=== PATIENT | male | born 1965 | race Caucasian/White ===

== ENCOUNTER 2019-06-05 00:11 | Outpatient (CLI) | payer OTHER, SELFPAY ==
[2019-06-05 09:42] LABS: Calculated LDL 219 mg/dL; Cholesterol 289 mg/dL (<200); Glucose 84 mg/dL (74-106); HDL Cholesterol 45 mg/dL (40-60); Triglyceride 128 mg/dL (<150)
[2019-06-08 09:32] LABS: PSA, Screening 0.4 ng/mL (0.0-3.5)
[2019-06-08 10:47] LABS: HIV-1/2 Ag & Ab Screen Negative (Negative)
== END 2019-06-05 00:31 ==
PROVIDERS: PCP Family Medicine; Visit Provider Family Medicine
DX: Z00.00 Encounter for general adult medical examination without abnormal findings (principal); Z13.220 Encounter for screening for lipoid disorders; Z13.1 Encounter for screening for diabetes mellitus; Z11.4 Encounter for screening for human immunodeficiency virus [HIV]; Z12.5 Encounter for screening for malignant neoplasm of prostate; F17.210 Nicotine dependence, cigarettes, uncomplicated
CPT/HCPCS: 36415; 80061; 82947; 84153; 87389

== ENCOUNTER 2019-06-05 01:17 | Outpatient (CLI) | payer OTHER, SELFPAY ==
--- NOTE | 2019-06-05 08:04 | DI.RAD_ITS ---
EXAM: XR HIP PELVIS ADULT BL CLINICAL HISTORY: roly hip pain x 1 yr, M25.551, M25.552 TECHNIQUE: COMPARISON: No exams were available for comparison FINDINGS: Three views were obtained. There are mild degenerative changes of the SI joints. There is mild narr owing of the cartilaginous joint spaces both hips. There are sclerotic and cystic changes of the sup erior acetabula bilaterally. Slight marginal osteophyte formation of right femoral head noted. IMPRESSION: DJD of both hips, moderate, right greater than left.
== END 2019-06-05 01:37 ==
PROVIDERS: PCP Family Medicine; Visit Provider Family Medicine
DX: M25.551 Pain in right hip (principal); M25.552 Pain in left hip; M16.0 Bilateral primary osteoarthritis of hip
CPT/HCPCS: 73521

== ENCOUNTER 2019-07-17 03:31 | Outpatient (CLI) | payer OTHER, SELFPAY ==
--- NOTE | 2019-07-17 06:45 | DI.RAD_ITS ---
EXAM: RF JOINT INJECTION FLUORO GUID CLINICAL HISTORY: PAIN-R HIP INJ UNDER FLUORO,OA RT HIP, M16.11. TECHNIQUE: 2D and realtime digital imaging was performed. Fluoro time:.04 min,.39 mGy COMPARISON: No exams were available for comparison FINDINGS: Fluoroscopy was provided for guidance with right hip injection. A single hard copy image shows need le projecting from the lateral aspect to the hip joint and injection of contrast. Please see procedu re note for details.
--- NOTE | 2019-07-17 13:17 | W.PROCNOTE ---
Procedure Note Date of procedure: 07/17/19 Procedure: Right Hip Injection with Fluoroscopic Guidance Surgeon/Proceduralist/Physician: Oh Ernst Procedure Diagnosis: Right Hip Osteoarthritis Procedure Indications: Hayes has had persistent pain of the RIGHT hip and groin. Noninvasive measures have been tried. To serve as both diagnostic and therapeutic, an injection under fluoroscopy was recommended. I had discussed the risks of the procedure and the patient elected to proceed. Procedure Description: Hayes was greeted in the flouroscopy room. The correct side was identified and the consent was reviewed with the patient and signed. The patient was then placed in the supine position on the fluoroscopy table. The RIGHT hip was then prepped with Chloraprep. The anterolateral injection starting point was identiifed by bony landmarks and fluoroscopy. The skin and soft tissue in the tract of the injection was anesthetized with 1% Lidocaine. A spinal needle was then inserted deep into the hip joint at the level of the lateral femoral neck under fluoroscopic guidance. A small amount of Omnipaque solution was injected to confirm intraarticular placement. Once confirmed, the hip was injected with 6cc of 0.5% Bupivicaine and 80mg of Depo-Medrol. A bandaid was placed on the injection site. The patient tolerated the procedure well and noted improvement in pre-injection pain.
[2019-07-17] MEDS: Omnipaque 300 MG/ML 10 ML BTL IJ (13:19)
[2019-07-17] MEDS: methylPREDNISolone ACETATE 80 MG/ML VIAL IM (13:23)
[2019-07-17] MEDS: Bupivacaine 0.5% Pres-Free 10 ML VIAL 6 ML IJ (13:27)
== END 2019-07-17 03:51 ==
PROVIDERS: PCP Family Medicine; Visit Provider Student in an Organized Health Care Education/Training Program
DX: M25.551 Pain in right hip (principal); M16.11 Unilateral primary osteoarthritis, right hip
CPT/HCPCS: 20610; 77002; J1040

== ENCOUNTER 2019-08-15 18:01 | Emergency (ER) | payer OTHER, SELFPAY ==
[2019-08-15 18:10] VITALS: BP 115/67; PULSE 76; RESP 16; TEMP 36.7; O2SAT 98
--- NOTE | 2019-08-15 18:45 | DI.RAD_ITS ---
EXAM: XR CHEST 2V PA LATERAL CLINICAL HISTORY: dizzy TECHNIQUE: 2D digital imaging was performed. COMPARISON: No exams were available for comparison FINDINGS: MEDIASTINUM: Normal. HEART: Normal. PULMONARY VASCULATURE: Normal. LUNGS: Clear. PLEURAL SPACE: No pleural effusion or pneumothorax. BONE:Normal. OTHER FINDINGS:Normal. IMPRESSION: No acute pulmonary findings. DATA REPOSITORY: RADIATION DOSE DELIVERED:
[2019-08-15] MEDS: Meclizine 25 MG TAB PO (18:49)
[2019-08-15 19:04] LABS: Abs Immature Grans 0.02 k/cumm (0.0-0.09); Absolute Basophil Count 0.02 k/cumm (0.0-0.2); Absolute Lymphocyte Count 1.14 k/cumm (1.2-3.4); Absolute Monocyte Count 0.64 k/cumm (0.11-0.7); Absolute Neutrophil Count 8.62 k/cumm (1.2-6.7); Basophils % 0.2; Eosinophils % 0.9; HCT 40.1 % (40.0-50.0); HGB 14.1 g/dL (13.5-17.5); Immature Grans % 0.2 %; Lymphocytes % 10.8; Mean Corp. HGB Concentration 35.2 g/dL (32.0-36.0); Mean Corpuscular Hemoglobin 31.5 pg (27.0-33.0); Mean Corpuscular Volume 89.5 fL (80-95); Mean Platelet Volume 9.9 fL (8.0-11.0); Monocytes % 6.1; Neutrophils % 81.8; Platelet Count 227 x1000/uL (130-400); RBC 4.48 m/cumm (4.50-6.00); RBC Distribution Width 12.4 % (11.8-14.1); White Blood Cell Count 10.54 k/cumm (4.4-10.8)
[2019-08-15 19:05] LABS: Bilirubin Negative (Negative); Blood Negative (Negative); Clarity Clear (Clear); Glucose Negative (Negative); Ketones Negative (Negative); Leukocyte Esterase Negative (Negative); Nitrite Negative (Negative); Urobilinogen 0.2 EU/dL (Up TO 0.2)
--- NOTE | 2019-08-15 19:19 | DI.VRAD_ITS ---
PROCEDURE INFORMATION: Exam: XR Chest, 2 Views Exam date and time: 08/15/2019 7:13 PM Age: 54 years old Clinical indication: Other: Dizzy TECHNIQUE: Imaging protocol: XR of the chest Views: 2 views. COMPARISON: No relevant prior studies available. FINDINGS: Lungs: Unremarkable. No consolidation. Pleural space: Unremarkable. No pleural effusion. No pneumothorax. Heart/Mediastinum: Unremarkable. No cardiomegaly. Bones/joints: Unremarkable for patient's age. IMPRESSION: No acute cardiopulmonary findings. Dictated and Authenticated by: Kathie Marie MD. Ordering:DUYEN Armenta MD
[2019-08-15 19:26] LABS: ALT 41 U/L (16-63); AST 27 U/L (15-37); Albumin 4.1 g/dL (3.4-5.0); Alkaline Phosphatase 65 U/L (46-116); Anion Gap 7.3 mmol/L (3-11); BUN 15 mg/dL (7-18); Bilirubin, Total 1.1 mg/dL (0.2-1.0); CO2 29.7 mmol/L (21.0-32.0); CREATININE 1.11 mg/dL (0.70-1.30); Chloride 101 mmol/L (98-107); Glucose 137 mg/dL (74-106); Magnesium 1.7 mg/dL (1.8-2.4); Potassium 4.1 mmol/L (3.5-5.1); Sodium 138 mmol/L (136-145); TSH 0.98 uIU/mL (0.36-3.74); Total Protein 7.3 g/dL (6.4-8.2); Troponin I < 0.05 ng/Ml (<0.06)
--- NOTE | 2019-08-15 20:07 | W.ED.GENAD ---
Discharge Plan Disposition Patient Disposition: HOME Condition: Stable Discharge Details Chief Complaint: Dizzy/Sync Clinical Impression: Dizziness Primary Care Provider: Antonino Sharma ED Provider: Geovany Jauregui Home Meds and New Rx's Prescriptions: No Action One-A-Day Men's 50 Plus 400-20-370 mcg tablet 1 tab PO DAILY RF: 0 omega 6-gqr-wob-fish oil [Fish Oil] 1,000 mg (120 mg-180 mg) capsule 1 cap PO DAILY RF: 0 ibuprofen 800 mg tablet 800 mg PO Q8H PRN (Reason: pain) Qty: 90 RF: 3 rosuvastatin 20 mg tablet 20 mg PO DAILY Qty: 90 RF: 3 Discharge Instructions Instructions: Dizziness (ED) Additional Instructions: At this time work-up in the ER is unremarkable for emergent process. You are asymptomatic. As we discussed. Please watch for new or evolving symptoms and return immediately to the ER. Otherwise I recommend contacting your primary care provider Saturday morning for prompt outpatient reevaluation. Medical Decision Making 54-year-old gentleman who presents to the ER having felt dizzy, off balance, shaky, tingling, or warm all over that began around 5:00. By the time he got to the ER symptoms had almost completely resolved. He never had any pain during this process. He did not have a syncopal episode, did not feel as though he was going to pass out, certainly sounds like he had a vagal response. He currently appears well, nontoxic and is neurologically intact given his age and comorbidities I will initiate a cardiac work-up although low suspicion for ACS. Given he is neurologically intact, low suspicion for CVA, TIA, posterior stroke, etc., I do not believe that advanced imaging is emergently indicated. Will give oral meclizine, obtain laboratory values, and reassess. Patient comfortable this plan Initial laboratory values are unremarkable. I discussed these findings with patient. Upon reevaluation he reports that he is completely asymptomatic. He is agreeable to await a 3-hour repeat EKG and troponin for rapid cardiac rule out. Patient use the phone to speak with his significant other without difficulty. He was observed ambulating steadily to the restroom. Repeat EKG performed at [address] Hinson. Sinus rhythm, ventricular rate of 71. No acute ST elevation or depression segments. No dynamic changes when compared to initial EKG Repeat troponin is undetectable. Upon another reevaluation patient is resting comfortably, remains asymptomatic. We once again discussed his work-up here in the ER, the importance of prompt outpatient reevaluation and contacting his primary care provider on Saturday. He was also encouraged to return to the ER for new or evolving symptoms. Patient has no additional questions or concerns and is comfortable with this plan. Medical Records Medical records reviewed: Yes I reviewed the patient's medical records. Imaging Data Radiologic Study: Attestation: I personally reviewed and interpreted this imaging study as follows: Imaging: X-Ray My impression: Chest x-ray read by me as unremarkable, later confirmed by virtual radiology Lab Data Lab results reviewed: Yes I reviewed the patient's lab results. Lab results narrative: Laboratory Tests Range/Units 08/15/19 08/15/19 08/15/19 18:52 18:52 18:52 WBC (4.4-10.8) k/cumm 10.54 RBC (4.50-6.00) m/cumm 4.48 L Hgb (13.5-17.5) g/dL 14.1 Hct (40.0-50.0) % 40.1 MCV (80-95) fL 89.5 MCH (27.0-33.0) pg 31.5 MCHC (32.0-36.0) g/dL 35.2 RDW (11.8-14.1) % 12.4 Plt Count (130-400) x1000/uL 227 MPV (8.0-11.0) fL 9.9 Immature Gran % % 0.2 Neutrophils % 81.8 Lymphocytes % 10.8 Monocytes % 6.1 Eosinophils % 0.9 Basophils % 0.2 Absolute Neutrophils (1.2-6.7) k/cumm 8.62 H Absolute Lymphocytes (1.2-3.4) k/cumm 1.14 L Absolute Monocytes (0.11-0.7) k/cumm 0.64 Absolute Eosinophils (0.0-0.7) k/cumm 0.10 Absolute Basophils (0.0-0.2) k/cumm 0.02 Sodium (136-145) mmol/L 138 Potassium (3.5-5.1) mmol/L 4.1 Chloride (98-107) mmol/L 101 Carbon Dioxide (21.0-32.0) mmol/L 29.7 Anion Gap (3-11) mmol/L 7.3 BUN (7-18) mg/dL 15 Creatinine (0.70-1.30) mg/dL 1.11 Estimated GFR/1.73 m2 (mL/min/1.73m2) >= 60.00 Glucose (74-106) mg/dL 137 H Calcium (8.5-10.1) mg/dL 9.0 Magnesium (1.8-2.4) mg/dL 1.7 L Total Bilirubin (0.2-1.0) mg/dL 1.1 H AST (15-37) U/L 27 ALT (16-63) U/L 41 Alkaline Phosphatase (46-116) U/L 65 Troponin I (<0.06) ng/Ml < 0.05 Total Protein (6.4-8.2) g/dL 7.3 Albumin (3.4-5.0) g/dL 4.1 TSH (0.36-3.74) uIU/mL 0.98 Urine Color (Yellow) Yellow Urine Clarity (Clear) Clear Urine pH (5-8) 7.0 Ur Specific [place] (1.005-1.025) 1.020 Urine Protein (Negative) mg/dL Negative Urine Ketones (Negative) mg/dL Negative Urine Blood (Negative) Negative Urine Nitrite (Negative) Negative Urine Bilirubin (Negative) Negative Urine Urobilinogen (Up TO 0.2) EU/dL 0.2 Ur Leukocyte Esterase (Negative) Negative Urine Glucose (Negative) mg/dL Negative Range/Units 08/15/19 18:59 WBC (4.4-10.8) k/cumm RBC (4.50-6.00) m/cumm Hgb (13.5-17.5) g/dL Hct (40.0-50.0) % MCV (80-95) fL MCH (27.0-33.0) pg MCHC (32.0-36.0) g/dL RDW (11.8-14.1) % Plt Count (130-400) x1000/uL MPV (8.0-11.0) fL Immature Gran % % Neutrophils % Lymphocytes % Monocytes % Eosinophils % Basophils % Absolute Neutrophils (1.2-6.7) k/cumm Absolute Lymphocytes (1.2-3.4) k/cumm Absolute Monocytes (0.11-0.7) k/cumm Absolute Eosinophils (0.0-0.7) k/cumm Absolute Basophils (0.0-0.2) k/cumm Sodium (136-145) mmol/L Potassium (3.5-5.1) mmol/L Chloride (98-107) mmol/L Carbon Dioxide (21.0-32.0) mmol/L Anion Gap (3-11) mmol/L BUN (7-18) mg/dL Creatinine (0.70-1.30) mg/dL Estimated GFR/1.73 m2 (mL/min/1.73m2) Glucose (74-106) mg/dL Calcium (8.5-10.1) mg/dL Magnesium (1.8-2.4) mg/dL Total Bilirubin (0.2-1.0) mg/dL AST (15-37) U/L ALT (16-63) U/L Alkaline Phosphatase (46-116) U/L Troponin I (<0.06) ng/Ml < 0.05 Total Protein (6.4-8.2) g/dL Albumin (3.4-5.0) g/dL TSH (0.36-3.74) uIU/mL Urine Color (Yellow) Urine Clarity (Clear) Urine pH (5-8) Ur Specific [place] (1.005-1.025) Urine Protein (Negative) mg/dL Urine Ketones (Negative) mg/dL Urine Blood (Negative) Urine Nitrite (Negative) Urine Bilirubin (Negative) Urine Urobilinogen (Up TO 0.2) EU/dL Ur Leukocyte Esterase (Negative) Urine Glucose (Negative) mg/dL HPI General Mode of arrival: ambulatory. Date/Time Provider Initiated Documentation: 08/15/19 18:02. Limitations to Documentation: no limitations. Information obtained by: patient. HPI Narrative: This is a 54-year-old gentleman with a history of osteoarthritis, hyperlipidemia, current smoker, presenting to the ER today reporting at 430 he ate a large portion of spaghetti and then approximately 30 minutes later he felt tingling in his hands, feet, face, felt warm body wide and reports feeling dizzy. Upon further investigating he reports the dizziness was more of a altered or off-balance sensation he did not feel like the room was spinning. He denies any chest pain whatsoever. Denies headache, visual changes, neck pain, shortness of breath, abdominal pain, diarrhea, constipation, weakness, or numbness. He did report feeling nauseous when this began but that has resolved completely. He reports his symptoms now are only 1 or 2 out of 10 and have mostly resolved prior to coming to the ER. Of note his medical history reports hyperlipidemia associated with type 2 diabetes however patient denies history of diabetes does not take any medications for diabetes. Related Data Home Medications Medication Instructions Recorded Confirmed kkszxqjiyoej-xmw-cxcaw acid-vit 1 tab PO DAILY 05/29/19 08/15/19 K-lycop 400 mcg-20 mcg-370 mcg tablet omega 3-qjy-ndf-fish oil 1,000 mg 1 cap PO DAILY 05/29/19 08/15/19 (120 mg-180 mg) capsule rosuvastatin 20 mg tablet 20 mg PO DAILY #90 tab 06/16/19 08/15/19 ibuprofen 800 mg tablet 800 mg PO Q8H PRN #90 tab 07/13/19 08/15/19 Previous Rx's Medication Instructions Recorded rosuvastatin 20 mg tablet 20 mg PO DAILY #90 tab 06/16/19 ibuprofen 800 mg tablet 800 mg PO Q8H PRN #90 tab 07/13/19 Allergies Allergy/AdvReac Type Severity Reaction Status Date / Time No Known Allergies Allergy Verified 08/15/19 18:15 General Stated Complaint: Dizzy/Sync JONE: 3 Review of Systems Constitutional Constitutional: Denies fatigue, Denies fever(s) and Denies headache(s) Eyes Eyes: Denies change in vision ENT Ears, Nose, Mouth, and Throat: Denies vertigo, Reports dizziness, Denies otalgia, Denies headache(s) and Reports other (Reports feeling like water was in his ears 2 days ago) Cardiovascular Cardiovascular: Denies chest pain and Denies dyspnea Respiratory Respiratory: Denies cough and Denies dyspnea Gastrointestinal Gastrointestinal: Denies abdominal pain, Reports nausea and Denies vomiting Genitourinary Genitourinary: Denies dysuria Musculoskeletal Musculoskeletal: Denies back pain, Denies muscle weakness, Denies numbness and Reports tingling Integumentary/Breasts Skin/Breast: Denies rash Neurologic Neurologic: Denies confusion, Denies vertigo, Reports dizziness, Denies headache(s), Denies lack of coordination, Denies localized weakness, Denies numbness and Reports tingling Psychiatric Psychiatric: Denies confusion Endocrine Endocrine: Denies fatigue [facility] Medical History Abdominal pain (Acute) Fatigue (Acute) Hyperlipidemia associated with type 2 diabetes mellitus (Acute) Well adult (Acute) Family History Mother No problems noted. Father , age 74 Hyperlipidemia COPD (chronic obstructive pulmonary disease) Brother Alcohol abuse Substance abuse Son No problems noted. Social History Smoking/Tobacco Use Status: Current every day Tobacco Type: cigarettes Quit status: considering quitting Smoking risk assessment performed?: Yes Alcohol Intake: former Drug use: Daily Substance use type: marijuana Details: marijuana 3 hours ago Caregiver/Support person: No Household members: family Housing: apartment Communication Needs: None Do you need help understanding health information?: Never Pets and animals: Yes Pets and animals: dog(s) Sexually active: Yes Do you think of yourself as: straight/heterosexual Current gender identity: male What is your relationship status?: How often do you talk on the phone with friends or family?: three or more times per week How often do you get together with friends or relatives?: once per week How often do you attend jainism or baptism services?: decline to answer Do you belong to any clubs or organized social groups?: no Panel score (0-1 are the most socially isolated patients): 1 What type of physical activity do you participate in: none Frequency: does not exercise Dai/Roman Catholic: None Special dai needs: No Seatbelt use: always Helmet use: Yes Helmet use: always Drive intox or ride w/intox sulky driver: No Exam Const General: cooperative, healthy appearing, comfortable and no acute distress Orientation: alert, awake and oriented x3 HENMT Head: normal to inspection, normocephalic and atraumatic Ears: external ears normal, TM's normal bilaterally and EAC's normal Mouth: moist mucous membranes Throat: posterior oropharynx normal Eyes General: appearance normal, both eyes and all related structures Alignment and Position: alignment normal Periorbital: periorbital findings normal Eyelids: eyelids normal Conjunctivae: conjunctivae normal Sclera: sclerae normal Cornea: corneas normal Pupils: PERRL EOM: EOM intact bilaterally and No nystagmus Direct ophthalmoscopy: normal light reflex Neck Neck: normal visual inspection, full ROM, no lymphadenopathy, no meningeal signs, trachea midline and supple Resp Effort & Inspection: normal respiratory effort and able to speak in complete sentences Auscultation: clear to auscultation bilaterally Cardio Rate: regular rate Rhythm: regular rhythm GI Palpation: soft, not firm, no guarding, not rigid and nontender Auscultation: normal bowel sounds Back/Spine/Pelvis Back: No back tenderness Skin General skin exam: no rashes or lesions noted Neuro General: patient alert, patient awake, patient oriented x3, moves all extremities and no focal motor deficits Cranial Nerves: CN's II-XI intact bilaterally and no nystagmus Cognition: normal cognition Speech: speech normal Gait: normal gait Motor: muscle tone normal throughout, strength 5/5 throughout, no pronator drift and no movement abnormalities noted Sensory Exam: no sensory deficits noted Coordination: klqnrk-en-zhpm test normal, Does not sway with eyes open and rapid alternating movement UE normal Extrem General: normal to inspection, full ROM and capillary refill normal Psych Appearance: grossly normal Mental Status: mental status grossly normal Course Vital Signs Vital signs: Vital Signs Temperature 36.7 C 08/15/19 18:10 Pulse 76 08/15/19 18:10 Respiratory Rate 16 08/15/19 18:10 Blood Pressure 115/67 08/15/19 18:10 Pulse Oximetry 98 08/15/19 18:10 Temperature 36.7 C 08/15/19 18:10 Pulse 76 08/15/19 18:10 Respiratory Rate 16 08/15/19 18:10 Respiratory Effort 08/15/19 18:29 Respiratory Depth Normal 08/15/19 18:29 Blood Pressure 115/67 08/15/19 18:10 Blood Pressure Position Supine 08/15/19 18:10 Pulse Oximetry 98 08/15/19 18:10 Oxygen Delivery Method Room Air 08/15/19 18:10 Oxygen Flow Rate 0 08/15/19 18:10 Pain Level 0 08/15/19 18:10 Lab/Test Results Lab/Test Results: Laboratory Tests Range/Units 08/15/19 08/15/19 08/15/19 18:52 18:52 18:52 WBC (4.4-10.8) k/cumm 10.54 RBC (4.50-6.00) m/cumm 4.48 L Hgb (13.5-17.5) g/dL 14.1 Hct (40.0-50.0) % 40.1 MCV (80-95) fL 89.5 MCH (27.0-33.0) pg 31.5 MCHC (32.0-36.0) g/dL 35.2 RDW (11.8-14.1) % 12.4 Plt Count (130-400) x1000/uL 227 MPV (8.0-11.0) fL 9.9 Immature Gran % % 0.2 Neutrophils % 81.8 Lymphocytes % 10.8 Monocytes % 6.1 Eosinophils % 0.9 Basophils % 0.2 Absolute Neutrophils (1.2-6.7) k/cumm 8.62 H Absolute Lymphocytes (1.2-3.4) k/cumm 1.14 L Absolute Monocytes (0.11-0.7) k/cumm 0.64 Absolute Eosinophils (0.0-0.7) k/cumm 0.10 Absolute Basophils (0.0-0.2) k/cumm 0.02 Sodium (136-145) mmol/L 138 Potassium (3.5-5.1) mmol/L 4.1 Chloride (98-107) mmol/L 101 Carbon Dioxide (21.0-32.0) mmol/L 29.7 Anion Gap (3-11) mmol/L 7.3 BUN (7-18) mg/dL 15 Creatinine (0.70-1.30) mg/dL 1.11 Estimated GFR/1.73 m2 (mL/min/1.73m2) >= 60.00 Glucose (74-106) mg/dL 137 H Calcium (8.5-10.1) mg/dL 9.0 Magnesium (1.8-2.4) mg/dL 1.7 L Total Bilirubin (0.2-1.0) mg/dL 1.1 H AST (15-37) U/L 27 ALT (16-63) U/L 41 Alkaline Phosphatase (46-116) U/L 65 Troponin I (<0.06) ng/Ml < 0.05 Total Protein (6.4-8.2) g/dL 7.3 Albumin (3.4-5.0) g/dL 4.1 TSH (0.36-3.74) uIU/mL 0.98 Urine Color (Yellow) Yellow Urine Clarity (Clear) Clear Urine pH (5-8) 7.0 Ur Specific [place] (1.005-1.025) 1.020 Urine Protein (Negative) mg/dL Negative Urine Ketones (Negative) mg/dL Negative Urine Blood (Negative) Negative Urine Nitrite (Negative) Negative Urine Bilirubin (Negative) Negative Urine Urobilinogen (Up TO 0.2) EU/dL 0.2 Ur Leukocyte Esterase (Negative) Negative Urine Glucose (Negative) mg/dL Negative
[2019-08-15 21:28] LABS: Troponin I < 0.05 ng/Ml (<0.06)
[2019-08-15 21:31] VITALS: BP 106/65; PULSE 69; RESP 17; O2SAT 98
== END 2019-08-15 21:50 | disposition home or self-care (01) ==
PROVIDERS: Emergency Provider Physician Assistant; PCP Family Medicine
DX: R42 Dizziness and giddiness (principal)
CPT/HCPCS: 80053; 93005; 99284; 71046; 81003; 83735; 84443; 84484; 85025; 93010

== ENCOUNTER 2019-11-23 07:30 | Outpatient (CLI) | payer OTHER, SELFPAY ==
[2019-11-27 18:11] LABS: SARS-CoV-2 RNA Undetected (Undetected); SARS-CoV-2 Specimen Source Nasopharynx
== END 2019-11-23 07:50 ==
PROVIDERS: PCP Family Medicine; Visit Provider Family Medicine
DX: Z11.59 Encounter for screening for other viral diseases (principal)
CPT/HCPCS: U0003

== ENCOUNTER → 2020-06-01 18:55 | Outpatient (REF) | payer OTHER, SELFPAY ==
[2020-06-01 22:18] LABS: ALT 47 U/L (16-63); AST 31 U/L (15-37); Calculated LDL 102 mg/dL (<100); Cholesterol 174 mg/dL (<200); HDL Cholesterol 53 mg/dL (40-60); Triglyceride 98 mg/dL (<150)
== END ==
LOC: NCHCN 18:55
PROVIDERS: PCP Family Medicine; Visit Provider Family Medicine
DX: E78.5 Hyperlipidemia, unspecified (principal); E11.69 Type 2 diabetes mellitus with other specified complication
CPT/HCPCS: 80061; 84450; 84460

== ENCOUNTER 2020-07-11 11:06 | Outpatient (CLI) | payer OTHER, SELFPAY ==
--- NOTE | 2020-07-11 10:00 | DI.RAD_ITS ---
EXAM: XR KNEE RT 3V AP,LAT,PABLO CLINICAL HISTORY: R knee pain. TECHNIQUE: 2D digital imaging was performed. COMPARISON: CR,XR XR CHEST 2V PA LATERAL from 08/15/2019 FINDINGS: BONES: No acute fracture is present. No bony destructive lesion is seen. JOINTS: The knee is normally aligned. Small joint effusion. SOFT TISSUE: Normal. IMPRESSION: Small joint effusion otherwise unremarkable examination. DATA REPOSITORY: RADIATION DOSE DELIVERED:
--- NOTE | 2020-07-11 10:00 | DI.RAD_ITS ---
EXAM: XR PELVIS AP CLINICAL HISTORY: R hip OA. TECHNIQUE: 2D digital imaging was performed. COMPARISON: CR XR HIP PELVIS ADULT BL from 06/05/2019 FINDINGS: There are noak-ut-arhurpmr degenerative changes of the right hip with joint space narrowing, subchond ral sclerosis and periarticular spurring present. More mild degenerative changes are seen in the lef t hip. The sacroiliac joints are intact as is the symphysis pubis. The bones are intact and normall y mineralized. The soft tissues are unremarkable. IMPRESSION: Stable degenerative changes of the right hip. DATA REPOSITORY: RADIATION DOSE DELIVERED:
== END 2020-07-11 11:07 | disposition home or self-care (01) ==
LOC: DIORS 11:06
PROVIDERS: PCP Family Medicine; Referring Provider Family Medicine; Visit Provider Physician Assistant
DX: M25.551 Pain in right hip (principal); M16.11 Unilateral primary osteoarthritis, right hip; M25.561 Pain in right knee; M25.461 Effusion, right knee
CPT/HCPCS: 73562; 72170

== ENCOUNTER 2020-07-25 03:12 | Outpatient (CLI) | payer OTHER, SELFPAY ==
[2020-07-25 10:53] LABS: HCT 45.1 % (40.0-50.0); HGB 15.3 g/dL (13.5-17.5); MCH 30.7 pg (27.0-33.0); MCHC 33.9 % (32.0-36.0); MCV 90.6 fL (80-95); MPV 10.5 fL (8.0-11.0); Platelet Count 212 10^3/uL (130-400); RBC 4.98 10^6/uL (4.36-5.78); RDW-SD 39.9 fL; WBC 7.29 10^3/uL (4.4-10.8)
[2020-07-25 11:12] LABS: Hemoglobin A1C 5.7 % (<5.7)
[2020-07-25 11:48] LABS: Anion Gap 8.5 mmol/L (3-11); BUN 14 mg/dL (7-18); CO2 28.5 mmol/L (21.0-32.0); CREATININE 0.9 mg/dL (0.70-1.30); Calcium 9.2 mg/dL (8.5-10.1); Chloride 104 mmol/L (98-107); Glucose 73 mg/dL (74-106); Potassium 4.4 mmol/L (3.5-5.1); Sodium 141 mmol/L (136-145)
[2020-07-25 11:55] LABS: Source Nasal/Nares
[2020-07-25 22:00] LABS: COVID-19 PCR Negative (Negative)
== END 2020-07-25 03:13 | disposition home or self-care (01) ==
LOC: LBO 03:12
PROVIDERS: PCP Family Medicine; Visit Provider Student in an Organized Health Care Education/Training Program
DX: M25.551 Pain in right hip (principal); M16.11 Unilateral primary osteoarthritis, right hip; Z01.818 Encounter for other preprocedural examination; Z01.812 Encounter for preprocedural laboratory examination; R73.09 Other abnormal glucose
CPT/HCPCS: 36415; 80048; 85027; 86850; 86900; 86901; 83036

== ENCOUNTER 2020-07-27 08:19 | Day surgery (SDC) | payer OTHER, SELFPAY ==
[2020-07-27] VITALS (10 sets, daily range): BP systolic 100–127; BP diastolic 49–77; PULSE 52–67; RESP 8–18; TEMP 36.2–36.7; O2SAT 98–100
[2020-07-27] MEDS: Celecoxib 200 MG CAP 400 MG PO (08:56)
[2020-07-27] MEDS: Acetaminophen 500 MG TAB 1000 MG PO (08:56)
[2020-07-27] MEDS: Lactated Ringers 1,000 ML 80 ML IV (09:14)
[2020-07-27] MEDS: ceFAZolin 2 GM/50 ML BAG IVPB (10:57)
[2020-07-27] MEDS: Bupivacaine 0.25% Pres-Free 30 ML VIAL (11:45)
[2020-07-27] MEDS: Ketorolac 30 MG/ML VIAL (11:46)
--- NOTE | 2020-07-27 12:29 | DI.RAD_ITS ---
EXAM: XR HIP RT IN OR CLINICAL HISTORY: RIGHT OSTEOARTHRITIS. TECHNIQUE: 2D digital imaging was performed. COMPARISON: Prior x-rays 07/11/2020 FINDINGS: Prostate was provided during right hip arthroplasty. Supplied image reveals satisfactory position al ignment of the components of the prosthesis. Fluoroscopy time 44.7 seconds; total cumulative dose 5.43mGy IMPRESSION: DATA REPOSITORY: RADIATION DOSE DELIVERED:
--- NOTE | 2020-07-27 13:49 | W.PM.OP ---
Date of service: 07/27/20 Time of Service: 13:50 Operative Note Operative Note DATE OF PROCEDURE: 07/27/20 PRE-OP DIAGNOSIS: Right Hip Osteoarthritis POST-OP DIAGNOSIS: same PROCEDURE: Right Anterior Total Hip Arthroplasty SURGEON: Oh Ernst HEATER MECHANIC: Justino Radford ANESTHESIA TYPE: Spinal Refer to Anesthesia Record ESTIMATED BLOOD LOSS: 200 PATHOLOGY: none sent TOURNIQUET TIME: 0 COMPLICATIONS: None Patient was transported to: PACU Patient's condition: stable Implants: 1. Depuy [place] Acetabular Component, 52mm 2. Depuy Acetabular Liner, [id number] 3. Depuy Corail Standard 125 degree Collared Femoral Stem, Size 11 4. Depuy Altrx Ceramic Femoral Head, Size 36+5mm Indications: I have seen Hayes in clinic for symptoms of hip arthritis, confirmed with radiographic findings. Hayes has exhausted nonoperative methods and was having significant limitations in daily function and desired better function and less pain. I discussed the technical details of a hip replacement. I explained the risks of the procedure to include, but not limited to, bleeding, infection, pain, stiffness, fracture, damage to nerves and vessels, damage to muscles and tendons, loosening, instability, leg length inequality, need for repeat procedure, blood clot and cardiopulmonary demise. Despite these risks, he elected to proceed. Findings: There was significant signs of arthritis of the superior femoral head and superior acetabulum. Procedure Description: Hayes was greeted in the preoperative holding area where the correct side was identified and marked. The consent was reviewed with the patient and signed. The history and physical was updated. All questions were answered. He was taken back to the operating room. A spinal anesthestic was then administered. The feet were wrapped with cast padding and Coban and then placed into the boot liners and then into the boots. Care was taken to protect the skin and make sure the heels were fully down and the boots were stable. The patient was then positioned onto the HANA table. Both legs were held in a neutral position. SCDs were applied. The patient was then slid down onto a peroneal post. Prophylactic antibiotics in the form of Cefazolin were administered. 1g of Tranxemic Acid was given intravenously within 30 minutes of incision. The right leg was then prepped with Chloraprep and draped in a standard fashion. A second prep with Chloraprep was performed prior to placement of a shower-curtain type drape with Iodine impregnated skin protection. A timeout to confirm correct identity, side and site, procedure, allergies, anesthesia, and medical concerns was performed. An obliquely oriented incision was made starting lateral to the ASIS and running distal over the Tensor Fascia Mervat (TFL) muscle belly toward the fibular head, approximately 10cm. The skin and soft tissue was dissected sharply, through Suad?s fascia, and to the fascia of the TFL. With the fascia and superior border of the IT band identified, the fascia was incised with a new knife just above any perforators from the IT band. The TFL muscle belly was bluntly dissected away from the fascia and moved laterally. The fat between TFL and rectus was identified to ensure the dissection was not within the TFL. Blunt dissection created space between abductors and the capsule and retractor was placed over the lateral femoral neck. The fibers of the rectus femoris tendon were identified and these were freed from the anterior capsule. A second cobra retractor was placed around the medial femoral neck. The TFL was further retracted laterally to show the deep fascia. Careful dissection through this layer identified three main crossing vessels of the lateral femoral circumflex. These were cauterized in multiple locations and then cut without any noticeable bleeding. The TFL was further released bluntly from the deep fascia to expose anterior hip capsule and fat The Juan Jose orthopaedic retractor was then placed beneath the TFL and against sartorius and medial soft tissues to protect and retract the soft tissues. A T-capsulotomy was then performed starting at the superior lateral acetabulum and moving distally to the intertrochanteric ridge. These capsular flaps were tagged with a No. 1 Ethibond and elevated from within. The capsular flaps were released to the shoulder of the lateral neck and to the lesser trochanter to give excellent visualization of the proximal femur. A neck osteotomy was performed using an oscillating saw based on preoperative templates. This cut started in the shoulder and of the lateral neck and exited medially. The saw was at all times directed medially to avoid injury to the greater trochanter. Gross traction was applied to the leg and the osteotomy opened. The femoral head was removed with a corkscrew, making sure to protect the TFL on its exit. Traction was released after head removal. This was measured on the back table to determine the starting reamer size. Portions of the rectus obscuring visualization were minimally elevated off the superior acetabulum. An anterior retractor was placed over the anterior wall between capsule and labrum and attached to the Gripper retraction system. The femur was rotated to 90 degrees and medial capsule was fully released until the lesser trochanter was palpable and visible; the femur was returned to 30 degrees. A posterior retractor was placed similarly between capsule and labrum. This provided excellent visualization. The contents of the cotyloid fossa were removed with electrocautery and the labrum was removed with a knife. There was significant chondromalacia of the superior acetabulum. Acetabular reaming began with a 47mm reamer. This first reaming was directed anterior to posterior and medial to get down to the true floor. This was inspected and reamed until the true floor was reached. The anterior retractor was then released and entry and exit was provided by traction on the capsular flaps. I then reamed sequentially up to a 51mm reamer where good fit was obtained. The larger reamers were oriented based on anatomical reference of the anterior and lateral saenz to ensure proper abduction and anteversion. Positioning and size was confirmed with the fluoroscopy. A 52mm Depuy [place] acetabular component was selected. The acetabulum was reamed around the periphery with the selected acetabular size to prevent a rim fit. The deep tissues were irrigated. The acetabular component was then impacted in a position of about 40-45 degrees of abduction and 15-20 degrees of anteversion, using the patient?s anatomy as the ultimate landmark. Fluoroscopy was used to confirm this. There was excellent tire buster of the acetabular component and the inserting handle was removed. The acetabular liner, Depuy [id number] polyethylene liner, was inserted and lined up with the tines of the acetabular component. There was no soft tissue interposition. The liner was then impacted into position and confirmed to be well-seated. A portion of the dorian-articular cocktail was then injected around the acetabulum into the capsule and periosteum. This cocktail consisted of 50cc of 0.25% Bupivicaine and 20cc of Exparel and 30mg of Ketorolac. The leg was rotated to 120 degrees. Any remaining medial capsule was released until the lesser trochanter was easily palpable. A retractor was placed medially. The lateral capsule was further released into the shoulder to allow access to the greater trochanter. A Colbert retractor was placed over the greater trochanter which allowed the trochanter to flip in front of the capsule for excellent exposure. The leg was brought down into maximal extension and 20 degrees of adduction while ensuring there was no impingement on the acetabulum. Any remnant capsule within the trochanter was released. Piriformis and obturator externis were identified and protected. There was excellent access to the proximal femur. The lateral neck remnant was removed with a rongeur. A blunt canal probe was used to identify the canal and trajectory for later broaching. A box osteotome initiated the broach course. A small curved rasp and a curved curette were used to work laterally. Broaching then began with a size 8 Corail broach. This was inserted manually around the trochanter and into the canal before mallet blows. The broach was seated to a few millimeters below the cut level based on the neck cut and the preoperative template. Sequential broaching was continued with the Insight Plusse pneumatic broaching device until a tight fit was obtained with good rotational control of the femur. The broach was not quite as deep as I was expecting but there was excellent fit so I trialed a standard 125 degree neck instead of the planned high offset. This was inserted along with a +5 trial head. The leg was brought out of extension and adduction and then reduced with traction and internal rotation. The leg was stable anteriorly in a position of 30 degrees of extension and 90 degrees of external rotation. Fluoroscopy was used to ensure there was no fracture and the stem was seated well. Leg lengths were checked with an AP pelvis and pelvic reference points. [employer] navigation system was used to confirm appropriate positioning and leg length and offset. Once content with the desired offset and leg lengths, the leg was brought back into extension, external rotation and adduction. The periosteum and surrounding tissue was injected with remaining portion of the dorian-articular cocktail. The proximal femur was irrigated as well as the deep tissues. The Depuy Corail standard 125 degree collared stem, size 11, was then manually inserted into the proximal femur making sure to control rotation. It was then malleted into position with light blows, giving breaks to allow bone expansion and decrease risk of fracture. The selected Depuy Altrx Ceramic Head, size 36+5mm, was then placed onto the clean and dry trunnion and secured with impaction onto the tapered fit. The leg was brought back out of extension and adduction and reduced with traction and internal rotation. Stability was confirmed with no shuck at 90 degrees of external rotation and 30 degrees of extension. No impingement through range of motion arc. Final x-ray images were obtained with fluoroscopy to confirm adequate positioning and no intraoperative fracture. The deep tissues were thoroughly irrigated with Irrisept chlorhexadine solution. The second dose of TXA 1g was administered intravenously.The capsule was then reapproximated with the previously placed Ethibond sutures. The TFL fascia was finally closed with a No. 2 Stratafix, barbed suture. Deep tissues were then reapproximated with 0 Vicryl and a running 2-0 Vicryl. The skin was closed with a running 4-0 Monocryl in a subcuticular fashion. This was reinforced with skin glue. A Mepilex silver dressing was applied. At the end of the case, all counts were correct. Hayes was transferred to the hospital bed without difficulty and suffering no apparent complication. Hayes has a good prognosis. Physical therapy will start today and without restrictions, weight-bearing as tolerated. Aspirin 81mg BID will be used for DVT prophylaxis.
[2020-07-27] MEDS: oxyCODONE 5 MG TAB PO (13:56)
--- NOTE | 2020-07-27 14:02 | W.PM.DSUDISC ---
Discharge Plan Disposition Patient Disposition: HOME Condition: Good Discharge Details Reason For Visit: Right Hip Arthritis Attending Provider: Oh Ernst Primary Care Provider: Antonino Sharma Home Meds and New Rx's Prescriptions: New aspirin 81 mg tablet,delayed release (DR/EC) 81 mg PO BID Qty: 60 RF: 0 acetaminophen 500 mg tablet 1,000 mg PO Q8H PRN (Reason: pain) Qty: 90 RF: 3 pantoprazole 40 mg tablet,delayed release (DR/EC) 40 mg PO DAILY Qty: 30 RF: 0 docusate sodium [Colace] 100 mg capsule 100 mg PO BID PRNQty: 10 RF: 0 ibuprofen 600 mg tablet 600 mg PO TID PRN (Reason: pain) Qty: 90 RF: 3 oxycodone 5 mg tablet 5 mg PO Q4H Qty: 12 RF: 0 Continued One-A-Day Men's 50 Plus 400-20-370 mcg tablet 1 tab PO DAILY RF: 0 omega 8-zoo-ixu-fish oil [Fish Oil] 1,000 mg (120 mg-180 mg) capsule 1 cap PO DAILY RF: 0 rosuvastatin 20 mg tablet 20 mg PO DAILY Qty: 90 RF: 3 Discontinued ibuprofen 800 mg tablet 800 mg PO Q8H PRN (Reason: pain) Qty: 90 RF: 3 Discharge Instructions Additional Instructions: Total Hip Discharge Instructions Activity: The most important activity is to walk. You should try to take short walks a few times a day. You have no restrictions on movement or positioning, but do not try to force what you do. You will find some stiffness and weakness with hip flexion (lifting your knee). Do not try to strengthen this too early, continue to practice walking and stairs and this will come. - Outpatient physical therapy can be helpful to help return you to a normal gait and improve your flexibility and strength. This can start around 2 weeks. For some patients, it?s not necessary. Usually this is determined at the time of discharge or at the first post-operative visit. - You should wear the VIVIANA hose on both legs for 2 weeks. Dressing: Keep the surgical dressing in place for at least one week. After the first week it may be removed and replace with light gauze and tape or nothing. It may get wet after 3 days but avoid soaking the dressing. If it gets wet, just lightly pat dry. It is important to always keep some gauze between skin folds, especially when you are sitting. Spend some time with the wound exposed when you are lying flat as the incision does wrinkle onto itself. Medications: - You should take Tylenol and an anti-inflammatory, Ibuprofen, as your primary pain control medications. - You have been prescribed a stronger pain medication Oxycodone for breakthrough pain, take as needed as prescribed. - You have also been prescribed a stomach acid reduction agent Pantoprozole to help reduce stomach acid and reflux. - You will be taking Aspirin 81mg twice a day for DVT prevention unless instructed otherwise. - If you have constipation you should take Colace or Miralax (both [id number]). It takes most people 3-4 days to have a bowel movement. Follow-up: 2 weeks If you have any acute concerns or questions, please do not hesitate to contact the office at [phone]. You may contact Dr. Ernst with any questions after hours through the hospital at [phone] or on his cell phone at [phone]. Referrals: Oh Ernst MD [ [facility]] - Equipment/Supplies: Walker Activity:: Activity as Tolerated Shower/Bathe:: 72 hours Diet:: As Tolerated Discharge Orders Discharge Orders: Discharge Order (Routine); Ordered 07/27/20 Ordered By: Oh Ernst DS: Diagnosis Discharge Diagnosis (1) Osteoarthritis of right hip: Status: Acute
--- NOTE | 2020-07-27 15:13 | PT.INIE ---
Date of service: 07/27/20 Time of Service: 15:13 PT Notes Visit Reasons: Right Hip Arthritis Physical Therapy Day Surgery Unit Initial Evaluation Date: 07/27/2020 Referring Doctor: Oh Ernst MD PT Orders: PT CONSULT: Status post Ortho surgery. Status post right RUBA. Precautions: Fall. Standard. WBAT on right LE with AD. Patient Profile/Admitting Diagnosis: Hayes is a 55-year-old male with primary osteoarthritis of the right hip and is status post right total hip arthroplasty on postoperative day 0. PMHX: Medical History Abdominal pain Fatigue Hyperlipidemia associated with type 2 diabetes mellitus Tobacco abuse Well adult Social History/Home Situation: Lives in a private home with 4 steps to enter and a rail on the right side going up. Will have support at home. Works at [employer] here in town Equipment Owned/DME: [facility] Subjective: Agreeable to PT consult. Reports 1-2/10 pain in the right hip that increased to 2-3/10 with ambulation activity. Denies headache, chest pain, and dizziness throughout session. Objective: General Observation: Mepilex Ag over surgical incision. IV access in right UEs. Bilateral TDS on the legs. Mental Status: Alert and oriented x4 Pain: 1-2/10 at rest and 2-3/10 after ambulation activity in the right hip Vital Signs: Within normal limits as closely monitored by Nurse Cruz before during and after PT session. ROM: Right Lower Extremity: Hip flexion lacks the last 10 degrees due to discomfort. Hip abduction WFL. Knee flexion WFL. Ankle dorsiflexion WFL. Ankle plantarflexion WFL. Left Lower Extremity: Hip flexion WFL. Hip abduction WFL. Knee flexion WFL. Ankle dorsiflexion WFL. Ankle plantarflexion WFL. Strength: Right Lower Extremity: Hip flexors 3-/5. Hip abductors 4/5. Knee flexors 5/5. Knee extensors 4/5. Ankle dorsiflexors 5/5. Ankle plantarflexors 5/5. Left Lower Extremity:Hip flexors 5/5. Hip abductors 5/5. Knee flexors 5/5. Knee extensors 5/5. Ankle dorsiflexors 5/5. Ankle plantarflexors 5/5. Sensation: Intact as to pain and pressure on bilateral lower extremities. Bed Mobility/Transfers: Rolling independent Supine to sit independent Sit to supine independent Sit to stand standby assist Stand to sit standby assist Bed to chair standby assist Chair to bed standby assist Gait: Guided patient through level surface ambulation of 200 feet using front wheeled walker with step to heel?toe gait pattern with pain level in the right hip of food?3/10 pain. Minimal verbal cues provided for walker management and directional change. Balance: Static Sitting: Normal Dynamic Sitting: Normal Static Standing: Fair Dynamic Standing: Fair Special Tests: Mobility Limitations Standardized Measure [facility]-P[facility] 6 clicks Basic Mobility Inpatient Short Form: Raw Score: 23 CMS Score: 11% deficit Informed Consent/Education: Patient instructed in purpose of PT consult and plan of care. Assessment: Hayes will benefit from the use of a front wheeled walker for all mobility ADL performance in order to reduce fall risk and maximize independence at home. He will have a good support as he recovers at home. Patient presents with clinical signs and symptoms consistent with current/admitting diagnoses that have resulted to mobility limitations, gait instability, generalized weakness, and impairment of motor control as demonstrated by the following impairment level findings: 1. Decreased strength to right hip major muscle groups 2. Impaired standing balance 3. Impaired activity tolerance 4. Limitation of joint range of motion in right hip flexion Impairments are contributing to the following functional limitations: 1. Inability to safely ambulate without assistive device 2. Increase completion time for mobility ADL performance 3. Increased fall risk Patient is assessed as a 82226 moderate complexity based on the following: History: 55-year-old male with impairment level findings, functional limitations, and past medical history as indicated above Examination: Demonstrable impairment in strength, balance, and mobility level with underlying impairments and functional limitations as documented above Presentation: Evolving Decision Makin moderate complexity Goals: N/A. PT evaluation and 1 treatment session only for functional mobility training and HEP instruction. Plan of Care/Treatment Plan: N/A. PT evaluation and 1 treatment session only for functional mobility training and HEP instruction. PT INTERVENTION RECEIVED TODAY: Assessment for and fitting of appropriate assistive device. Guided patient through bed mobility, transfers, and mobility ADL performance on level surfaces and stairs Educated and trained patient on HEP performance to maximize post-surgical functional outcomes. DISCHARGE RECOMMENDATIONS: Home when medically cleared by orthopedic surgeon. Patient to facilitate return to independent ADL performance and return to work without restrictions. TREATMENT CODE/TIME: 88007 x 25 minutes, 975 0 x 30 minutes beginning at 15:13 PM. Thank you for the opportunity to participate in the care of this patient. Yumi Caldwell PT, DPT, CLT [facility] [place], [place]
== END 2020-07-27 16:55 | disposition home or self-care (01) ==
PROVIDERS: PCP Family Medicine; Visit Provider Student in an Organized Health Care Education/Training Program
PROC: (CPT 27130; principal; 2020-07-27 11:45)
DX: M16.11 Unilateral primary osteoarthritis, right hip (principal); F17.210 Nicotine dependence, cigarettes, uncomplicated; E78.5 Hyperlipidemia, unspecified; E11.9 Type 2 diabetes mellitus without complications
CPT/HCPCS: 27130; 20985; 97162; 97530; 73501; J0690; J1885; J2001; J2250

== ENCOUNTER 2020-08-11 10:02 | Outpatient (CLI) | payer OTHER, SELFPAY ==
--- NOTE | 2020-08-11 09:30 | DI.RAD_ITS ---
EXAM: XR HIP RT COMPLETE AP PELVIS CLINICAL HISTORY: 1ST POST OP R RUBA. TECHNIQUE: 2D digital imaging was performed. COMPARISON: CR XR PELVIS AP from 07/11/2020 FINDINGS: Satisfactory position alignment of components of the recently placed hip right prosthesis. No eviden ce of fracture or loosening. No radiographic evidence of osteomyelitis. The opposite-left hip appea rs unremarkable. IMPRESSION: DATA REPOSITORY: RADIATION DOSE DELIVERED:
== END 2020-08-11 10:03 | disposition home or self-care (01) ==
LOC: DIORS 10:09
PROVIDERS: PCP Family Medicine; Referring Provider Family Medicine; Visit Provider Physician Assistant
DX: Z96.641 Presence of right artificial hip joint (principal)
CPT/HCPCS: 73502

== ENCOUNTER 2020-09-14 07:13 | Emergency (ER) | payer OTHER, SELFPAY ==
[2020-09-14 07:17] VITALS: BP 141/64; PULSE 74; RESP 18; TEMP 36.6; O2SAT 99
[2020-09-14 07:33] LABS: Bilirubin Negative (Negative); Blood Large (Negative); Clarity Sl Cloudy (Clear); Glucose Negative (Negative); Ketones Negative (Negative); Leukocyte Esterase Negative (Negative); Nitrite Negative (Negative); Specific Gravity 1.025 (1.005-1.025); Urobilinogen 0.2 EU/dL (Up TO 0.2)
[2020-09-14 07:41] LABS: Bacteria Negative HPF (Negative); C & S Indicated? No; Casts Negative LPF (Negative); Crystals Negative HPF (Negative); Epithelial Cells Few HPF (Negative); Mucus Negative (Negative); RBC >50 HPF (0-2); WBC 0-2 HPF (0-5)
[2020-09-14] MEDS: Normal Saline 1,000 ML 100 ML IV (07:57)
[2020-09-14 08:00] LABS: Abs Immature Grans 0.04 10^3/uL (0.0-0.06); Absolute Basophil Count 0.07 10^3/uL (0.0-0.2); Absolute Eosinophil Count 0.22 10^3/uL (0.0-0.7); Absolute Lymphocyte Count 2.63 10^3/uL (1.2-3.4); Absolute Monocyte Count 0.78 10^3/uL (0.1-0.8); Absolute Neutrophil Count 3.31 10^3/uL (1.2-6.7); Eosinophils % 3.1; HCT 42.7 % (40.0-50.0); HGB 14.5 g/dL (13.5-17.5); Immature Grans % 0.6; Lymphocytes % 37.3; MCH 31.2 pg (27.0-33.0); MCV 91.8 fL (80-95); MPV 9.9 fL (8.0-11.0); Monocytes % 11.1; Neutrophils % 46.9; Nucleated RBC 0 %; Platelet Count 274 10^3/uL (130-400); RBC 4.65 10^6/uL (4.36-5.78); RDW 12.5 % (11.8-14.1); RDW-SD 42.2 fL; WBC 7.05 10^3/uL (4.4-10.8)
--- NOTE | 2020-09-14 08:08 | ED.GENADUL_ITS ---
Discharge Plan Disposition Patient Disposition: HOME Condition: Improving Discharge Details Clinical Impression: Mass of urinary bladder, Hematuria Primary Care Provider: Antonino Sharma ED Provider: Luis M Zhu Home Meds and New Rx's Prescriptions: Continued One-A-Day Men's 50 Plus 400-20-370 mcg tablet 1 tab PO DAILY RF: 0 omega 9-btt-ava-fish oil [Fish Oil] 1,000 mg (120 mg-180 mg) capsule 1 cap PO DAILY RF: 0 rosuvastatin 20 mg tablet 20 mg PO DAILY Qty: 90 RF: 3 acetaminophen 500 mg tablet 1,000 mg PO Q8H PRN (Reason: pain) Qty: 90 RF: 3 Discontinued ibuprofen 600 mg tablet 600 mg PO TID PRN (Reason: pain) Qty: 90 RF: 3 Discharge Instructions Instructions: Hematuria (ED) Additional Instructions: Your CT urogram showed a 1.7 cm urinary bladder mass. You have a follow-up appointment with Dr. Huber in specialty clinic on September 15 at 11 AM. Avoid the use of aspirin, ibuprofen, alcohol. Return if you are unable to urinate due to obstruction, or any other acute concerns. May continue small, frequent sips of fluids to maintain hydration. Medical Decision Making 55-year-old male presents from home with painless hematuria that began yesterday evening. Mild sense of suprapubic fullness but no change to urinary stream. He notes some clots in the urine. He has had normal erection and voiding. Otherwise has been well without fever, chills. He had his right hip replaced by Dr. Ernst on July 27 and has been taking Tylenol and ibuprofen daily for that. He has otherwise been well. He presents to the ER stable and in no distress. He has not had any pain. There is no significant findings other than mild suprapubic fullness on exam. Must consider lesion versus painless stone or infection. IV access established, screening urinalysis obtained with laboratory, CT urogram ordered. White blood cell count 7, hematocrit 42, platelets 274. Chemistries are reassuring with a creatinine of 1.0. The CT images reveal a 1.7 cm urinary bladder mass. Case discussed with on-call urology: An outpatient follow-up arranged for September 15 at 11 AM. Patient will avoid aspirin, Advil/ibuprofen, alcohol. He understands indications to seek emergency evaluation Lab Data Lab results reviewed: Yes I reviewed the patient's lab results. Labs: Laboratory Results - last 24 hr 09/14/20 09/14/20 09/14/20 07:25 07:52 07:52 WBC 7.05 RBC 4.65 Hgb 14.5 Hct 42.7 MCV 91.8 MCH 31.2 MCHC 34.0 RDW 12.5 Plt Count 274 MPV 9.9 Immature Gran % 0.6 Neutrophils % 46.9 Lymphocytes % 37.3 Monocytes % 11.1 Eosinophils % 3.1 Basophils % 1.0 Nucleated RBC % 0 Absolute Neutrophils 3.31 Absolute Lymphocytes 2.63 Absolute Monocytes 0.78 Absolute Eosinophils 0.22 Absolute Basophils 0.07 Sodium 142 Potassium 4.6 Chloride 106 Carbon Dioxide 26.7 Anion Gap 9.3 BUN 14 Creatinine 1.0 Estimated GFR/1.73 m2 >= 60.00 Glucose 103 Calcium 9.4 Total Bilirubin 0.7 AST 25 ALT 63 Alkaline Phosphatase 81 Total Protein 7.6 Albumin 4.2 Urine Color Yellow Urine Clarity Sl cloudy Urine pH 6.0 Ur Specific [place] 1.025 Urine Protein Negative Urine Ketones Negative Urine Blood Large H Urine Nitrite Negative Urine Bilirubin Negative Urine Urobilinogen 0.2 Ur Leukocyte Esterase Negative Urine RBC >50 H Urine WBC 0-2 Ur Epithelial Cells Few Urine Crystals Negative Urine Bacteria Negative Urine Casts Negative Urine Mucus Negative Ur Culture Indicated? No Urine Glucose Negative HPI General Mode of arrival: ambulatory . Date/Time Provider Initiated Documentation: 09/14/20 07:34 . Limitations to Documentation: no limitations . Information obtained by: patient . History of Present Illness 55 year old M presents to the emergency department with the chief complaint of Painless hematuria, described as moderate, Quality is described as dull, and is localized to the pelvis. Patient reports no radiation. Patient started experiencing this hour(s) and it has been intermittent. No relieving factors improve symptom(s), No exacerbating factors reported . Patient notes denies fever/chills, loss of appetite, malaise and nausea/vomiting. Patient did receive the following treatments prior to arrival, NSAID Related Data Home Medications Medication Instructions Recorded Confirmed xytowdyeahwo-usf-opcdi acid-vit 1 tab PO DAILY 05/29/19 09/14/20 K-lycop 400 mcg-20 mcg-370 mcg tablet omega 4-zhc-zcr-fish oil 1,000 mg 1 cap PO DAILY 05/29/19 09/14/20 (120 mg-180 mg) capsule acetaminophen 1,000 mg PO Q8H PRN #90 tab 07/27/20 09/14/20 rosuvastatin 20 mg tablet 20 mg PO DAILY #90 tab 08/08/20 09/14/20 Previous Rx's Medication Instructions Recorded acetaminophen 1,000 mg PO Q8H PRN #90 tab 07/27/20 rosuvastatin 20 mg tablet 20 mg PO DAILY #90 tab 08/08/20 Allergies Allergy/AdvReac Type Severity Reaction Status Date / Time No Known Allergies Allergy Verified 09/14/20 07:21 General Stated Complaint: Urinary JONE: 3 Review of Systems Narrative: Uneventful hip surgery for which he has been taking Tylenol and ibuprofen. Surgery was on July 27. No recent illness. 8 systems reviewed and otherwise negative. COUNT INCLUDES THE [facility] Medical History Abdominal pain Fatigue Hyperlipidemia associated with type 2 diabetes mellitus Tobacco abuse Well adult Surgical History History of total right hip replacement (07/27/20) Family History Mother No problems noted. Father , age 74 Hyperlipidemia COPD (chronic obstructive pulmonary disease) Brother Alcohol abuse Substance abuse Son No problems noted. Social History Smoking/Tobacco Use Status: Current every day Tobacco Type: cigarettes Smoking packs per day: 1 Smoking cigarettes per day: 20.0 Tobacco: How many years used: 35 Quit status: considering quitting Smoking risk assessment performed?: Yes Alcohol Intake: former Drug use: Daily Substance use type: marijuana Caregiver/Support person: No Household members: family Housing: apartment Communication Needs: None Do you need help understanding health information?: Never Pets and animals: Yes Pets and animals: dog(s) Sexually active: Yes Do you think of yourself as: straight/heterosexual Current gender identity: male What is your relationship status?: How often do you talk on the phone with friends or family?: three or more times per week How often do you get together with friends or relatives?: once per week How often do you attend baptism or confucianist services?: decline to answer Do you belong to any clubs or organized social groups?: no Panel score (0-1 are the most socially isolated patients): 1 What type of physical activity do you participate in: none Frequency: does not exercise Dai/Catholic: None Special dai needs: No Seatbelt use: always Helmet use: Yes Helmet use: always Drive intox 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 Pleasant, well groomed, interactive. HEAD: Normocephalic, atraumatic ENT: Mucous membranes moist, oropharynx unremarkable, External ear exam unremarkable EYES: PERRL, EOMI NECK: Full ROM, no KEYSHA, no menigismus CHEST/RESP: Nontender, clear to auscultation bilateral, no wheeze/rhonchi/rales CARDIOVASCULAR: RRR, no murmur, rub blair. 2+ Rad pulse bilateral ABDOMEN: Soft, nontender, suprapubic fullness. +Bowel sounds EXT: Full ROM, no edema, no rash Neuro: Grossly normal neurologic exam, conversant, interactive. Psych: Speech fluent, thoughts congruent, affect normal Course Vital Signs Vital signs: Vital Signs Temperature 36.6 C 09/14/20 07:17 Pulse 74 09/14/20 07:17 Respiratory Rate 18 09/14/20 07:17 Blood Pressure 141/64 H 09/14/20 07:17 Pulse Oximetry 99 09/14/20 07:17 Temperature 36.6 C 09/14/20 07:17 Temperature Source Skin 09/14/20 07:17 Pulse 74 09/14/20 07:17 Respiratory Rate 18 09/14/20 07:17 Respiratory Effort Non-Labored 09/14/20 07:20 Blood Pressure 141/64 H 09/14/20 07:17 Blood Pressure Position Sitting 09/14/20 07:17 Pulse Oximetry 99 09/14/20 07:17 Oxygen Delivery Method Room Air 09/14/20 07:17 Oxygen Flow Rate 0 09/14/20 07:17 Pain Level 0 09/14/20 07:25 Lab/Test Results Lab/Test Results: Laboratory Tests Range/Units 09/14/20 09/14/20 07:25 07:52 WBC (4.4-10.8) 10^3/uL 7.05 RBC (4.36-5.78) 10^6/uL 4.65 Hgb (13.5-17.5) g/dL 14.5 Hct (40.0-50.0) % 42.7 MCV (80-95) fL 91.8 MCH (27.0-33.0) pg 31.2 MCHC (32.0-36.0) % 34.0 RDW (11.8-14.1) % 12.5 Plt Count (130-400) 10^3/uL 274 MPV (8.0-11.0) fL 9.9 Immature Gran % 0.6 Neutrophils % 46.9 Lymphocytes % 37.3 Monocytes % 11.1 Eosinophils % 3.1 Basophils % 1.0 Nucleated RBC % % 0 Absolute Neutrophils (1.2-6.7) 10^3/uL 3.31 Absolute Lymphocytes (1.2-3.4) 10^3/uL 2.63 Absolute Monocytes (0.1-0.8) 10^3/uL 0.78 Absolute Eosinophils (0.0-0.7) 10^3/uL 0.22 Absolute Basophils (0.0-0.2) 10^3/uL 0.07 Urine Color (Yellow) Yellow Urine Clarity (Clear) Sl cloudy Urine pH (5-8) 6.0 Ur Specific [place] (1.005-1.025) 1.025 Urine Protein (Negative) mg/dL Negative Urine Ketones (Negative) mg/dL Negative Urine Blood (Negative) Large H Urine Nitrite (Negative) Negative Urine Bilirubin (Negative) Negative Urine Urobilinogen (Up TO 0.2) EU/dL 0.2 Ur Leukocyte Esterase (Negative) Negative Urine RBC (0-2) HPF >50 H Urine WBC (0-5) HPF 0-2 Ur Epithelial Cells (Negative) HPF Few Urine Crystals (Negative) HPF Negative Urine Bacteria (Negative) HPF Negative Urine Casts (Negative) LPF Negative Urine Mucus (Negative) Negative Ur Culture Indicated? No Urine Glucose (Negative) mg/dL Negative
[2020-09-14 08:16] LABS: ALT 63 U/L (16-63); AST 25 U/L (15-37); Albumin 4.2 g/dL (3.4-5.0); Alkaline Phosphatase 81 U/L (46-116); Anion Gap 9.3 mmol/L (3-11); BUN 14 mg/dL (7-18); Bilirubin, Total 0.7 mg/dL (0.2-1.0); CO2 26.7 mmol/L (21.0-32.0); Calcium 9.4 mg/dL (8.5-10.1); Chloride 106 mmol/L (98-107); Glucose 103 mg/dL (74-106); Potassium 4.6 mmol/L (3.5-5.1); Sodium 142 mmol/L (136-145); Total Protein 7.6 g/dL (6.4-8.2)
[2020-09-14] MEDS: Normal Saline - Diluent 50 ML VIAL IV (08:32)
[2020-09-14] MEDS: Omnipaque 350 MG/ML 50 ML BTL IJ ×2 (08:42→08:49)
--- NOTE | 2020-09-14 08:49 | DI.CT_ITS ---
Exam(s) CT ABDOMEN PELVIS WO/W EXAM: CT ABDOMEN PELVIS WO/W CLINICAL HISTORY: Painless hematuria, CT Urogram TECHNIQUE: Imaging Protocol: Axial computed tomography images with coronal and sagittal reformatted images were created and reviewed CONTRAST MATERIAL: Intravenous: Omnipaque 350 Contrast volume:100 mL Oral: No COMPARISON: No exams were available for comparison FINDINGS: ABDOMEN: Lung Bases: Normal where visualized. Liver: Normal density. No measurable mass. Portal, Superior Mesenteric, and Splenic Veins: Unremarkable. Gallbladder and Biliary Tract: No radiodense calculus or dilation. Pancreas: Normal density, no abnormal calcifications or inflammatory process. Spleen: Normal. Adrenals: No masses seen. Kidneys: Normal size, contour and axis. No radiodense stones or obstructive uropathy. No masses seen. Abdominal Aorta: Abdominal portion non-dilated. Atherosclerosis. Bowel: No obstruction or bowel wall thickening. Appendix is unremarkable. Peritoneal Cavity: No ascites, collection or mesenteric inflammatory response. No free air. Lymph Nodes: Within normal limits. Bones: There are degenerative changes seen in the lumbar spine. No suspicious lytic or sclerotic les ions are present. The patient has a right total hip replacement. Soft Tissues: Unremarkable. PELVIS: Bladder: There is a 1.7 x 1.2 cm soft tissue mass in the right lateral aspect of the urinary bladder. Reproductive Organs: Unremarkable as visualized. Lymph Nodes: Within normal limits. Bones: Within normal limits for the patient's age. IMPRESSION: 1. 1.7 x 1.2 cm mass in the urinary bladder. This may represent a bladder carcinoma. Urology consul t is recommended. 2. No evidence of nephrolithiasis or hydronephrosis. 3. Results of this exam have been verbally communicated with provider. RADIATION DOSE DELIVERED: Total DLP Total DLP DATA REPOSITORY: All CT scans at this facility are submitted to the National Radiology Data Registry (NRDR) Dose Index Registry (DIR) with the [employer] (ACR). RADIATION OPTIMIZATION: All CT scans at this facility use at least one of these dose optimization te chniques: automated exposure control; mA and/or kV adjustment per patient size (includes targeted exa ms where dose is matched to clinical indication); or iterative reconstruction.
[2020-09-14 09:49] VITALS: BP 107/46; PULSE 55; RESP 16; TEMP 36.5; O2SAT 99
--- NOTE | 2020-09-14 10:01 | NUR.NOTE ---
Nursing Note: Appt. September 15 @ 11am with Dr. Huber in [facility]. Shawna Mart
[2020-09-14 10:10] VITALS: BP 116/76; PULSE 70; RESP 16; TEMP 36.5; O2SAT 98
== END 2020-09-14 10:13 | disposition home or self-care (01) ==
PROVIDERS: Emergency Provider Emergency Medicine; PCP Family Medicine
DX: N32.89 Other specified disorders of bladder (principal); N31.9 Neuromuscular dysfunction of bladder, unspecified
CPT/HCPCS: 36415; 80053; 99284; 74178; 81003; 81015; 85025; Q9967

== ENCOUNTER 2020-09-16 02:29 | Outpatient (CLI) | payer OTHER, SELFPAY ==
[2020-09-16 10:38] LABS: Source Nasal/Nares
[2020-09-16 15:38] LABS: COVID-19 PCR Negative (Negative)
== END 2020-09-16 02:30 | disposition home or self-care (01) ==
LOC: LBO 02:29
PROVIDERS: PCP Family Medicine; Visit Provider Urology
DX: Z20.822 Contact with and (suspected) exposure to COVID-19 (principal)
CPT/HCPCS: 87635

== ENCOUNTER 2020-09-19 07:02 | Day surgery (SDC) | payer OTHER, SELFPAY ==
[2020-09-19 07:15] VITALS: BP 115/54; PULSE 62; RESP 16; TEMP 36.3; O2SAT 99
[2020-09-19] MEDS: Lactated Ringers 1,000 ML 80 ML IV (07:30)
[2020-09-19] MEDS: GENTAMICIN 120 MG in Normal Saline 100 ML 206 MG IVPB (07:37)
--- NOTE | 2020-09-19 08:06 | W.ANESPRE ---
General Info Date of Service Date Performed: 09/19/20 Height: 5 ft 7 in Weight: 83.3 kg Body Mass Index (BMI): 28.8 Surgical Procedure: Operation Date: 09/19/20 08:40 Proposed Procedures Side Surgeon p Transurethral Resection Bladder Tumor Albaro Huber MD Meds Allergies and Home Medications Allergies Allergy/AdvReac Type Severity Reaction Status Date / Time No Known Allergies Allergy Verified 09/19/20 07:17 Home Medication Medication Instructions Recorded iypaujdrwqov-yis-jjnok acid-vit 1 tab PO DAILY 05/29/19 K-lycop 400 mcg-20 mcg-370 mcg tablet omega 0-jpg-giq-fish oil 1,000 mg 1 cap PO DAILY 05/29/19 (120 mg-180 mg) capsule acetaminophen 1,000 mg PO Q8H PRN #90 tab 07/27/20 rosuvastatin 20 mg tablet 20 mg PO DAILY #90 tab 08/08/20 Current Visit Medications: Current Medications Generic Name Dose Route Start Last Admin Trade Name Freq PRN Reason Stop Dose Admin Ringer's Solution 1,000 mls @ 80 mls/hr 09/19/20 06:00 IV 10/16/20 23:59 INFUSION BETH Cefazolin Sodium/Dextrose 1 gm in 50 mls @ 100 mls/hr 09/19/20 06:00 Ancef Duplex IVPB 09/19/20 16:00 PREOP BETH Gentamicin Sulfate 120 mg/ 103 mls @ 206 mls/hr 09/19/20 06:00 09/19/20 07:37 Sodium Chloride IVPB 09/19/20 16:00 206 mls/hr PREOP BETH Administration IV Miscellaneous Supplies 1 each 09/19/20 06:00 Iv Access IV 10/16/20 23:59 DIRECTED BETH Sodium Chloride 0 ml 09/19/20 06:00 Normal Saline Flush 10 Ml Syr IV 10/16/20 23:59 PRN PRN Sodium Chloride 0 ml 09/19/20 06:00 Normal Saline 10 Ml Vial IJ 10/16/20 23:59 DIRECTED PRN Sterile Water 0 ml 09/19/20 06:00 Water,Injection,Sterile 10 Ml Vial IJ 10/16/20 23:59 DIRECTED PRN PFSH Active Problems Active Problems: Problem Status Onset Code Mass of urinary bladder N32.89 Hematuria R31.9 History of total right hip replacement 07/27/20 Z96.641 Tobacco abuse Z72.0 Medial knee pain M25.569 Osteoarthritis of right hip M16.11 Well adult Hyperlipidemia associated with type 2 diabetes mellitus E11.69, E78.5 Fatigue R53.83 Abdominal pain R10.9 Medical History Medical History Abdominal pain Fatigue Hyperlipidemia associated with type 2 diabetes mellitus Tobacco abuse Well adult Surgical History Surgical History History of total right hip replacement (07/27/20) Tobacco Smoking/Tobacco Use Status: Current every day Tobacco Type: cigarettes Smoking packs per day: 1 Smoking cigarettes per day: 20.0 Tobacco: How many years used: 35 Passive smoking exposure: Yes Quit Status: considering quitting Alcohol Alcohol Intake: former Substance Use Substance use: Daily Substance use type: marijuana Vital Signs and Lab Results Vital Signs Most Recent Vital Signs in EMR: Most Recent Vital Signs Temp Pulse Resp BP Pulse Ox 36.3 C L 62 16 115/54 L 99 09/19/20 07:15 09/19/20 07:15 09/19/20 07:15 09/19/20 07:15 09/19/20 07:15 Lab Results Blood Type / Crossmatch: Patient ABO/Rh A Positive 07/25/20 10:25 07/25/20 Antibody Screen Negative 07/25/20 10:25 07/25/20 Complete Blood Count: White Blood Count 7.05 10^3/uL (4.4-10.8) 09/14/20 07:52 09/14/20 Red Blood Count 4.65 10^6/uL (4.36-5.78) 09/14/20 07:52 09/14/20 Hemoglobin 14.5 g/dL (13.5-17.5) 09/14/20 07:52 09/14/20 Hematocrit 42.7 % (40.0-50.0) 09/14/20 07:52 09/14/20 Platelet Count 274 10^3/uL (130-400) 09/14/20 07:52 09/14/20 Complete Metabolic Panel: Sodium Level 142 mmol/L (136-145) 09/14/20 07:52 09/14/20 Potassium Level 4.6 mmol/L (3.5-5.1) 09/14/20 07:52 09/14/20 Chloride Level 106 mmol/L (98-107) 09/14/20 07:52 09/14/20 Carbon Dioxide Level 26.7 mmol/L (21.0-32.0) 09/14/20 07:52 09/14/20 Blood Urea Nitrogen 14 mg/dL (7-18) 09/14/20 07:52 09/14/20 Creatinine 1.0 mg/dL (0.70-1.30) 09/14/20 07:52 09/14/20 Magnesium Level 1.7 mg/dL (1.8-2.4) L 08/15/19 18:52 08/15/19 Calcium Level 9.4 mg/dL (8.5-10.1) 09/14/20 07:52 09/14/20 Albumin 4.2 g/dL (3.4-5.0) 09/14/20 07:52 09/14/20 Glucose Level 103 mg/dL (74-106) 09/14/20 07:52 09/14/20 Hemoglobin A1c 5.7 % (<5.7) 07/25/20 10:25 07/25/20 Liver Function Panel: Alanine Aminotransferase (ALT/SGPT) 63 U/L (16-63) 09/14/20 07:52 09/14/20 Aspartate Amino Transf (AST/SGOT) 25 U/L (15-37) 09/14/20 07:52 09/14/20 Coagulation Panel: No Data to Display Cardiac Panel: Troponin I < 0.05 ng/Ml (<0.06) 08/15/19 18:59 08/15/19 Arterial Blood Gas: No Data to Display Venous Blood Gas: No Data to Display Pancreas Panel: No Data to Display Thyroid Panel: Thyroid Stimulating Hormone (TSH) 0.98 uIU/mL (0.36-3.74) 08/15/19 18:52 08/15/19 Infectious Disease: Coronavirus (COVID-19)(PCR) Negative (Negative) 09/16/20 09:27 09/16/20 Coronavirus 2019 Source Nasal/nares 09/16/20 09:27 09/16/20 HIV (1&2) Ag and Ab, 4th Generation Negative (Negative) 06/05/19 08:26 06/05/19 Blood Cultures: No Data to Display Toxicology Panel: No Data to Display Anesthesia Assessment and Plan Anesthesia History Personal History: No History of Anesthesia Complications Family History: No Family History of Anesthesia Complications Exercise Tolerance Exercise Tolerance: Metabolic Equivalents>4 Pertinent Negatives Pertinent Negatives: No Symptoms of GERD Cardiac & Pulmonary Exam Cardiac Exam: Normal S1/S2 Heart Sounds Pulmonary Exam: Clear Bilateral Breath Sounds Airway Exam Known Difficult Airway: No Mallampati Class: 2 Mouth Opening: Normal (> 3cm) Thyromental Distance: Greater than 3 cm Neck Range of Motion: Full ROM Neck Circumference: Normal Teeth Condition: Loose or Chipped ASA Classification ASA Score: ASA 2 Emergency Case?: No NPO Status NPO Status: NPO Clears >2 hours, Solids >8 hours Anesthesia Plan Anesthesia Technique: MAC Anesthesia Airway Planned: Natural Airway Monitors Used: Standard Monitors
[2020-09-19 08:12] VITALS: BMI 28.8
--- NOTE | 2020-09-19 08:46 | HPE_ITS ---
Date of service: 09/19/20 Time of Service: 08:47 Assessment and Plan Assessment and plan (1) Mass of urinary bladder: Status: Acute Assessment and plan: For cystoscopy with TURBT (2) Hematuria: Status: Acute History of Present Illness Narrative: This is a 55-year-old gentleman who presents with a new onset of gross painless hematuria 2 days ago. The blood was present almost every time he voided for the first 24 hours. He then presented to the emergency room where he was evaluated with a CT urogram. He was referred to us after his ER visit. After the initial 24 hours, his urine cleared. He then had one episode of gross hematuria with clotsthis morning. He did not go into retention. He now has some mild left lower quadrant discomfort but no pain with voiding. He is a smoker and has been for over 30 years. His current usage is about 1/2 pack of cigarettes per day. He is not on any type of blood thinners but he does take fish oil. He has no prior history of urologic surgeries. He has no history of kidney stones or urinary tract infections. He has had total hip replacement surgery about 7 weeks ago. Review of Systems Narrative: No fevers or chills No vision change or dysphasia No diabetes or thyroid dysfunction No shortness of breath, cough or hemoptysis No chest pain or palpitations No nausea, vomiting, hepatitis, ulcers, jaundice, diarrhea or constipation No seizures, strokes or peripheral neuropathy No bleeding disorders or anemia s/p right hip replacement @ 7 weeks ago. No gout PFSH Medical History Abdominal pain Fatigue Hyperlipidemia associated with type 2 diabetes mellitus Tobacco abuse Well adult Surgical History History of total right hip replacement (07/27/20) Family History Mother No problems noted. Father , age 74 Hyperlipidemia COPD (chronic obstructive pulmonary disease) Brother Alcohol abuse Substance abuse Son No problems noted. Social History Smoking/Tobacco Use Status: Current every day Tobacco Type: cigarettes Smoking packs per day: 1 Smoking cigarettes per day: 20.0 Tobacco: How many years used: 35 Quit status: considering quitting Smoking risk assessment performed?: Yes Alcohol Intake: former Drug use: Daily Substance use type: marijuana Caregiver/Support person: No Household members: family Housing: apartment Communication Needs: None Do you need help understanding health information?: Never Pets and animals: Yes Pets and animals: dog(s) Sexually active: Yes Do you think of yourself as: straight/heterosexual Current gender identity: male What is your relationship status?: How often do you talk on the phone with friends or family?: three or more times per week How often do you get together with friends or relatives?: once per week How often do you attend jehovah's witness or oriental orthodox services?: decline to answer Do you belong to any clubs or organized social groups?: no Panel score (0-1 are the most socially isolated patients): 1 What type of physical activity do you participate in: none Frequency: does not exercise Dai/Gnosticism: None Special dai needs: No Seatbelt use: always Helmet use: Yes Helmet use: always Drive intox or ride w/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 Do you feel safe at home: Yes Additional Social history: unable to assess [facility] Kamelio Allergies and Home Medications Allergies Allergy/AdvReac Type Severity Reaction Status Date / Time No Known Allergies Allergy Verified 09/19/20 07:17 Home Medications Medication Instructions Recorded Confirmed Type pgdgtnefxjum-pnc-zpwcf acid-vit 1 tab PO DAILY 05/29/19 09/19/20 History K-lycop 400 mcg-20 mcg-370 mcg tablet omega 0-mfe-ovn-fish oil 1,000 mg 1 cap PO DAILY 05/29/19 09/19/20 History (120 mg-180 mg) capsule acetaminophen 1,000 mg PO Q8H PRN #90 tab 07/27/20 09/19/20 Rx rosuvastatin 20 mg tablet 20 mg PO DAILY #90 tab 08/08/20 09/19/20 Rx Exam Const General: cooperative, comfortable and well developed Neck Neck: supple Resp Effort & Inspection: normal respiratory effort Auscultation: clear to auscultation bilaterally Cardio Rate: regular rate Rhythm: regular rhythm GI Palpation: soft and no masses Neuro General: patient alert, patient awake and patient oriented x3 Results Last Vital Signs Temp 36.3 C L 09/19/20 07:15 Pulse 62 09/19/20 07:15 Resp 16 09/19/20 07:15 BP 115/54 L 09/19/20 07:15 Pulse Ox 99 09/19/20 07:15 COVID-19 Screening Have you, or household traveled for leisure in last 14 days?: No Had IN PERSON contact w/suspected or confirmed C-19 person: No
[2020-09-19] MEDS: ceFAZolin 1 GM/50 ML BAG IVPB (09:10)
[2020-09-19] MEDS: Lidocaine 2% Jelly 6 ML SYR (09:20)
--- NOTE | 2020-09-19 09:35 | BLADDER_PTH ---
PATIENT: Hayes Grijalva LOC: [facility] U#:[id number] AGE/SX: 55/M ROOM: RE09/19/[address]: Albaro Huber MD : 1965 BED: DIS: 09/19/2020 SPEC #: [id number] RECD: 09/19/20 12:31 STATUS: DIDI REMich #: [id number] TAE: 09/19/20 09:[address]: Albaro Huber DEPT: Surgical Specimen RECD BY: Alessia Newton ENTERED: 09/19/20 12:31 SP TYPE: Bladder OTHR DR: Antonino Sharma MD Tissues: 1 - BLADDER BIOPSY Procedures: GROSS AND MICRO LEVEL 4 Comments: [id number]
--- NOTE | 2020-09-19 09:42 | W.PM.DSUDISC ---
Discharge Plan Disposition Patient Disposition: HOME Condition: Stable Discharge Details Reason For Visit: bladder tumor Attending Provider: Albaro Huber Primary Care Provider: Antonino Sharma Home Meds and New Rx's Prescriptions: No Action One-A-Day Men's 50 Plus 400-20-370 mcg tablet 1 tab PO DAILY RF: 0 omega 2-otq-nmu-fish oil [Fish Oil] 1,000 mg (120 mg-180 mg) capsule 1 cap PO DAILY RF: 0 rosuvastatin 20 mg tablet 20 mg PO DAILY Qty: 90 RF: 3 acetaminophen 500 mg tablet 1,000 mg PO Q8H PRN (Reason: pain) Qty: 90 RF: 3 Discharge Instructions Additional Instructions: Garcia to leg bag Followup 2 to 3 days for catheter removal (nurse visit) Followup appt 2 weeks for pathology results Activity:: no lifting over 10 pounds for 2 to 3 days Shower/Bathe:: 24 hours Diet:: As Tolerated Discharge Orders Discharge Orders: Discharge Order (Routine); Ordered 09/19/20 Ordered By: Albaro Huber DS: Diagnosis Discharge Diagnosis (1) Mass of urinary bladder: Status: Acute (2) Hematuria: Status: Acute
--- NOTE | 2020-09-19 09:45 | ROE_ITS ---
Date of service: 09/19/20 Time of Service: 09:46 Operative Note Operative Note DATE OF PROCEDURE: 09/19/20 PRE-OP DIAGNOSIS: Bladder mass POST-OP DIAGNOSIS: same PROCEDURE: cystoscopy with transurethral resection of bladder tumor SURGEON: Albaro Huber ANESTHESIA TYPE: General:No Airway Refer to Anesthesia Record ESTIMATED BLOOD LOSS: 10 PATHOLOGY: other (bladder tumor) COMPLICATIONS: None Patient was transported to: same day Patient's condition: stable Implants: 18 Norwegian Garcia catheter to leg bag Indications: This is a 55 gentleman who was identified as having gross painless hematuria. He was evaluated with a CT urogram which demonstrated a filling defect in the bladder. He presents for cystoscopy with possible transurethral resection of any visible bladder tumor Findings: 2 cm papillary lesion behind right ureteral orifice Procedure Description: Patient was brought to the operating room on 09/19/2020. He was given preoperative broad-spectrum antibiotics as his hip replacement was done about 8 weeks ago. After successful induction of general anesthesia, he was placed in the dorsal lithotomy position. His genitalia was prepped and draped. 2% Xylocaine jelly was instilled into the urethra. A 26 Norwegian resectoscope sheath was passed through the urethra into the bladder. We used a visual obturator and a 30 degree lens to inspect the urethral and bladder mucosa was. The pendulous, bulbous and membranous urethra was all appeared normal with no strictures. The prostatic urethra showed slight lateral lobe enlargement but no significant median lobe. The bladder neck was entered and the bladder mucosa was inspected. Both ureteral orifice ease appeared normal in configuration and location. No blood was seen coming from either side. Just behind the right ureteral orifice, there was a 2 cm papillary lesion consistent with a noninvasive bladder cancer. The remainder of the bladder showed no mucosal abnormalities. We then used an [employer] resectoscope and bipolar cautery to resect the visible lesion and some of the underlying muscle. The base of the resection site was cauterized using coagulation current. All resected tissue was evacuated and sent to pathology for permanent section. Because of the depth of the resection, we elected not to instill chemotherapy and to place a Garcia catheter. We chose an 18 Norwegian catheter and passed it through the urethra into the bladder. The catheter balloon was inflated with 10 cc of sterile water. The catheter was hooked to gravity drainage. The patient tolerated this procedure well with no complications.
--- NOTE | 2020-09-19 09:45 | W.ANESPOSTOP ---
Postoperative Evaluation Date, Time and Location Date Performed: 09/19/20 Time Performed: 09:46 Patient Location: Day Surgery Unit Vital Signs Most Recent Imported Vital Signs: Most Recent Vital Signs Temp Pulse Resp BP Pulse Ox 36.3 C L 62 16 115/54 L 99 09/19/20 07:15 09/19/20 07:15 09/19/20 07:15 09/19/20 07:15 09/19/20 07:15 Most Recent Manually Entered Vital Signs: Adult Blood Pressure: 95/55 Heart Rate: 57 Respirations: 16 Oxygen Saturation (%): 95 Temperature (C): 36.1 C Pain Score (0-10 Scale): 0 Assessment Mental Status: Arousable with meaningful communication Airway and Respiratory Function: Patent airway with normal (patient baseline) respiratory exam Cardiovascular Function: Hemodynamically Stable Hydration Status: Adequately Hydrated Nausea & Vomiting: No Nausea or Vomiting Pain: Pt. Denies Any Pain Peripheral Nerve Block: Patient did not receive a nerve block
[2020-09-19 09:46] VITALS: BP 95/55; PULSE 58; RESP 16; TEMP 36.1; O2SAT 95
[2020-09-19 09:47] VITALS: BP 95/55; PULSE 57; RESP 16; TEMPC 36.1; O2SAT 95
[2020-09-19] MEDS: Phenazopyridine 200 MG TAB PO (10:03)
[2020-09-19 10:10] VITALS: BP 95/55; PULSE 52; RESP 18; TEMP 36.2; O2SAT 97
[2020-09-19 10:40] VITALS: BP 110/56; PULSE 66; RESP 18; TEMP 36.2; O2SAT 97
== END 2020-09-19 11:15 | disposition home or self-care (01) ==
PROVIDERS: PCP Family Medicine; Visit Provider Urology
PROC: 0TBB8ZZ Excision of Bladder, Via Natural or Artificial Opening Endoscopic (ICD-10-PCS; CPT 52234; principal; 2020-09-19 08:30)
DX: N32.89 Other specified disorders of bladder (principal); R31.9 Hematuria, unspecified; F17.210 Nicotine dependence, cigarettes, uncomplicated; E11.9 Type 2 diabetes mellitus without complications; E78.5 Hyperlipidemia, unspecified
CPT/HCPCS: 52234; 88305; J0690; J1580; J2001; J2405

== ENCOUNTER 2021-01-03 14:54 | Emergency (ER) | payer OTHER, SELFPAY ==
[2021-01-03] VITALS (32 sets, daily range): BP systolic 106–134; BP diastolic 48–80; PULSE 49–91; RESP 10–19; O2SAT 95–100
--- NOTE | 2021-01-03 14:45 | RT.EKG_ITS ---
APPROVED REPORT Exam: Resting ECG Reason for Exam: chest pain Patient Location: E HR:57 bpm ECG Measurements Heart Rate 57 AXIS NM 156 P 39 QRSd 100 QRS 64 QT 398 T 30 QTc 387 Conclusion Sinus bradycardia No ST elevation
--- NOTE | 2021-01-03 15:00 | DI.RAD_ITS ---
Exam(s) XR CHEST 2V PA LATERAL EXAM: XR CHEST 2V PA LATERAL CLINICAL HISTORY: L chest pain. TECHNIQUE: 2D digital imaging was performed. COMPARISON: CR,XR XR CHEST 2V PA LATERAL from 08/15/2019 FINDINGS: Heart size is normal. The mediastinum is not widened. Lungs are clear. No infiltrates nor pleural effusions. IMPRESSION: No acute pulmonary findings.No significant change compared to 08/15/2019. DATA REPOSITORY: RADIATION DOSE DELIVERED:
--- NOTE | 2021-01-03 15:16 | ED.GENADUL_ITS ---
Discharge Plan Disposition Patient Disposition: HOME Condition: Improving Discharge Details Clinical Impression: Chest wall pain Primary Care Provider: Antonino Sharma ED Provider: Luis M Zhu Home Meds and New Rx's Prescriptions: Continued One-A-Day Men's 50 Plus 400-20-370 mcg tablet 1 tab PO DAILY RF: 0 omega 1-zpp-mpa-fish oil [Fish Oil] 1,000 mg (120 mg-180 mg) capsule 1 cap PO DAILY RF: 0 bupropion HCl [Wellbutrin SR] 150 mg tablet sustained-release 12 hr 150 mg PO BID Qty: 60 RF: 5 nicotine [Nicoderm CQ] 14 mg/24 hr patch 24 hour 1 patch transdermal DAILY Qty: 14 RF: 1 nicotine [Nicoderm CQ] 7 mg/24 hr patch 24 hour 1 patch transdermal Q24H Qty: 14 RF: 1 rosuvastatin 20 mg tablet 20 mg PO DAILY Qty: 90 RF: 3 omeprazole 40 mg capsule,delayed release(DR/EC) 40 mg PO DAILY Qty: 30 RF: 2 acetaminophen 500 mg tablet 1,000 mg PO Q8H PRN (Reason: pain) Qty: 90 RF: 3 Discharge Instructions Instructions: Chest Wall Pain (ED) Additional Instructions: Your work-up in the emergency department today included chest x-ray, cardiac monitoring, EKG, laboratories with troponin. Home to rest tonight. Small, frequent sips of fluids to maintain hydration. May continue Tylenol and/or ibuprofen as needed for pain. Return to the emergency department for worsening discomfort, the development of shortness of breath, or any other acute concerns. Medical Decision Making This is a 55-year-old male smoker with a history of hypercholesterolemia. States he awoke normally and then was sitting on his couch approximate 11 AM when he developed left anterior chest aching discomfort that is reproducible and worsened with movement. Denies new injury or exercise. No rash or recent illness. He arrives here with normal vital signs, reproducible chest wall pain. Given the patient's cardiac risk factors, IV access was established, he is placed on a rn cardiac cath, screening EKG obtained and he is referred for laboratory testing and chest x-ray. Chest x-ray, no acute findings. Laboratories no and unremarkable CBC, reassuring chemistries, normal troponin and LFTs. Patient observed on a rn cardiac cath and repeat troponin & EKG obtained. Repeat troponin is negative. Patient with no ongoing significant discomfort. Given that it is reproducible this may simply be chest wall strain. Discussed with him indications to seek reevaluation as well as home management. He is stable and appropriate for disc harge at this time. HPI General Mode of arrival: ambulatory . Date/Time Provider Initiated Documentation: 01/03/21 15:06 . Limitations to Documentation: no limitations . Information obtained by: patient . History of Present Illness 55 year old M presents to the emergency department with the chief complaint of Left chest pain, described as moderate and similar to prior episodes, Quality is described as dull and constant, and is localized to the chest and left. Patient reports no radiation. Patient started experiencing this hour(s) and it has been constant. Rest improves symptom(s), Movement worsens symptoms . Patient notes denies fever/chills, rash, shortness of breath and syncope. Patient did receive the following treatments prior to arrival, NSAID Related Data Home Medications Medication Instructions Recorded Confirmed maebuljcefxe-dqc-bkxnm acid-vit 1 tab PO DAILY 05/29/19 12/02/20 K-lycop 400 mcg-20 mcg-370 mcg tablet omega 7-zxk-mrh-fish oil 1,000 mg 1 cap PO DAILY 05/29/19 12/02/20 (120 mg-180 mg) capsule acetaminophen 1,000 mg PO Q8H PRN #90 tab 07/27/20 12/02/20 rosuvastatin 20 mg tablet 20 mg PO DAILY #90 tab 08/08/20 12/02/20 bupropion HCl 150 mg tablet,12 hr 150 mg PO BID #60 tab 10/21/20 12/02/20 sustained-release nicotine 14 mg/24 hr daily 1 patch TRANSDERMAL DAILY #14 ea 10/21/20 12/02/20 transdermal patch nicotine 7 mg/24 hr daily 1 patch TRANSDERMAL Q24H #14 ea 10/21/20 12/02/20 transdermal patch omeprazole 40 mg capsule,delayed 40 mg PO DAILY #30 cap 11/09/20 12/02/20 release Previous Rx's Medication Instructions Recorded acetaminophen 1,000 mg PO Q8H PRN #90 tab 07/27/20 rosuvastatin 20 mg tablet 20 mg PO DAILY #90 tab 08/08/20 bupropion HCl 150 mg tablet,12 hr 150 mg PO BID #60 tab 10/21/20 sustained-release nicotine 14 mg/24 hr daily 1 patch TRANSDERMAL DAILY #14 ea 10/21/20 transdermal patch nicotine 7 mg/24 hr daily 1 patch TRANSDERMAL Q24H #14 ea 10/21/20 transdermal patch omeprazole 40 mg capsule,delayed 40 mg PO DAILY #30 cap 11/09/20 release Allergies Allergy/AdvReac Type Severity Reaction Status Date / Time No Known Allergies Allergy Verified 01/03/21 15:05 General Stated Complaint: Chest Pain JONE: 3 Review of Systems Narrative: No recent illness. Immunized against COVID-19, denies rash or injury. 8 systems reviewed and otherwise negative. [facility] Medical History Abdominal pain Fatigue Hyperlipidemia associated with type 2 diabetes mellitus Tobacco abuse Urothelial carcinoma of bladder Well adult Surgical History History of total right hip replacement (07/27/20) Family History Mother No problems noted. Father , age 74 Hyperlipidemia COPD (chronic obstructive pulmonary disease) Brother Alcohol abuse Substance abuse Son No problems noted. Social History Smoking/Tobacco Use Status: Current every day Tobacco Type: cigarettes Smoking packs per day: 1 Smoking cigarettes per day: 20.0 Tobacco: How many years used: 35 Quit status: considering quitting Second Hand Exposure: Yes Smoking risk assessment performed?: Yes Alcohol Intake: current Alcohol Intake frequency: a few times a month Alcohol type: beer Drug use: Daily Substance use type: marijuana Household members: significant other and family Housing: house Communication Needs: None Do you need help understanding health information?: Never Pets and animals: Yes Pets and animals: dog(s) Sexually active: Yes Do you think of yourself as: straight/heterosexual Current gender identity: male What is your relationship status?: How often do you talk on the phone with friends or family?: three or more times per week How often do you get together with friends or relatives?: three or more times per week How often do you attend cheondoism or tenriism services?: decline to answer Do you belong to any clubs or organized social groups?: no Panel score (0-1 are the most socially isolated patients): 1 Dai/Restoration: None Special dai needs: No Seatbelt use: always Drive intox or ride w/intox port cdl a driver: No Do you feel safe at home: Yes Additional Social history: unable to assess privatley Exam Narrative Exam Narrative: GEN: awake, alert, oriented 3. Pleasant, well groomed, interactive. HEAD: Normocephalic, atraumatic ENT: Mucous membranes moist, oropharynx unremarkable, External ear exam unremarkable EYES: PERRL, EOMI NECK: Full ROM, no KEYSHA, no menigismus CHEST/RESP: Tender left anterior and posterior thorax, no crepitus, clear to auscultation bilateral, no wheeze/rhonchi/rales CARDIOVASCULAR: RRR, no murmur, rub blair. 2+ Rad pulse bilateral ABDOMEN: Soft, nontender, no mass. +Bowel sounds EXT: Full ROM, no edema, no rash Neuro: Grossly normal neurologic exam, conversant, interactive. Psych: Speech fluent, thoughts congruent, affect normal Course Vital Signs Vital signs: Vital Signs Pulse 65 01/03/21 15:00 Respiratory Rate 16 01/03/21 15:00 Blood Pressure 125/48 L 01/03/21 15:00 Pulse Oximetry 98 01/03/21 15:00 Pulse 65 01/03/21 15:00 Respiratory Rate 16 01/03/21 15:00 Respiratory Effort 01/03/21 15:05 Blood Pressure 125/48 L 01/03/21 15:00 Blood Pressure Position Supine 01/03/21 15:00 Pulse Oximetry 98 01/03/21 15:00 Oxygen Delivery Method Room Air 01/03/21 15:00 Oxygen Flow Rate 0 01/03/21 15:00 Pain Level 5 01/03/21 15:00
[2021-01-03 15:33] LABS: Abs Immature Grans 0.02 10^3/uL (0.0-0.06); Absolute Basophil Count 0.05 10^3/uL (0.0-0.2); Absolute Lymphocyte Count 2.29 10^3/uL (1.2-3.4); Absolute Neutrophil Count 2.21 10^3/uL (1.2-6.7); Basophils % 0.9; Eosinophils % 3.7; HGB 14.2 g/dL (13.5-17.5); Immature Grans % 0.4; Lymphocytes % 41.9; MCH 30.4 pg (27.0-33.0); MCHC 33.8 % (32.0-36.0); MCV 89.9 fL (80-95); MPV 9.8 fL (8.0-11.0); Monocytes % 12.8; Neutrophils % 40.3; Nucleated RBC 0 %; Platelet Count 227 10^3/uL (130-400); RBC 4.67 10^6/uL (4.36-5.78); RDW 12.2 % (11.8-14.1); RDW-SD 40.1 fL; WBC 5.47 10^3/uL (4.4-10.8)
[2021-01-03] MEDS: Ketorolac 15 MG/ML VIAL IVP (15:41)
[2021-01-03 15:54] LABS: ALT 37 U/L (16-63); AST 21 U/L (15-37); Albumin 3.9 g/dL (3.4-5.0); Alkaline Phosphatase 77 U/L (46-116); Anion Gap 7.3 mmol/L (3-11); BUN 20 mg/dL (7-18); Bilirubin, Total 0.8 mg/dL (0.2-1.0); CO2 26.7 mmol/L (21.0-32.0); CREATININE 0.9 mg/dL (0.70-1.30); Chloride 109 mmol/L (98-107); Glucose 103 mg/dL (74-106); Potassium 4.2 mmol/L (3.5-5.1); Sodium 143 mmol/L (136-145)
[2021-01-03 15:58] LABS: Troponin I < 0.05 ng/mL (<0.06)
--- NOTE | 2021-01-03 16:28 | DI.VRAD_ITS ---
PROCEDURE INFORMATION: Exam: XR Chest Exam date and time: 01/03/2021 3:15 PM Age: 55 years old Clinical indication: L chest pain TECHNIQUE: Imaging protocol: XR of the chest. Views: 2 views. COMPARISON: CR XR CHEST 2V PA LATERAL 08/15/2019 7:12 PM FINDINGS: Lungs: Unremarkable. No consolidation. Pleural spaces: Unremarkable. No pleural effusion. No pneumothorax. Heart/Mediastinum: Unremarkable. No cardiomegaly. Bones/joints: Unremarkable. IMPRESSION: No acute findings. Dictated and Authenticated by: Lady Montiel MD. Ordering:ZULEYMA Asencio MD
--- NOTE | 2021-01-03 18:15 | RT.EKG_ITS ---
APPROVED REPORT Exam: Resting ECG Reason for Exam: Patient Location: E HR:53 bpm ECG Measurements Heart Rate 53 AXIS MN 142 P 24 QRSd 95 QRS 66 QT 413 T 32 QTc 387 Conclusion Sinus bradycardia. No ST elevation
[2021-01-03 18:54] LABS: Troponin I < 0.05 ng/mL (<0.06)
== END 2021-01-03 19:19 | disposition home or self-care (01) ==
PROVIDERS: Emergency Provider Emergency Medicine; PCP Family Medicine
DX: R07.89 Other chest pain (principal); F17.210 Nicotine dependence, cigarettes, uncomplicated
CPT/HCPCS: 36415; 80053; 93005; 96374; 99284; 71046; 84484; 85025; 93010; J1885

== ENCOUNTER 2021-04-25 02:40 | Outpatient (CLI) | payer OTHER, SELFPAY ==
[2021-04-25 11:51] LABS: Source Nasal/Nares
[2021-04-25 16:22] LABS: COVID-19 PCR Negative (Negative)
== END 2021-04-25 02:41 | disposition home or self-care (01) ==
LOC: LBO 02:40
PROVIDERS: PCP Family Medicine; Visit Provider Urology
DX: Z20.822 Contact with and (suspected) exposure to COVID-19 (principal)
CPT/HCPCS: 87635

== ENCOUNTER 2021-04-27 06:04 | Day surgery (SDC) | payer OTHER, SELFPAY ==
[2021-04-27] VITALS (7 sets, daily range): BP systolic 102–121; BP diastolic 57–84; PULSE 51–62; RESP 12–16; TEMP 36.4–36.6; O2SAT 98–100; BMI 27.8
[2021-04-27] MEDS: Lactated Ringers 1,000 ML 80 ML IV (06:45)
--- NOTE | 2021-04-27 06:51 | W.PM.HP.N ---
Date of service: 04/27/21 Time of Service: 06:51 Assessment and Plan Assessment and plan (1) Urothelial carcinoma of bladder: Status: Acute Assessment and plan: For cystoscopy, transurethral resection/fulguration and instillation of Mitomycin C. We discussed potential post operative issues including bleeding, infection and chemical cystitis related to the Mitomycin C. History of Present Illness History of Present Illness Chief Complaint: Urothelial cell carcinoma Narrative: This is a 56-year-old gentleman who initially presented with gross hematuria. He had a filling defect identified on CT urogram. He underwent a cystoscopy and transurethral resection of a 2 cm lesion behind the right ureteral orifice. Intravesical therapy was not instilled at the time of the initial resection. The surgical pathology demonstrated low-grade, noninvasive urothelial cell carcinoma. He had a surveillance cystoscopy 3 months later with no recurrence. His 6 month surveillance cystoscopy demonstrated multiple small (<1 cm) papillary lesions at the dome of the bladder. He presents for cystoscopy, transurethral resection instillation of intravesical chemotherapy. He is not having any gross hematuria or clot retention. Review of Systems Narrative: No fevers or chills No vision change or dysphasia No diabetes or thyroid dysfunction No shortness of breath, cough or hemoptysis No chest pain or palpitations No nausea, vomiting, hepatitis, ulcers, jaundice No seizures, strokes or peripheral neuropathy No bleeding disorders or anemia No gout PFSH All Active Problems (Updated 04/27/21 @ 06:22 by Binta Martinez) Osteoarthritis of right hip (Acute) Tobacco abuse (Acute) History of total right hip replacement (Acute 07/27/20) Urothelial carcinoma of bladder (Acute) Cervicalgia (Acute) Hyperlipidemia (Acute) Medical History (Updated 04/27/21 @ 06:22 by Binta Martinez) Hx of gastroesophageal reflux (GERD) Family History Mother No problems noted. Father , age 74 Hyperlipidemia COPD (chronic obstructive pulmonary disease) Brother Alcohol abuse Substance abuse Son No problems noted. Social History Smoking/Tobacco Use Status: Current every day Tobacco Type: cigarettes Smoking packs per day: 1 Smoking cigarettes per day: 20.0 Tobacco: How many years used: 35 Quit status: considering quitting Second Hand Exposure: Yes Smoking risk assessment performed?: Yes Alcohol Intake: current Alcohol Intake frequency: holidays/special occasions only Alcohol type: beer Drug use: Daily Substance use type: marijuana Details: Pt denies use today. Household members: significant other and family Housing: house Communication Needs: None Do you need help understanding health information?: Never Pets and animals: Yes Pets and animals: dog(s) Sexually active: Yes Do you think of yourself as: straight/heterosexual Current gender identity: male What is your relationship status?: How often do you talk on the phone with friends or family?: three or more times per week How often do you get together with friends or relatives?: three or more times per week How often do you attend religious or catholic services?: decline to answer Do you belong to any clubs or organized social groups?: no Panel score (0-1 are the most socially isolated patients): 1 Dai/Islam: None Special dai needs: No Seatbelt use: always Drive intox or ride w/intox cdl dedicated truck driver: No Additional Social history: unable to assess privately Meds Allergies and Home Medications Allergies Allergy/AdvReac Type Severity Reaction Status Date / Time No Known Allergies Allergy Verified 04/27/21 06:22 Home Medications Medication Instructions Recorded Confirmed Type sotjmntnmwur-mxy-qepky acid-vit 1 tab PO DAILY 05/29/19 04/27/21 History K-lycop 400 mcg-20 mcg-370 mcg tablet omega 4-ewh-izn-fish oil 1,000 mg 1 cap PO DAILY 05/29/19 04/27/21 History (120 mg-180 mg) capsule acetaminophen 1,000 mg PO Q8H PRN #90 tab 07/27/20 04/27/21 Rx rosuvastatin 20 mg tablet 20 mg PO DAILY #90 tab 08/08/20 04/27/21 Rx famotidine 20 mg tablet 20 mg PO DAILY 01/10/21 04/27/21 History omeprazole 40 mg capsule,delayed 40 mg PO DAILY #90 cap 01/25/21 04/27/21 Rx release ibuprofen 800 mg tablet 800 mg PO Q8H PRN #90 tab 02/23/21 04/25/21 Rx Exam Const General: cooperative and comfortable Neck Neck: supple Resp Effort & Inspection: normal respiratory effort Auscultation: clear to auscultation bilaterally Cardio Rate: regular rate Rhythm: regular rhythm GI Palpation: soft and no masses Neuro General: patient alert, patient awake and patient oriented x3 Results Last Vital Signs Temp 36.6 C 04/27/21 06:25 Pulse 62 04/27/21 06:25 Resp 16 04/27/21 06:25 BP 102/84 04/27/21 06:25 Pulse Ox 98 04/27/21 06:25
--- NOTE | 2021-04-27 07:13 | ANES.PREOP_ITS ---
General Info Date of Service Date Performed: 04/27/21 Height: 5 ft 7 in Weight: 80.6 kg Body Mass Index (BMI): 27.8 Surgical Procedure: Operation Date: 04/27/21 07:40 Proposed Procedures Side Surgeon p Cystoscopy/TURBT/Instill Mytomycin into Bladder Albaro Huber MD Meds Allergies and Home Medications Allergies Allergy/AdvReac Type Severity Reaction Status Date / Time No Known Allergies Allergy Verified 04/27/21 06:22 Home Medication Medication Instructions Recorded djiqjjnsfjhl-pgv-mixsj acid-vit 1 tab PO DAILY 05/29/19 K-lycop 400 mcg-20 mcg-370 mcg tablet omega 8-fck-xrg-fish oil 1,000 mg 1 cap PO DAILY 05/29/19 (120 mg-180 mg) capsule acetaminophen 1,000 mg PO Q8H PRN #90 tab 07/27/20 rosuvastatin 20 mg tablet 20 mg PO DAILY #90 tab 08/08/20 famotidine 20 mg tablet 20 mg PO DAILY 01/10/21 omeprazole 40 mg capsule,delayed 40 mg PO DAILY #90 cap 01/25/21 release ibuprofen 800 mg tablet 800 mg PO Q8H PRN #90 tab 02/23/21 Current Visit Medications: Current Medications Generic Name Dose Route Start Last Admin Trade Name Freq PRN Reason Stop Dose Admin Mitomycin 40 mg/ Sodium 0 mg 04/27/21 06:00 Chloride 40 ml BLADIN 04/27/21 16:00 DIRECTED BETH Ringer's Solution 1,000 mls @ 80 mls/hr 04/27/21 06:00 04/27/21 06:45 IV 05/12/21 23:59 80 mls/hr INFUSION BETH Administration Cefazolin Sodium/Dextrose 1 gm in 50 mls @ 100 mls/hr 04/27/21 06:00 Ancef Duplex IVPB 04/27/21 16:00 PREOP BETH IV Miscellaneous Supplies 1 each 04/27/21 06:00 Iv Access IV 05/12/21 23:59 DIRECTED BETH Sodium Chloride 0 ml 04/27/21 06:00 Normal Saline Flush 10 Ml Syr IV 05/12/21 23:59 PRN PRN Sodium Chloride 0 ml 04/27/21 06:00 Normal Saline 10 Ml Vial IJ 05/12/21 23:59 DIRECTED PRN Sterile Water 0 ml 04/27/21 06:00 Water,Injection,Sterile 10 Ml Vial IJ 05/12/21 23:59 DIRECTED PRN PFSH Active Problems Active Problems: Problem Status Onset Code Osteoarthritis of right hip M16.11 Tobacco abuse Z72.0 History of total right hip replacement 07/27/20 Z96.641 Urothelial carcinoma of bladder C67.9 Cervicalgia M54.2 Hyperlipidemia E78.5 Medical History Medical History (Updated 04/27/21 @ 06:22 by Binta Martinez) Hx of gastroesophageal reflux (GERD) Tobacco Smoking/Tobacco Use Status: Current every day Tobacco Type: cigarettes Smoking packs per day: 1 Smoking cigarettes per day: 20.0 Tobacco: How many years used: 35 Passive smoking exposure: Yes Quit Status: considering quitting Second hand exposure: Yes Alcohol Alcohol Intake: current Alcohol intake frequency: holidays/special occasions only Alcohol type: beer Substance Use Substance use: Daily Substance use type: marijuana Details: Pt denies use today. Vital Signs and Lab Results Vital Signs Most Recent Vital Signs in EMR: Most Recent Vital Signs Temp Pulse Resp BP Pulse Ox 36.6 C 62 16 102/84 98 04/27/21 06:25 04/27/21 06:25 04/27/21 06:25 04/27/21 06:25 04/27/21 06:25 Lab Results Blood Type / Crossmatch: No Data to Display Complete Blood Count: No Data to Display Complete Metabolic Panel: Hemoglobin A1c 5.5 % (4.5-5.7) 04/07/21 10:22 04/07/21 Liver Function Panel: No Data to Display Coagulation Panel: No Data to Display Cardiac Panel: No Data to Display Arterial Blood Gas: No Data to Display Venous Blood Gas: No Data to Display Pancreas Panel: No Data to Display Thyroid Panel: No Data to Display Infectious Disease: 2 Coronavirus (COVID-19)(PCR) Negative (Negative) 04/25/21 07:45 04/25/21 Coronavirus 2019 Source Nasal/Nares 04/25/21 07:45 04/25/21 Blood Cultures: No Data to Display Toxicology Panel: No Data to Display Anesthesia Assessment and Plan Anesthesia History Personal History: No History of Anesthesia Complications Family History: No Family History of Anesthesia Complications Exercise Tolerance Exercise Tolerance: Metabolic Equivalents>4 Pertinent Negatives Pertinent Negatives: No Symptoms of GERD Cardiac & Pulmonary Exam Cardiac Exam: Normal S1/S2 Heart Sounds Pulmonary Exam: Clear Bilateral Breath Sounds Implantable Cardiac Device Does patient have a Pacemaker or an ICD?: No Airway Exam Known Difficult Airway: No Mallampati Class: 2 Mouth Opening: Normal (> 3cm) Thyromental Distance: Greater than 3 cm Neck Range of Motion: Full ROM Neck Circumference: Normal Teeth Condition: Loose or Chipped ASA Classification ASA Score: ASA 2 Emergency Case?: No NPO Status NPO Status: NPO Clears >2 hours, Solids >8 hours Anesthesia Plan Resuscitation Status: Full Code Anesthesia Technique: General Anesthesia Airway Planned: Natural Airway Monitors Used: Standard Monitors
[2021-04-27] MEDS: ceFAZolin 1 GM/50 ML BAG IVPB (07:26)
--- NOTE | 2021-04-27 07:48 | BLADDER_PTH ---
PATIENT: Hayes Grijalva LOC: [facility] U#:[id number] AGE/SX: 56/M ROOM: RE04/27/[address]: Albaro Huber MD : 1965 BED: DIS: 04/27/2021 SPEC #: [id number] RECD: 04/27/21 12:46 STATUS: DIDI REQ #: [id number] TAE: 04/27/21 07:[address]: Albaro Huber DEPT: Surgical Specimen RECD BY: Alessia Newton ENTERED: 04/27/21 12:47 SP TYPE: Bladder OTHR DR: Antonino Sharma MD Tissues: 1 - BLADDER BIOPSY Procedures: GROSS AND MICRO LEVEL 4 Comments: [id number]
[2021-04-27] MEDS: Lidocaine 2% Jelly 6 ML SYR (07:53)
--- NOTE | 2021-04-27 07:56 | W.PM.DSUDISC ---
Discharge Plan Disposition Patient Disposition: HOME Condition: Stable Discharge Details Reason For Visit: bladder cancer Attending Provider: Albaro Huber Primary Care Provider: Antonino Sharma Home Meds and New Rx's Prescriptions: No Action One-A-Day Men's 50 Plus 400-20-370 mcg tablet 1 tab PO DAILY RF: 0 omega 0-uqz-dru-fish oil [Fish Oil] 1,000 mg (120 mg-180 mg) capsule 1 cap PO DAILY RF: 0 famotidine 20 mg tablet 20 mg PO DAILY RF: 0 rosuvastatin 20 mg tablet 20 mg PO DAILY Qty: 90 RF: 3 omeprazole 40 mg capsule,delayed release(DR/EC) 40 mg PO DAILY Qty: 90 RF: 3 ibuprofen 800 mg tablet 800 mg PO Q8H PRN (Reason: pain) Qty: 90 RF: 3 acetaminophen 500 mg tablet 1,000 mg PO Q8H PRN (Reason: pain) Qty: 90 RF: 3 Discharge Instructions Additional Instructions: Leave catheter clamped with Mitomycin C instilled in bladder for 1 to 2 hours then unclamp catheter, drain bladder and remove catheter (unclamp sooner prn pain) followup @ 2 weeks for surgical pathology Stand Alone Forms: Anesthesia Discharge Inst., [facility] Urology Cysto, Bladder Instillation-Chemo Activity:: Activity as Tolerated Shower/Bathe:: 24 hours Diet:: As Tolerated Discharge Orders Discharge Orders: Discharge Order (Routine); Ordered 04/27/21 Ordered By: Albaro Huber DS: Diagnosis Discharge Diagnosis (1) Urothelial carcinoma of bladder: Status: Acute
--- NOTE | 2021-04-27 08:00 | ROE_ITS ---
Date of service: 04/27/21 Time of Service: 08:00 Operative Note Operative Note DATE OF PROCEDURE: 04/27/21 PRE-OP DIAGNOSIS: Bladder cancer POST-OP DIAGNOSIS: same PROCEDURE: cystoscopy, TUR bladder tumor (less than 1 cm), fulguration of additional bladder tumors, instillation of Mitomycin C into bladder SURGEON: Albaro Huber ANESTHESIA TYPE: Local By Surgeon and General:No Airway Refer to Anesthesia Record ESTIMATED BLOOD LOSS: 10 PATHOLOGY: other (bladder biopsy) COMPLICATIONS: None Patient was transported to: PACU Patient's condition: stable Implants: 16 Tu[place]uan laureano with 10 cc sterile water in balloon (clamped with 40 mg Mitomycin C solution instilled) Indications: This is a 56-year-old gentleman with a history of esophageal carcinoma bladder. We identified a papillary lesion to the dome of his bladder survey. He presents for transurethral resection. Findings: Multiple small papillary lesions at dome of bladder Procedure Description: The patient was brought to the operating room 04/17/2021. He was given preoperative IV antibiotics. After successful induction of general anesthesia without intubation, he was placed in the dorsal lithotomy position. His genitalia was prepped. 2% Xylocaine jelly was instilled into the urethra to act as a local anesthetic. A 24 [place] resectoscope sheath was passed through the urethra into the bladder. We inspected the urethra using a 30 degree lens and visual obturator. The pendulous, bulbar and membranous urethra was all appeared normal with no strictures. The prostatic urethra showed some lateral lobe enlargement but no significant median lobe. The bladder was inspected and a less than 1 cm papillary lesions were identified up towards the dome. 1 of these lesions was resected in the same test bipolar cautery. The resected tissue was sent to pathology for permanent section. The resected site was cauterized. The additional tumors were cauterized using coagulation current. The bladder was then emptied and the scope was removed. I then passed a 16 [place] Laureano catheter through the urethra into the bladder. The catheter balloon was inflated with 10 cc of sterile water. The bladder was drained and a solution of 40 mg of mitomycin-C mixed in 40 mL of saline was instilled into the bladder. The catheter was clamped leaving the solution in place. The patient tolerated this procedure well with no complication. He was taken to the recovery room in stable condition.
[2021-04-27] MEDS: Phenazopyridine 200 MG TAB PO (08:21)
--- NOTE | 2021-04-27 09:00 | W.ANESPOSTOP ---
Postoperative Evaluation Date, Time and Location Date Performed: 04/27/21 Time Performed: 09:00 Patient Location: Day Surgery Unit Vital Signs Most Recent Imported Vital Signs: Most Recent Vital Signs Temp Pulse Resp BP Pulse Ox 36.4 C L 58 L 14 111/81 100 04/27/21 08:23 04/27/21 08:23 04/27/21 08:23 04/27/21 08:23 04/27/21 08:23 Pain Score Most Recent Pain Score: Most Recent Pain Score Pain Level 3 04/27/21 06:25 Assessment Mental Status: Awake (Alert & Oriented to Patient Baseline) Airway and Respiratory Function: Patent airway with normal (patient baseline) respiratory exam Cardiovascular Function: Hemodynamically Stable Hydration Status: Adequately Hydrated Nausea & Vomiting: No Nausea or Vomiting Pain: Pt. Denies Any Pain (Reports pressure from bladder, no pain at this time) Peripheral Nerve Block: Patient did not receive a nerve block
== END 2021-04-27 09:45 | disposition home or self-care (01) ==
PROVIDERS: PCP Family Medicine; Visit Provider Urology
PROC: 0TJB8ZZ Inspection of Bladder, Via Natural or Artificial Opening Endoscopic (ICD-10-PCS; CPT 52000; principal; 2021-04-27 07:30)
DX: N32.89 Other specified disorders of bladder (principal); F17.210 Nicotine dependence, cigarettes, uncomplicated; E78.5 Hyperlipidemia, unspecified
CPT/HCPCS: 52234; 51720; 88305; J0690; J2250; J2405; J9280

== ENCOUNTER 2021-07-31 08:46 | Outpatient (CLI) | payer OTHER, SELFPAY ==
--- NOTE | 2021-07-31 08:00 | DI.RAD_ITS ---
Exam(s) XR HIP RT AP LAT ONLY EXAM: XR HIP RT AP LAT ONLY CLINICAL HISTORY: R THR. TECHNIQUE: 2D digital imaging was performed. COMPARISON: CR XR HIP RT COMPLETE AP PELVIS from 08/11/2020 FINDINGS: Two views Position alignment of the components of the right hip prosthesis remain stable, with no fracture or l oosening. There is no radiographic evidence of osteomyelitis. Appearance is unchanged from 08/11/2020. IMPRESSION: DATA REPOSITORY: RADIATION DOSE DELIVERED:
== END 2021-07-31 08:47 | disposition home or self-care (01) ==
LOC: DIORS 08:46
PROVIDERS: PCP Family Medicine; Visit Provider Student in an Organized Health Care Education/Training Program
DX: Z96.641 Presence of right artificial hip joint (principal); Z47.1 Aftercare following joint replacement surgery
CPT/HCPCS: 73502

== ENCOUNTER 2021-08-01 02:43 | Outpatient (CLI) | payer OTHER, SELFPAY ==
[2021-08-01 08:06] LABS: Abs Immature Grans 0.01 10^3/uL (0.0-0.06); Absolute Basophil Count 0.05 10^3/uL (0.0-0.2); Absolute Eosinophil Count 0.18 10^3/uL (0.0-0.7); Absolute Lymphocyte Count 2.22 10^3/uL (1.2-3.4); Absolute Neutrophil Count 3.22 10^3/uL (1.2-6.7); Basophils % 0.8; Eosinophils % 2.8; HCT 43.6 % (40.0-50.0); HGB 14.8 g/dL (13.5-17.5); Immature Grans % 0.2; Lymphocytes % 34.8; MCH 30.7 pg (27.0-33.0); MCHC 33.9 % (32.0-36.0); MCV 90.5 fL (80-95); MPV 9.6 fL (8.0-11.0); Neutrophils % 50.4; Nucleated RBC 0 %; Platelet Count 239 10^3/uL (130-400); RBC 4.82 10^6/uL (4.36-5.78); WBC 6.38 10^3/uL (4.4-10.8)
[2021-08-01 09:14] LABS: ALT 39 U/L (16-63); AST 25 U/L (15-37); Albumin 4.2 g/dL (3.4-5.0); Alkaline Phosphatase 79 U/L (46-116); Anion Gap 8.6 mmol/L (3-11); BUN 22 mg/dL (7-18); Bilirubin, Total 1.1 mg/dL (0.2-1.0); CO2 26.4 mmol/L (21.0-32.0); CREATININE 0.9 mg/dL (0.70-1.30); Calcium 9.2 mg/dL (8.5-10.1); Calculated LDL 148 mg/dL (<100); Chloride 105 mmol/L (98-107); Cholesterol 222 mg/dL (<200); Glucose 108 mg/dL (74-106); HDL Cholesterol 40 mg/dL (40-60); Potassium 4.3 mmol/L (3.5-5.1); Sodium 140 mmol/L (136-145); TSH (W/Ref FT4) 3.47 uIU/mL (0.36-3.74); Total Protein 7.3 g/dL (6.4-8.2); Triglyceride 172 mg/dL (<150)
== END 2021-08-01 02:44 | disposition home or self-care (01) ==
LOC: LBO 02:43
PROVIDERS: PCP Family Medicine; Visit Provider Family Medicine
DX: C67.9 Malignant neoplasm of bladder, unspecified (principal); I10 Essential (primary) hypertension; E78.5 Hyperlipidemia, unspecified; R53.83 Other fatigue
CPT/HCPCS: 36415; 80053; 80061; 84443; 85025

== ENCOUNTER 2022-05-16 02:50 | Outpatient (CLI) | payer OTHER, SELFPAY ==
--- NOTE | 2022-05-16 10:33 | DI.RAD_ITS ---
Exam(s) XR FOOT LT COMPLETE EXAM: XR FOOT LT COMPLETE CLINICAL HISTORY: left foot pain, base of fifth,M79.672. TECHNIQUE: 2D digital imaging was performed. Three views. COMPARISON: No exams were available for comparison FINDINGS: BONES: No acute fracture is present. No bony destructive lesion is seen. JOINTS: No dislocation present. No significant degenerative changes. SOFT TISSUE: Normal. IMPRESSION: Unremarkable radiographs of the left foot. DATA REPOSITORY: RADIATION DOSE DELIVERED:
== END 2022-05-16 03:10 ==
LOC: DI 02:50
PROVIDERS: PCP Family Medicine; Visit Provider Physician Assistant
DX: M79.672 Pain in left foot (principal)
CPT/HCPCS: 73630

== ENCOUNTER 2022-07-23 07:53 | Day surgery (SDC) | payer OTHER, SELFPAY ==
--- NOTE | 2022-07-23 07:20 | W.ANESPRE ---
General Info Date of Service Date Performed: 07/23/22 Height: 5 ft 7 in Weight: 79.379 kg Body Mass Index (BMI): 27.3 Surgical Procedure: Operation Date: 07/23/22 09:55 Proposed Procedure Side Surgeon p Cystoscopy/Transurethral Resection Bladder Tumor Albaro Huber MD Meds Allergies and Home Medications Allergies Allergy/AdvReac Type Severity Reaction Status Date / Time No Known Allergies Allergy Verified 07/20/22 11:56 Home Medication Medication Instructions Recorded lgrxppzwyreu-twb-gvoyx acid-vit 1 tab PO DAILY 05/29/19 K-lycop 400 mcg-20 mcg-370 mcg tablet (One-A-Day Men's 50 Plus) omega 1-wjq-uqa-fish oil 1,000 mg 1 cap PO DAILY 05/29/19 (120 mg-180 mg) capsule (Fish Oil) acetaminophen 500 mg tablet 1,000 mg PO Q8H PRN pain #90 tabs 07/27/20 omeprazole 40 mg capsule,delayed 40 mg PO DAILY #90 caps 02/19/22 release ibuprofen 800 mg tablet 800 mg PO Q8H 07/04/22 rosuvastatin 40 mg tablet 40 mg PO DAILY #90 tabs 07/04/22 Current Visit Medications: Current Medications Generic Name Dose Route Start Last Admin Trade Name Freq PRN Reason Stop Dose Admin Ringer's Solution 1,000 mls @ 80 mls/hr 07/23/22 06:00 IV 08/19/22 23:59 INFUSION BETH Cefazolin Sodium/Dextrose 2 gm in 50 mls @ 100 mls/hr 07/23/22 06:00 Ancef Duplex IVPB 08/19/22 23:59 PREOP BETH IV Miscellaneous Supplies 1 each 07/23/22 06:00 Iv Access IV 08/19/22 23:59 DIRECTED BETH Sodium Chloride 0 ml 07/23/22 06:00 Normal Saline Flush 10 Ml Syr IV 08/19/22 23:59 PRN PRN Sodium Chloride 0 ml 07/23/22 06:00 Normal Saline 10 Ml Vial IJ 08/19/22 23:59 DIRECTED PRN Sterile Water 0 ml 07/23/22 06:00 Water,Injection,Sterile 10 Ml Vial IJ 08/19/22 23:59 DIRECTED PRN PFSH Active Problems Active Problems: Problem Status Onset Code Pain, foot M79.673 Tendinitis of ankle or foot M77.50 Dysesthesia R20.8 Left shoulder pain M25.512 Nicotine dependence F17.200 Personal history of nicotine dependence Z87.891 Osteoarthritis of right hip M16.11 History of total right hip replacement 07/27/20 Z96.641 Urothelial carcinoma of bladder C67.9 Hyperlipidemia E78.5 Medical History Medical History Cervicalgia Base of neck without deformity or radiculopathy Hx of gastroesophageal reflux (GERD) Tobacco Smoking/Tobacco Use Status: Current every day Tobacco Type: cigarettes Smoking packs per day: 1 Smoking cigarettes per day: 20.0 Passive smoking exposure: Yes Second hand exposure: Yes Alcohol Alcohol Intake: current Alcohol intake frequency: holidays/special occasions only Alcohol type: beer Substance Use Substance use: Daily Substance use type: marijuana Vital Signs and Lab Results Vital Signs Most Recent Vital Signs in EMR: Temp Pulse Resp BP Pulse Ox 36.3 C L 63 16 120/64 100 07/23/22 08:19 07/23/22 08:19 07/23/22 08:19 07/23/22 08:19 07/23/22 08:19 Lab Results Blood Type / Crossmatch: No Data to Display Complete Blood Count: No Data to Display Complete Metabolic Panel: No Data to Display Liver Function Panel: No Data to Display Coagulation Panel: No Data to Display Cardiac Panel: No Data to Display Arterial Blood Gas: No Data to Display Venous Blood Gas: No Data to Display Pancreas Panel: No Data to Display Thyroid Panel: No Data to Display Infectious Disease: No Data to Display Blood Cultures: No Data to Display Toxicology Panel: No Data to Display Imaging and Studies Imaging and Studies Study information below may be from another EMR and interpreted by another provider. Please see original notes in EMR for more complete details. EKG Summary: 12/31: sinus elsy. Anesthesia Assessment and Plan Anesthesia History Personal History: No History of Anesthesia Complications Family History: No Family History of Anesthesia Complications Exercise Tolerance Exercise Tolerance: Metabolic Equivalents>4 Cardiac & Pulmonary Exam Cardiac Exam: Normal S1/S2 Heart Sounds Pulmonary Exam: Clear Bilateral Breath Sounds Implantable Cardiac Device Does patient have a Pacemaker or an ICD?: No Airway Exam Known Difficult Airway: No Mallampati Class: 2 Mouth Opening: Normal (> 3cm) Thyromental Distance: Greater than 3 cm Neck Range of Motion: Full ROM Neck Circumference: Normal Teeth Condition: Loose or Chipped ASA Classification ASA Score: ASA 2 Emergency Case?: No NPO Status NPO Status: NPO Clears >2 hours, Solids >8 hours Anesthesia Plan Resuscitation Status: Full Code Anesthesia Technique: General Anesthesia Airway Planned: Natural Airway Monitors Used: Standard Monitors Preoperative Comments:: 57 yo male with bladder tumor for TURBT. Sig PMHx: GERD (omeprazole, well controlled), daily cannabis/tobacco, occ EtOH, lung nodules, Previous Anes: - RUBA, spinal, midaz/prop, natural airway, no issues. - TURBT/cysto x 2, prop, natural airway.
[2022-07-23 08:19] VITALS: BP 120/64; PULSE 63; RESP 16; TEMP 36.3; O2SAT 100
[2022-07-23] MEDS: Lactated Ringers 1,000 ML 80 ML IV (08:30)
--- NOTE | 2022-07-23 09:16 | HPE_ITS ---
Date of service: 07/23/22 Time of Service: 09:16 Assessment and Plan Assessment and plan (1) Urothelial carcinoma of bladder: Status: Acute Assessment and plan: For cystoscopy with TURBT History of Present Illness History of Present Illness Chief Complaint: Bladder tumor Narrative: This is a 57-year-old gentleman who has a history of low-grade, noninvasive urothelial cell carcinoma of the bladder. On surveillance cystoscopy, he was found to have a small papillary lesion up towards the dome of the bladder. He presents for transurethral resection of this lesion. Review of Systems Narrative: No fevers or chills No vision change or dysphasia No diabetes or thyroid dysfunction No shortness of breath, cough or hemoptysis No chest pain or palpitations No nausea, vomiting, hepatitis, ulcers, jaundice, diarrhea or constipation No seizures, strokes or peripheral neuropathy No bleeding disorders or anemia No gout PFSH All Active Problems Pain, foot (Acute) Tendinitis of ankle or foot (Acute) Dysesthesia (Acute) left fingers Left shoulder pain (Acute) Nicotine dependence (Acute) Personal history of nicotine dependence (Acute) 3.,1ppd, 30 plus yr pk yr hx Osteoarthritis of right hip (Acute) History of total right hip replacement (Acute 07/27/20) Urothelial carcinoma of bladder (Acute) Hyperlipidemia (Acute) Medical History Cervicalgia Base of neck without deformity or radiculopathy Hx of gastroesophageal reflux (GERD) Family History Mother No problems noted. Father , age 74 Hyperlipidemia COPD (chronic obstructive pulmonary disease) Brother Alcohol abuse Substance abuse Son No problems noted. Social History (Updated 07/05/22 @ 18:24 by Marie Jeffrey) Smoking/Tobacco Use Status: Current every day Tobacco Type: cigarettes Smoking packs per day: 1 Smoking cigarettes per day: 20.0 Tobacco: How many years used: 35 Quit status: considering quitting Second Hand Exposure: Yes Smoking risk assessment performed?: Yes Alcohol Intake: current Alcohol Intake frequency: holidays/special occasions only Alcohol type: beer Drug use: Daily Substance use type: marijuana Caregiver/Support person: No Household members: significant other and family Housing: house Communication Needs: None Do you need help understanding health information?: Rarely Pets and animals: Yes Pets and animals: dog(s) Sexually active: Yes Do you think of yourself as: straight/heterosexual Current gender identity: male What is your relationship status?: How often do you talk on the phone with friends or family?: three or more times per week How often do you get together with friends or relatives?: three or more times per week How often do you attend islam or tenriism services?: decline to answer Do you belong to any clubs or organized social groups?: no Panel score (0-1 are the most socially isolated patients): 1 What type of physical activity do you participate in: walking Duration: > 90 minutes/day Frequency: 5-6 times per week Dai/Yazdanism: None Special dai needs: No Seatbelt use: always Helmet use: Yes Helmet use: always Drive 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 Do you feel safe at home: Yes Do you feel safe in your relationship?: Yes Additional Social history: unable to assess privately Meds Allergies and Home Medications Allergies Allergy/AdvReac Type Severity Reaction Status Date / Time No Known Allergies Allergy Verified 07/20/22 11:56 Home Medications Medication Instructions Recorded Confirmed Type raddpkqiujqg-rbs-xhvuu acid-vit 1 tab PO DAILY 05/29/19 07/23/22 History K-lycop 400 mcg-20 mcg-370 mcg tablet (One-A-Day Men's 50 Plus) omega 7-kmc-prr-fish oil 1,000 mg 1 cap PO DAILY 05/29/19 07/23/22 History (120 mg-180 mg) capsule (Fish Oil) acetaminophen 500 mg tablet 1,000 mg PO Q8H PRN pain #90 tabs 07/27/20 07/23/22 Rx omeprazole 40 mg capsule,delayed 40 mg PO DAILY #90 caps 02/19/22 07/23/22 Rx release ibuprofen 800 mg tablet 800 mg PO Q8H 07/04/22 07/23/22 History rosuvastatin 40 mg tablet 40 mg PO DAILY #90 tabs 07/04/22 07/23/22 Rx Exam Const General: cooperative Neck Neck: supple Resp Effort & Inspection: normal respiratory effort Auscultation: clear to auscultation bilaterally Cardio Rate: regular rate Rhythm: regular rhythm GI Palpation: soft and no guarding Neuro General: patient alert, patient awake and patient oriented x3 Results Last Vital Signs Temp 36.3 C L 07/23/22 08:19 Pulse 63 07/23/22 08:19 Resp 16 07/23/22 08:19 BP 120/64 07/23/22 08:19 Pulse Ox 100 07/23/22 08:19 Time Spent Time spent with Patient: <40 minutes Time was spent: counseling the patient
[2022-07-23 09:23] VITALS: BMI 27.3
[2022-07-23] MEDS: ceFAZolin 2 GM/50 ML BAG IVPB (09:49)
[2022-07-23] MEDS: Lidocaine 2% Jelly 11 ML SYR (09:59)
--- NOTE | 2022-07-23 10:04 | BLADDER_PTH ---
PATIENT: Hayes Grijalva LOC: [facility] U#:[id number] AGE/SX: 57/M ROOM: RE07/23/[address]: Albaro Huber MD : 1965 BED: DIS: 07/23/2022 SPEC #: [id number] RECD: 07/23/22 12:50 STATUS: DIDI REQ #: [id number] TAE: 07/23/22 10:[address]: Albaro Huber DEPT: Surgical Specimen RECD BY: Alessia Newton ENTERED: 07/23/22 12:51 SP TYPE: Bladder OTHR DR: Antonino Sharma MD Tissues: 1 - BLADDER BIOPSY Procedures: GROSS AND MICRO LEVEL 5 Comments: [id number]
--- NOTE | 2022-07-23 10:10 | W.PM.DSUDISC ---
Date of service: 07/23/22 Time of Service: 10:10 Discharge Plan Discharge Details Reason For Visit: bladder tumor Attending Provider: Albaro Huber Primary Care Provider: Antonino Sharma Home Meds and New Rx's Prescriptions: No Action One-A-Day Men's 50 Plus 400-20-370 mcg tablet 1 tab PO DAILY omega 0-kqv-yhq-fish oil [Fish Oil] 1,000 mg (120 mg-180 mg) capsule 1 cap PO DAILY ibuprofen 800 mg tablet 800 mg PO Q8H rosuvastatin 40 mg tablet 40 mg PO DAILY Qty: 90 3RF omeprazole 40 mg capsule,delayed release(DR/EC) 40 mg PO DAILY Qty: 90 3RF acetaminophen 500 mg tablet 1,000 mg PO Q8H PRN (Reason: pain) Qty: 90 3RF Discharge Instructions Additional Instructions: followup 1 to 2 weeks for pathology results Activity:: Activity as Tolerated Shower/Bathe:: 24 hours Diet:: As Tolerated DS: Diagnosis Discharge Diagnosis (1) Urothelial carcinoma of bladder: Status: Acute
[2022-07-23 10:20] VITALS: BP 110/50; PULSE 64; RESP 16; TEMP 36.4; O2SAT 97
--- NOTE | 2022-07-23 10:28 | W.ANESPOSTOP ---
Postoperative Evaluation Date, Time and Location Date Performed: 07/23/22 Time Performed: 10:28 Patient Location: Day Surgery Unit Vital Signs Most Recent Imported Vital Signs: Most Recent Vital Signs Temp Pulse Resp BP Pulse Ox 36.4 C L 64 16 110/50 L 97 07/23/22 10:20 07/23/22 10:20 07/23/22 10:20 07/23/22 10:20 07/23/22 10:20 Pain Score Most Recent Pain Score: Most Recent Pain Score Pain Level 0 07/23/22 10:20 Assessment Mental Status: Awake (Alert & Oriented to Patient Baseline) Airway and Respiratory Function: Patent airway with normal (patient baseline) respiratory exam Cardiovascular Function: Hemodynamically Stable Hydration Status: Adequately Hydrated Nausea & Vomiting: No Nausea or Vomiting Pain: Pain is tolerable per patient Peripheral Nerve Block: Patient did not receive a nerve block
[2022-07-23 10:30] VITALS: BP 106/65; PULSE 53; RESP 14; TEMP 36.4; O2SAT 97
[2022-07-23 10:40] VITALS: BP 113/60; PULSE 52; RESP 16; TEMP 36.3; O2SAT 99
[2022-07-23] MEDS: Phenazopyridine 200 MG TAB PO (10:46)
--- NOTE | 2022-07-23 10:58 | ROE_ITS ---
Date of service: 07/23/22 Time of Service: 10:58 Operative Note Operative Note DATE OF PROCEDURE: 07/23/22 PRE-OP DIAGNOSIS: Bladder cancer Bladder stone PROCEDURE: Cystoscopy, evacuation of bladder stone, transurethral resection of small bladder tumor SURGEON: Albaro Huber ANESTHESIA TYPE: General:No Airway Refer to Anesthesia Record ESTIMATED BLOOD LOSS: 0 PATHOLOGY: other (1. Bladder tumor 2. Bladder stone for chemical analysis) COMPLICATIONS: None Patient was transported to: same day Patient's condition: stable Implants: none Indications: This is a 57-year-old gentleman who has a history of urothelial cell carcinoma of the bladder. His tumors have been low-grade and noninvasive. He had undergone transurethral resection of his initial tumor. He did have a recurrence that was treated with transurethral resection and instillation of Mitomycin-C into the bladder. He recently had a surveillance cystoscopy and a recurrent papillary lesion was found up at the dome of the bladder. He presents for transurethral resection. Findings: 1. Stone particles attached to previous resection site 2. 1 to 2 cm papillary lesion at the dome of the bladder Procedure Description: The patient was given preoperative antibiotics and brought to the operating room on 07/23/2022. After successful induction of general anesthesia, he was placed in the dorsal lithotomy position. His genitalia was prepped and draped. 2% Xylocaine jelly was instilled into the urethra to act as a local anesthetic. A 24 [place] resectoscope sheath was passed through the urethra into the bladder. The urethra and bladder were inspected with a 30 degree lens. The pendulous, bulbar and membranous urethra's appeared normal with no strictures. The prostatic urethra showed some lateral lobe enlargement but no significant median lobe. The bladder neck was entered and the bladder mucosa was inspected. Both ureteral orifices appeared normal with no blood coming from either side. Behind the right ureteral orifice, there was a scar from his previous transurethral resection. 2 small stones were adherent to the scar. The stones were evacuated and sent to pathology for chemical analysis. The remainder the bladder was inspected and a small, 1 to 2 cm papillary lesion was seen up towards the right side of the dome of the bladder. No additional papillary lesions were seen. Transurethral resection of the lesion was performed using an [facility] resectoscope and bipolar cautery. The resected tissue was evacuated and sent to pathology for permanent section. The base of the resection site was cauterized using the coagulation current. Hemostasis appeared excellent. The bladder was emptied and the scope was removed. The patient tolerated the procedure well with no complications.
[2022-07-23 11:01] VITALS: BP 116/59; PULSE 55; RESP 16; TEMP 36.3; O2SAT 98
== END 2022-07-23 11:25 | disposition home or self-care (01) ==
PROVIDERS: PCP Family Medicine; Visit Provider Urology
PROC: 0TBB8ZZ Excision of Bladder, Via Natural or Artificial Opening Endoscopic (ICD-10-PCS; CPT 52234; principal; 2022-07-23 09:45)
DX: C67.1 Malignant neoplasm of dome of bladder (principal); N21.0 Calculus in bladder
CPT/HCPCS: 52234; 88305; 82365; 88307; J0690; J1100; J2405; J2704

== ENCOUNTER 2022-07-26 09:40 | Emergency (ER) | payer OTHER, SELFPAY ==
[2022-07-26 09:45] VITALS: BP 139/78; PULSE 70; RESP 18; TEMP 36.7; O2SAT 98
--- NOTE | 2022-07-26 09:57 | ED.GENADUL_ITS ---
Discharge Plan Disposition Patient Disposition: Home Discharge Details Clinical Impression: Other acute postprocedural pain Primary Care Provider: Antonino Sharma ED Provider: Davidson Orta Home Meds and New Rx's Prescriptions: Continued One-A-Day Men's 50 Plus 400-20-370 mcg tablet 1 tab PO DAILY omega 3-yge-mbz-fish oil [Fish Oil] 1,000 mg (120 mg-180 mg) capsule 1 cap PO DAILY ibuprofen 800 mg tablet 800 mg PO Q8H rosuvastatin 40 mg tablet 40 mg PO DAILY Qty: 90 3RF omeprazole 40 mg capsule,delayed release(DR/EC) 40 mg PO DAILY Qty: 90 3RF acetaminophen 500 mg tablet 1,000 mg PO Q8H PRN (Reason: pain) Qty: 90 3RF No Action phenazopyridine [Pyridium] 100 mg tablet 100 mg PO TID PRN (Reason: pain) Qty: 15 0RF Discharge Instructions Additional Instructions: At this time I feel that your pain and discomfort is due to your increased activity irritating area of procedure. If you develop any new or significant worsening of symptoms please return immediately to the emergency department for reassessment otherwise follow-up with urology office as discussed. You will need to call the office on Saturday before returning to work for a phone check-in to ensure that you are healing well. During period of rest please do not lift anything greater than 10 pounds. Stand Alone Forms: Work Release Referrals: [facility] [Provider Group] - 07/30/22 (Please call the office Saturday morning before returning to work.) Discharge Data Discharge Date/Time-TO BE ENTERED AT DEPARTURE: 07/26/22 12:30 Medical Decision Making Patient presenting to the emergency department for chief complaint of bladder discomfort. He states on Saturday he had a bladder procedure done by Dr. Huber and had a cancerous polyp removed. Patient states he was pain-free after the procedure and had no complications. Last night he returned to work and after being at work for couple hours, which he states his work is strenuous, he started having some significant discomfort. He does state that going home and going to sleep did seem to help the pain but pain is continued. He did attempt to contact the urology office but stated no provider was able to evaluate him today. Patient denies fever chills, blood in urine, vomiting but does state slight nausea. Physical exam is unremarkable, no rigidity or guarding to abdomen, no tenderness, normal active bowel sounds, no CVA tenderness. Given that patient is postop we will check urinalysis along with labs but at this time we will hold off on any advanced imaging given benign physical exam. Labs reviewed and patient has an unremarkable CBC, normal lactate, slightly elevated BUN at 20, glucose of 122, otherwise labs are nondiagnostic. Urinalysis does show trace amount of blood but otherwise no signs of infection noted. Did speak with Clare Garcia urology nurse practitioner and discussed patient's case. Do feel that this is more of a high likelihood of patient returning to work early causing irritation to the area of the procedure. She is in agreement with this. Patient was placed upon light duty restrictions pending follow-up with urology next week. Patient is in agreement with plan of care. We will continue to take prescribed medications and [id number]-pjvhytt's for pain. After discussion of diagnosis and plan of care patient has no further needs, questions, or concerns and states clear understanding to return to the emergency department for any worsening symptoms. This documentation was generated using [facility] dictation system, please disregard any oddities of phrase or misspellings. Medical Records Medical records reviewed: Yes I reviewed the patient's medical records. Medical records narrative: Reviewed operative notes from recent procedure with no obvious or apparent complications at time of procedure. Lab Data Lab results reviewed: Yes I reviewed the patient's lab results. HPI General Mode of arrival: ambulatory . Date/Time Provider Initiated Documentation: 07/26/22 09:42 . Limitations to Documentation: no limitations . Information obtained by: patient, RN notes reviewed and old records reviewed . History of Present Illness 57 year old M presents to the emergency department with the chief complaint of Bladder pain, described as mild, with intensity rated at 2. Quality is described as aching, and is localized to the abdomen. Patient reports no radiation. Patient started experiencing this day(s) (1) and it has been constant. Rest improves symptom(s), Movement worsens symptoms . Patient notes no other symptoms.. Patient did receive the following treatments prior to arrival, none Related Data Home Medications Medication Instructions Recorded Confirmed yyewvaweqqfv-plt-aviul acid-vit 1 tab PO DAILY 05/29/19 07/26/22 K-lycop 400 mcg-20 mcg-370 mcg tablet (One-A-Day Men's 50 Plus) omega 8-prk-pee-fish oil 1,000 mg 1 cap PO DAILY 05/29/19 07/26/22 (120 mg-180 mg) capsule (Fish Oil) acetaminophen 500 mg tablet 1,000 mg PO Q8H PRN pain #90 tabs 07/27/20 07/26/22 omeprazole 40 mg capsule,delayed 40 mg PO DAILY #90 caps 02/19/22 07/26/22 release ibuprofen 800 mg tablet 800 mg PO Q8H 07/04/22 07/26/22 rosuvastatin 40 mg tablet 40 mg PO DAILY #90 tabs 07/04/22 07/26/22 phenazopyridine 100 mg tablet 100 mg PO TID PRN pain #15 tabs 07/30/22 07/30/22 (Pyridium) Previous Rx's Medication Instructions Recorded acetaminophen 500 mg tablet 1,000 mg PO Q8H PRN pain #90 tabs 07/27/20 omeprazole 40 mg capsule,delayed 40 mg PO DAILY #90 caps 02/19/22 release rosuvastatin 40 mg tablet 40 mg PO DAILY #90 tabs 07/04/22 phenazopyridine 100 mg tablet 100 mg PO TID PRN pain #15 tabs 07/30/22 (Pyridium) Allergies Allergy/AdvReac Type Severity Reaction Status Date / Time No Known Allergies Allergy Verified 07/26/22 09:50 General Stated Complaint: Abd Prob JONE: 3 Review of Systems Constitutional Constitutional: Denies chills, Denies fever(s), Denies malaise and Denies poor appetite Cardiovascular Cardiovascular: Denies chest pain and Denies dyspnea Respiratory Respiratory: Denies cough and Denies dyspnea Gastrointestinal Gastrointestinal: Reports abdominal pain, Denies melena, Denies change in bowel habits, Denies constipation, Denies diarrhea, Reports nausea and Denies vomiting Genitourinary Genitourinary: Reports as per HPI, Denies hematuria, Denies difficulty urinating, Denies genital pain, Denies dysuria, Denies flank pain, Denies urinary hesitancy, Denies urinary incontinence and Denies urinary urgency Integumentary/Breasts Skin/Breast: Denies rash PFSH All Active Problems (Updated 07/26/22 @ 12:09 by Davidson Orta NP) Other acute postprocedural pain (Acute) Pain, foot (Acute) Tendinitis of ankle or foot (Acute) Dysesthesia (Acute) left fingers Left shoulder pain (Acute) Nicotine dependence (Acute) Personal history of nicotine dependence (Acute) 3.,1ppd, 30 plus yr pk yr hx Osteoarthritis of right hip (Acute) History of total right hip replacement (Acute 07/27/20) Hyperlipidemia (Acute) Medical History Cervicalgia Base of neck without deformity or radiculopathy Hx of gastroesophageal reflux (GERD) Urothelial carcinoma of bladder Family History Mother No problems noted. Father , age 74 Hyperlipidemia COPD (chronic obstructive pulmonary disease) Brother Alcohol abuse Substance abuse Son No problems noted. Social History Smoking/Tobacco Use Status: Current every day Tobacco Type: cigarettes Smoking packs per day: 1 Smoking cigarettes per day: 20.0 Tobacco: How many years used: 35 Quit status: considering quitting Second Hand Exposure: Yes Smoking risk assessment performed?: Yes Alcohol Intake: current Alcohol Intake frequency: holidays/special occasions only Alcohol type: beer Drug use: Daily Substance use type: marijuana Caregiver/Support person: No Household members: significant other and family Housing: house Communication Needs: None Do you need help understanding health information?: Rarely Pets and animals: Yes Pets and animals: dog(s) Sexually active: Yes Do you think of yourself as: straight/heterosexual Current gender identity: male What is your relationship status?: How often do you talk on the phone with friends or family?: three or more times per week How often do you get together with friends or relatives?: three or more times per week How often do you attend scientology or taoist services?: decline to answer Do you belong to any clubs or organized social groups?: no Panel score (0-1 are the most socially isolated patients): 1 What type of physical activity do you participate in: walking Duration: > 90 minutes/day Frequency: 5-6 times per week Dai/Zoroastrian: None Special dai needs: No Seatbelt use: always Helmet use: Yes Helmet use: always 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 Do you feel safe at home: Yes Do you feel safe in your relationship?: Yes Additional Social history: unable to assess privately Exam Const General: cooperative Orientation: alert, awake and oriented x3 Resp Effort & Inspection: normal respiratory effort and able to speak in complete sentences Auscultation: clear to auscultation bilaterally Cardio Rate: regular rate Rhythm: regular rhythm Heart Sounds: S1 normal and S2 normal GI Inspection: normal to inspection Palpation: soft, no hepatosplenomegaly, not firm, no guarding, no masses, no pulsatile masses, not rigid, no splenomegaly and nontender Auscultation: normal bowel sounds Back/Spine/Pelvis Back: no CVA tenderness Neuro General: patient alert, patient awake, patient oriented x3, gait normal and moves all extremities Course Vital Signs Vital signs: Vital Signs Temperature 36.7 C 07/26/22 09:45 Pulse 70 07/26/22 09:45 Respiratory Rate 18 07/26/22 09:45 Blood Pressure 139/78 07/26/22 09:45 Pulse Oximetry 98 07/26/22 09:45 Temperature 36.7 C 07/26/22 09:45 Temperature Source Oral 07/26/22 09:45 Pulse 70 07/26/22 09:45 Respiratory Rate 18 07/26/22 09:45 Respiratory Effort Normal, Non-Labored 07/26/22 09:49 Blood Pressure 139/78 07/26/22 09:45 Blood Pressure Position Sitting 07/26/22 09:45 Pulse Oximetry 98 07/26/22 09:45 Oxygen Delivery Method Room Air 07/26/22 09:45 Oxygen Flow Rate 0 07/26/22 09:45 Pain Level 2 07/26/22 09:45
[2022-07-26 10:23] LABS: Abs Immature Grans 0.04 10^3/uL (0.0-0.06); Absolute Basophil Count 0.06 10^3/uL (0.0-0.2); Absolute Eosinophil Count 0.22 10^3/uL (0.0-0.7); Absolute Lymphocyte Count 2.58 10^3/uL (1.2-3.4); Absolute Monocyte Count 0.69 10^3/uL (0.1-0.8); Absolute Neutrophil Count 3.54 10^3/uL (1.2-6.7); Basophils % 0.8; Eosinophils % 3.1; HCT 43.8 % (40.0-50.0); HGB 15.2 g/dL (13.5-17.5); Immature Grans % 0.6; Lactate 1.1 mmol/L (0.6-1.4); Lymphocytes % 36.2; MCHC 34.7 % (32.0-36.0); MCV 89 fL (80-95); MPV 10.1 fL (8.0-11.0); Monocytes % 9.7; Neutrophils % 49.6; Platelet Count 224 10^3/uL (130-400); RDW 12.4 % (11.8-14.1); RDW-SD 40.7 fL; WBC 7.13 10^3/uL (4.4-10.8)
[2022-07-26 10:40] LABS: Bilirubin Negative (Negative); Blood Trace-intact (Negative); Clarity Clear (Clear); Glucose Negative (Negative); Ketones Negative (Negative); Leukocyte Esterase Negative (Negative); Nitrite Negative (Negative); Urobilinogen 0.2 mg/dL (Up to 0.2); pH 6.5 (5-8)
[2022-07-26 10:44] LABS: ALT 46 U/L (16-63); AST 16 U/L (15-37); Albumin 4.2 g/dL (3.4-5.0); Alkaline Phosphatase 76 U/L (46-116); Anion Gap 7.1 mmol/L (3-11); BUN 20 mg/dL (7-18); Bilirubin, Total 0.6 mg/dL (0.2-1.0); CO2 27.9 mmol/L (21.0-32.0); Calcium 9.3 mg/dL (8.5-10.1); Chloride 101 mmol/L (98-107); Estimated GFR 87.24 (mL/min/1.73m2); Glucose 122 mg/dL (74-106); Lipase 46 U/L (16-77); Magnesium 1.9 mg/dL (1.8-2.4); Potassium 3.9 mmol/L (3.5-5.1); Sodium 136 mmol/L (136-145); Total Protein 7.6 g/dL (6.4-8.2)
[2022-07-26 10:49] LABS: WBC Negative HPF (0-5)
[2022-07-26 10:50] LABS: Bacteria Negative HPF (Negative); C & S Indicated? No; Casts Negative LPF (Negative); Crystals Negative HPF (Negative); Epithelial Cells Rare HPF (Negative); Mucus Negative (Negative)
[2022-07-26 12:28] VITALS: BP 128/70; PULSE 56; TEMP 37; O2SAT 97
== END 2022-07-26 12:30 | disposition home or self-care (01) ==
PROVIDERS: Emergency Provider Nurse Practitioner Family; PCP Family Medicine
DX: G89.18 Other acute postprocedural pain (principal); R39.89 Other symptoms and signs involving the genitourinary system
CPT/HCPCS: 36415; 80053; 83690; 99283; 81003; 81015; 83605; 83735; 85025

== ENCOUNTER 2022-12-25 02:45 | Emergency (ER) | payer OTHER, SELFPAY ==
--- NOTE | 2022-12-25 02:45 | DI.CT_ITS ---
Exam(s) CT ABDOMEN PELVIS W EXAM: CT ABDOMEN PELVIS W CLINICAL HISTORY: left lower quadrant pain; hx divertic and uro CA. TECHNIQUE: Imaging Protocol: Axial computed tomography images with coronal and sagittal reformatted images were created and reviewed CONTRAST MATERIAL: Intravenous: Omnipaque 350 Contrast volume:100 ml Oral: / no COMPARISON: CT CT ABDOMEN PELVIS WO/W from 09/14/2020 FINDINGS: ABDOMEN: Lung Bases: Normal where visualized. Liver: Normal density. No measurable mass. Gallbladder and biliary tract: No radiodense calculus or dilation. Pancreas: Normal density, no abnormal calcifications or inflammatory process. Spleen: Normal. Kidneys: Normal size, contour and axis. No radiodense stones or obstructive uropathy. No suspicious m asses seen. Adrenal glands: No masses seen. Abdominal Aorta: Abdominal portion non-dilated. Soft tissues: Unremarkable. PELVIS: Bladder: Previously noted bladder mass has been resected. No gross wall thickening. No calculi.No fo jesus mass. Bladder is partially obscured by artifact due to hip prosthesis. Bowel: No obstruction. No bowel wall thickening. Appendix normal. Normal quantity of stool. Peritoneal cavity: No ascites, collection or mesenteric inflammatory response. Bones: Left hip prosthesis. Reproductive organs: Within normal limits. Lymph nodes: Unremarkable. Impression: No acute abnormality.. RADIATION DOSE DELIVERED: 643.28mGy.cm Total DLP DATA REPOSITORY: All CT scans at this facility are submitted to the National Radiology Data Registry (NRDR) Dose Index Registry (DIR) with the [employer] (ACR). RADIATION OPTIMIZATION: All CT scans at this facility use at least one of these dose optimization te chniques: automated exposure control; mA and/or kV adjustment per patient size (includes targeted exa ms where dose is matched to clinical indication); or iterative reconstruction.
[2022-12-25 02:50] VITALS: BP 123/77; PULSE 68; RESP 18; TEMP 36.4; O2SAT 94
--- NOTE | 2022-12-25 03:01 | W.ED.GENAD ---
Discharge Plan Disposition Patient Disposition: Home Condition: Improving Discharge Details Chief Complaint: Abd Prob Clinical Impression: Abdominal pain Primary Care Provider: Antonino Sharma ED Provider: Cristhian Aguilera Home Meds and New Rx's Prescriptions: No Action One-A-Day Men's 50 Plus(vit K) 400-20-370 mcg tablet 1 tab PO DAILY omega 0-arn-ovu-fish oil [Fish Oil] 1,000 mg (120 mg-180 mg) capsule 1 cap PO DAILY ibuprofen 800 mg tablet 800 mg PO Q8H PRN (Reason: Pain) rosuvastatin 40 mg tablet 40 mg PO DAILY Qty: 90 3RF omeprazole 40 mg capsule,delayed release(DR/EC) 40 mg PO DAILY Qty: 90 3RF acetaminophen 500 mg tablet 1,000 mg PO Q8H PRN (Reason: pain) Qty: 90 3RF Discharge Instructions Instructions: Abdominal Pain (ED) Additional Instructions: Please follow-up with your primary care physician and urologist as scheduled. 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 No evidence of diverticulitis or colitis, no signs of urinary tract infection or hematuria. Patient has close follow-up with his urologist in January. Given home care instructions and return precautions HPI General Date/Time Provider Initiated Documentation: 12/25/22 02:51. 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 No urinary symptoms or back pain Related Data Home Medications Medication Instructions Recorded Confirmed jqlfauaycdxb-asd-wuaya acid-vit 1 tab PO DAILY 05/29/19 12/25/22 K-lycop 400 mcg-20 mcg-370 mcg tablet (One-A-Day Men's 50 Plus (with vitamin K)) omega 2-vsr-omc-fish oil 1,000 mg 1 cap PO DAILY 05/29/19 12/25/22 (120 mg-180 mg) capsule (Fish Oil) acetaminophen 500 mg tablet 1,000 mg PO Q8H PRN pain #90 tabs 07/27/20 12/25/22 omeprazole 40 mg capsule,delayed 40 mg PO DAILY #90 caps 02/19/22 12/25/22 release ibuprofen 800 mg tablet 800 mg PO Q8H PRN Pain 07/04/22 12/25/22 rosuvastatin 40 mg tablet 40 mg PO DAILY #90 tabs 07/04/22 12/25/22 Previous Rx's Medication Instructions Recorded acetaminophen 500 mg tablet 1,000 mg PO Q8H PRN pain #90 tabs 07/27/20 omeprazole 40 mg capsule,delayed 40 mg PO DAILY #90 caps 02/19/22 release rosuvastatin 40 mg tablet 40 mg PO DAILY #90 tabs 07/04/22 Allergies Allergy/AdvReac Type Severity Reaction Status Date / Time No Known Allergies Allergy Verified 07/26/22 09:50 General Stated Complaint: Abd Prob JONE: 4 Review of Systems Narrative: Review of Systems Constitutional: negative Eyes: negative ENT: negative Cardiovascular: negative Respiratory: negative Gastrointestinal: Normal pain, nausea : negative Musculoskeletal: negative Skin: negative Neurologic: negative Psych: negative PFSH All Active Problems (Updated 12/25/22 @ 04:54 by Cristhian Aguilera MD) Abdominal pain (Acute) Pain, foot (Acute) Tendinitis of ankle or foot (Acute) Dysesthesia (Acute) left fingers Left shoulder pain (Acute) Nicotine dependence (Acute) Personal history of nicotine dependence (Acute) 3.,1ppd, 30 plus yr pk yr hx Osteoarthritis of right hip (Acute) History of total right hip replacement (Acute 07/27/20) Hyperlipidemia (Acute) Medical History Cervicalgia Base of neck without deformity or radiculopathy Hx of gastroesophageal reflux (GERD) Urothelial carcinoma of bladder Family History Mother No problems noted. Father , age 74 Hyperlipidemia COPD (chronic obstructive pulmonary disease) Brother Alcohol abuse Substance abuse Son No problems noted. Social History Smoking/Tobacco Use Status: Current every day Tobacco Type: cigarettes Smoking packs per day: 1 Smoking cigarettes per day: 20.0 Tobacco: How many years used: 35 Quit status: considering quitting Second Hand Exposure: Yes Smoking risk assessment performed?: Yes Alcohol Intake: current Alcohol Intake frequency: holidays/special occasions only Alcohol type: beer Drug use: Daily Substance use type: marijuana Caregiver/Support person: No Household members: significant other and family Housing: apartment Communication Needs: None Do you need help understanding health information?: Rarely Pets and animals: Yes Pets and animals: dog(s) Sexually active: Yes Do you think of yourself as: straight/heterosexual Current gender identity: male What is your relationship status?: How often do you talk on the phone with friends or family?: three or more times per week How often do you get together with friends or relatives?: three or more times per week How often do you attend sikhism or latter-day services?: decline to answer Do you belong to any clubs or organized social groups?: no Panel score (0-1 are the most socially isolated patients): 1 What type of physical activity do you participate in: walking Duration: > 90 minutes/day Frequency: 5-6 times per week Dai/Zoroastrianism: None Special dai needs: No Seatbelt use: always Helmet use: Yes Helmet use: always 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 Do you feel safe at home: Yes Do you feel safe in your relationship?: Yes Exam Narrative Exam Narrative: Physical Examination General: alert, awake, cooperative, resting comfortably, no acute distress HEENT: normocephalic, atraumatic; PERRL, EOM intact, conjunctiva normal; no nasal discharge; moist mucous membranes, oral and pharyngeal mucosa normal, tolerating secretions Neck: supple, trachea midline; full ROM Chest: normal to inspection Respiratory: normal respiratory effort, speaking in full sentences, clear to auscultation, no wheezing, rales or rhonchi Cardiac: regular rate, regular rhythm, S1S2 intact, no murmurs rubs or gallops GI: abdomen soft, subjective discomfort in left lower quadrant, non-distended; no palpable mass or hepatosplenomegaly; no guarding or rebound Skin: no lesions, rashes or trauma appreciated Neuro: AAOx3, normal speech, moving all extremities Psych: Appropriate mood and affect Course Vital Signs Vital signs: Vital Signs Temperature 36.4 C L 12/25/22 02:50 Pulse 68 12/25/22 02:50 Respiratory Rate 18 12/25/22 02:50 Blood Pressure 123/77 12/25/22 02:50 Pulse Oximetry 94 12/25/22 02:50 Temperature 36.4 C L 12/25/22 02:50 Temperature Source Temporal Artery Scan 12/25/22 02:50 Pulse 68 12/25/22 02:50 Respiratory Rate 18 12/25/22 02:50 Respiratory Effort Normal, Non-Labored 12/25/22 02:52 Blood Pressure 123/77 12/25/22 02:50 Blood Pressure Position Sitting 12/25/22 02:50 Pulse Oximetry 94 12/25/22 02:50 Oxygen Delivery Method Room Air 12/25/22 02:50 Oxygen Flow Rate 0 12/25/22 02:50 Pain Level 7 12/25/22 02:52
[2022-12-25] MEDS: Normal Saline 1,000 ML 1000 ML IV (03:09)
[2022-12-25] MEDS: Ketorolac 15 MG/ML VIAL IVP (03:10)
[2022-12-25] MEDS: Ondansetron 4 MG/2 ML VIAL IVP (03:10)
[2022-12-25 03:20] LABS: Abs Immature Grans 0.02 10^3/uL (0.0-0.06); Absolute Basophil Count 0.06 10^3/uL (0.0-0.2); Absolute Eosinophil Count 0.14 10^3/uL (0.0-0.7); Absolute Lymphocyte Count 2.39 10^3/uL (1.2-3.4); Absolute Monocyte Count 0.53 10^3/uL (0.1-0.8); Absolute Neutrophil Count 3.37 10^3/uL (1.2-6.7); Basophils % 0.9; Eosinophils % 2.2; HCT 43.1 % (40.0-50.0); HGB 15.1 g/dL (13.5-17.5); Immature Grans % 0.3; Lymphocytes % 36.7; MCH 30.9 pg (27.0-33.0); MCV 88 fL (80-95); MPV 10.1 fL (8.0-11.0); Monocytes % 8.1; Neutrophils % 51.8; Platelet Count 217 10^3/uL (130-400); RBC 4.89 10^6/uL (4.36-5.78); RDW 11.9 % (11.8-14.1); RDW-SD 38.7 fL; WBC 6.51 10^3/uL (4.4-10.8)
[2022-12-25] MEDS: Omnipaque 350 MG/ML 100 ML BTL IJ (03:29)
[2022-12-25] MEDS: Normal Saline - Diluent 50 ML VIAL IJ (03:30)
[2022-12-25 03:35] LABS: ALT 36 U/L (16-63); AST 28 U/L (15-37); Albumin 4.3 g/dL (3.4-5.0); Alkaline Phosphatase 73 U/L (46-116); Anion Gap 9.2 mmol/L (3-11); BUN 13 mg/dL (7-18); Bilirubin, Total 1.2 mg/dL (0.2-1.0); CO2 25.8 mmol/L (21.0-32.0); Calcium 9.4 mg/dL (8.5-10.1); Chloride 105 mmol/L (98-107); Estimated GFR 87.24 (mL/min/1.73m2); Glucose 107 mg/dL (74-106); Potassium 4.1 mmol/L (3.5-5.1); Sodium 140 mmol/L (136-145); Total Protein 7.4 g/dL (6.4-8.2)
--- NOTE | 2022-12-25 04:20 | DI.VRAD_ITS ---
PROCEDURE INFORMATION: Exam: CT Abdomen And Pelvis With Contrast Exam date and time: 12/25/2022 3:31 AM Age: 57 years old Clinical indication: Abdominal pain; Localized; Left lower quadrant (llq); Prior surgery; Surgery date: 6+ months; Surgery type: Bladder surgery; Additional info: Left lower quadrant pain; HX divertic and uro CA TECHNIQUE: Imaging protocol: Computed tomography of the abdomen and pelvis with contrast. Radiation optimization: All CT scans at this facility use at least one of these dose optimization techniques: automated exposure control; mA and/or kV adjustment per patient size (includes targeted exams where dose is matched to clinical indication); or iterative reconstruction. Contrast material: OMNI 350; Contrast volume: 100 ml; Contrast route: INTRAVENOUS (IV); COMPARISON: CT ABDOMEN PELVIS WO/W 09/14/2020 8:43 AM FINDINGS: Liver: Normal. No mass. Gallbladder and bile ducts: Normal. No calcified stones. No ductal dilation. Pancreas: Normal. No ductal dilation. Spleen: Normal. No splenomegaly. Adrenal glands: Normal. No mass. Kidneys and ureters: Normal. No hydronephrosis. Stomach and bowel: Unremarkable. No obstruction. No mucosal thickening. Appendix: No evidence of appendicitis. Intraperitoneal space: Unremarkable. No free air. No significant fluid collection. Vasculature: Unremarkable. No abdominal aortic aneurysm. Lymph nodes: Unremarkable. No enlarged lymph nodes. Urinary bladder: Unremarkable as visualized. Reproductive: Unremarkable as visualized. Bones/joints: Unremarkable. No acute fracture. Soft tissues: Unremarkable. IMPRESSION: No acute findings. Dictated and Authenticated by: Israel Horowitz MD. Ordering:MAYITO Morrow MD
[2022-12-25 04:39] LABS: Bilirubin Negative (Negative); Blood Negative (Negative); Clarity Clear (Clear); Glucose Negative (Negative); Ketones Negative (Negative); Leukocyte Esterase Negative (Negative); Nitrite Negative (Negative); Specific Gravity <= 1.005 (1.005-1.025); Urobilinogen 0.2 mg/dL (Up to 0.2); pH 5.5 (5-8)
[2022-12-25 04:48] LABS: Bacteria Rare HPF (Negative); C & S Indicated? No; Crystals Negative HPF (Negative); Epithelial Cells Rare HPF (Negative); Mucus Negative (Negative); RBC 0-2 HPF (0-2); WBC Negative HPF (0-5)
== END 2022-12-25 05:15 | disposition home or self-care (01) ==
PROVIDERS: Emergency Provider Emergency Medicine; PCP Family Medicine
DX: R10.9 Unspecified abdominal pain (principal)
CPT/HCPCS: 80053; 96361; 96374; 96375; 99285; 74177; 81003; 81015; 85025; 99284; J1885; J2405; J3490

== ENCOUNTER 2023-03-26 08:13 | Emergency (ER) | payer OTHER, SELFPAY ==
[2023-03-26 08:16] VITALS: BP 119/46; PULSE 64; RESP 18; TEMP 36.6; O2SAT 98
--- NOTE | 2023-03-26 08:30 | DI.CT_ITS ---
Exam(s) CT ABDOMEN PELVIS W EXAM: CT ABDOMEN PELVIS W CLINICAL HISTORY: llq pain, left flank pain, s/p bladder bx 03/14. TECHNIQUE: Imaging Protocol: Axial computed tomography images with coronal and sagittal reformatted images were created and reviewed CONTRAST MATERIAL: Intravenous: Omnipaque 350 Contrast volume:100 ml Oral: / no COMPARISON: CT CT ABDOMEN PELVIS WO/W from 09/14/[address] ABDOMEN PELVIS W from 12/25/2022 FINDINGS: ABDOMEN and PELVIS: Lung Bases: Normal where visualized. Liver: Normal density. No measurable mass. Gallbladder and biliary tract: No radiodense calculus or dilation. Pancreas: Normal density. No abnormal calcifications or inflammatory process. No evidence of mass. Spleen: Normal. Kidneys: Normal size, contour and axis. No radiodense stones. No obstructive uropathy. No suspicious masses seen. Adrenal glands: No masses seen. Vasculature: Abdominal aorta non-dilated. Soft tissues: Unremarkable. Bladder: Nearly empty. Not well evaluated. Partially obscured by artifact from right hip prosthesis . Wall thickening noted. Bowel: No obstruction. No bowel wall thickening. Appendix normal. Peritoneal cavity: No ascites. No focal collection or mesenteric inflammatory response. Bones: Unremarkable for age. Reproductive organs: Within normal limits. Lymph nodes: Unremarkable. IMPRESSION:: Limited evaluation due of the bladder due to lack of distention and artifact from hip p rosthesis. Wall thickening is noted. RADIATION DOSE DELIVERED: Total DLP DATA REPOSITORY: All CT scans at this facility are submitted to the National Radiology Data Registry (NRDR) Dose Index Registry (DIR) with the [employer] (ACR). RADIATION OPTIMIZATION: All CT scans at this facility use at least one of these dose optimization te chniques: automated exposure control; mA and/or kV adjustment per patient size (includes targeted exa ms where dose is matched to clinical indication); or iterative reconstruction.
[2023-03-26 08:43] VITALS: PULSE 61; RESP 17
[2023-03-26 08:49] LABS: Abs Immature Grans 0.01 10^3/uL (0.0-0.06); Absolute Basophil Count 0.08 10^3/uL (0.0-0.2); Absolute Eosinophil Count 0.24 10^3/uL (0.0-0.7); Absolute Monocyte Count 0.72 10^3/uL (0.1-0.8); Absolute Neutrophil Count 3.06 10^3/uL (1.2-6.7); Basophils % 1.4; Eosinophils % 4.1; HCT 43.3 % (40.0-50.0); HGB 14.8 g/dL (13.5-17.5); Immature Grans % 0.2; Lymphocytes % 30.5; MCH 30.6 pg (27.0-33.0); MCHC 34.2 % (32.0-36.0); MCV 90 fL (80-95); MPV 9.9 fL (8.0-11.0); Monocytes % 12.2; Neutrophils % 51.6; Platelet Count 233 10^3/uL (130-400); RBC 4.84 10^6/uL (4.36-5.78); RDW 12.1 % (11.8-14.1); RDW-SD 39.8 fL; WBC 5.91 10^3/uL (4.4-10.8)
[2023-03-26 08:50] VITALS: PULSE 61; RESP 22
[2023-03-26 08:56] LABS: Bilirubin Negative (Negative); Blood Moderate (Negative); Clarity Clear (Clear); Glucose Negative (Negative); Ketones Negative (Negative); Leukocyte Esterase Small (Negative); Nitrite Negative (Negative); Specific Gravity >= 1.030 (1.005-1.025); Urobilinogen 0.2 mg/dL (Up to 0.2)
[2023-03-26 09:07] LABS: Bacteria Rare HPF (Negative); C & S Indicated? Yes; Casts 0-2 Hyaline LPF (Negative); Crystals Negative HPF (Negative); Epithelial Cells Rare HPF (Negative); Mucus Negative (Negative)
[2023-03-26] MEDS: Omnipaque 350 MG/ML 100 ML BTL IJ (09:09)
[2023-03-26] MEDS: Normal Saline - Diluent 50 ML VIAL IJ (09:10)
[2023-03-26 09:14] LABS: ALT 33 U/L (16-63); AST 19 U/L (15-37); Albumin 4.2 g/dL (3.4-5.0); Alkaline Phosphatase 69 U/L (46-116); BUN 22 mg/dL (7-18); Chloride 105 mmol/L (98-107); Glucose 116 mg/dL (74-106); Lipase 42 U/L (16-77); Potassium 4.5 mmol/L (3.5-5.1); Sodium 140 mmol/L (136-145); Total Protein 7.7 g/dL (6.4-8.2)
--- NOTE | 2023-03-26 14:50 | ED.GENADUL_ITS ---
Discharge Plan Disposition Patient Disposition: Home Discharge Details Clinical Impression: Cystitis Primary Care Provider: Kody Huerta ED Provider: Alessia Vera Home Meds and New Rx's Prescriptions: New ciprofloxacin HCl 500 mg tablet 500 mg PO BID Qty: 14 0RF Continued One-A-Day Men's 50 Plus(vit K) 400-20-370 mcg tablet 1 tab PO DAILY omega 8-zzm-kex-fish oil [Fish Oil] 1,000 mg (120 mg-180 mg) capsule 1 cap PO DAILY ibuprofen 800 mg tablet 800 mg PO Q8H PRN (Reason: Pain) rosuvastatin 40 mg tablet 40 mg PO DAILY Qty: 90 3RF omeprazole 40 mg capsule,delayed release(DR/EC) 40 mg PO DAILY Qty: 90 3RF acetaminophen 500 mg tablet 1,000 mg PO Q8H PRN (Reason: pain) Qty: 90 3RF Discharge Instructions Additional Instructions: Take the antibiotic as prescribed Yogurt daily while on antibiotics Take Tylenol and ibuprofen as needed for discomfort and return earlier with fever, chills, or with any new or worsening complaints, follow-up with Dr. Huber, he has been involved in your care today Referrals: Kody Huerta, GLEN [Primary Care Provider] - Albaro Huber MD [[facility] STAFF PHYSICIAN] - Medical Decision Making 58-year-old male with history of bladder cancer presenting with left lower quadrant pain with radiation to flank. Denies fever or chills, will appearance Secondary to medical history and recent surgery, CT abdomen pelvis was ordered, this does not show evidence of significant acute abnormality, some bladder wall thickening noted As patient's bladder was incompletely visualized and patient is postoperative, I did discuss the case with Dr. Huber, urology, recommendation to start patient on ciprofloxacin 500 twice daily for [address] Huber will follow-up with patient Of note, I spent approximately 5 minutes reviewing patient's recent surgical intervention Patient appears well, he is able to tolerate p.o. He will be discharged home in stable condition with stable vitals, labs reviewed Return precautions discussed and patient and expressed understanding HPI General Date/Time Provider Initiated Documentation: 03/26/23 08:30 . HPI Narrative: This 58-year-old male presents with left lower quadrant pain radiating to his left flank that began last evening. States his symptoms are similar to her prior diagnosis of diverticulitis. Is currently being treated for bladder cancer and status post bladder biopsy with mitomycin instillation on 03/14/[address] Huber, urology. States felt as though symptoms are resolving in regard to this. Denies fever or chills. Denies nausea or vomiting. Denies known exacerbating or alleviating factors. Denies dysuria or frequency new to him. Denies hematuria. Related Data Home Medications Medication Instructions Recorded Confirmed kcepurdcfkrg-fpw-lhcfg acid-vit 1 tab PO DAILY 05/29/19 03/26/23 K-lycop 400 mcg-20 mcg-370 mcg tablet (One-A-Day Men's 50 Plus (with vitamin K)) omega 8-kxk-uzl-fish oil 1,000 mg 1 cap PO DAILY 05/29/19 03/26/23 (120 mg-180 mg) capsule (Fish Oil) acetaminophen 500 mg tablet 1,000 mg (2 x 500 mg) PO Q8H PRN 07/27/20 03/26/23 pain #90 tabs ibuprofen 800 mg tablet 800 mg PO Q8H PRN Pain 07/04/22 03/26/23 rosuvastatin 40 mg tablet 40 mg PO DAILY #90 tabs 07/04/22 03/26/23 omeprazole 40 mg capsule,delayed 40 mg PO DAILY #90 caps 03/06/23 03/26/23 release ciprofloxacin HCl 500 mg tablet 500 mg PO BID #14 tabs 03/26/23 Previous Rx's Medication Instructions Recorded acetaminophen 500 mg tablet 1,000 mg (2 x 500 mg) PO Q8H PRN 07/27/20 pain #90 tabs rosuvastatin 40 mg tablet 40 mg PO DAILY #90 tabs 07/04/22 omeprazole 40 mg capsule,delayed 40 mg PO DAILY #90 caps 03/06/23 release ciprofloxacin HCl 500 mg tablet 500 mg PO BID #14 tabs 03/26/23 Allergies Allergy/AdvReac Type Severity Reaction Status Date / Time No Known Allergies Allergy Verified 03/26/23 08:21 General Stated Complaint: Abd Prob JONE: 3 PFSH All Active Problems (Updated 03/26/23 @ 10:32 by ALLEN Norwood) Cystitis (Acute) Tendinitis of ankle or foot (Acute) Dysesthesia (Acute) left fingers Nicotine dependence (Acute) Personal history of nicotine dependence (Acute) 3.,1ppd, 30 plus yr pk yr hx Hyperlipidemia (Acute) Medical History (Updated 03/26/23 @ 10:32 by ALLEN Norwood) Hx of gastroesophageal reflux (GERD) Cervicalgia Base of neck without deformity or radiculopathy Urothelial carcinoma of bladder Surgical History History of total right hip replacement (07/27/20) Family History Mother No problems noted. Father , age 74 Hyperlipidemia COPD (chronic obstructive pulmonary disease) Brother Alcohol abuse Substance abuse Son No problems noted. Social History Smoking/Tobacco Use Status: Current every day Tobacco Type: cigarettes Smoking packs per day: 1 Smoking cigarettes per day: 20.0 Tobacco: How many years used: 35 Quit status: considering quitting Second Hand Exposure: Yes Smoking risk assessment performed?: Yes Alcohol Intake: current Alcohol Intake frequency: holidays/special occasions only Alcohol type: beer Drug use: Daily Substance use type: marijuana Details: marijuana last use t-1 Caregiver/Support person: No Household members: significant other and family Housing: apartment Communication Needs: None Do you need help understanding health information?: Rarely Pets and animals: Yes Pets and animals: dog(s) Sexually active: Yes Do you think of yourself as: straight/heterosexual Current gender identity: male What is your relationship status?: How often do you talk on the phone with friends or family?: three or more times per week How often do you get together with friends or relatives?: three or more times per week How often do you attend jew or restorationist services?: decline to answer Do you belong to any clubs or organized social groups?: no Panel score (0-1 are the most socially isolated patients): 1 What type of physical activity do you participate in: walking Duration: > 90 minutes/day Frequency: 5-6 times per week Dai/Baptism: None Special dai needs: No Seatbelt use: always Helmet use: Yes Helmet use: always Drive intox or ride w/intox pile driver: No Do you feel safe at home: Yes Do you feel safe in your relationship?: Yes Course Vital Signs Vital signs: Vital Signs Temperature 36.6 C 03/26/23 08:16 Pulse 64 03/26/23 08:16 Respiratory Rate 18 03/26/23 08:16 Blood Pressure 119/46 L 03/26/23 08:16 Pulse Oximetry 98 03/26/23 08:16 Temperature 36.6 C 03/26/23 08:16 Temperature Source Oral 03/26/23 08:16 Pulse 64 03/26/23 08:16 Pulse 61 03/26/23 08:50 Respiratory Rate 22 03/26/23 08:50 Respiratory Effort Normal 03/26/23 08:19 Blood Pressure 119/46 L 03/26/23 08:16 Blood Pressure Position Sitting 03/26/23 08:16 Pulse Oximetry 98 03/26/23 08:16 Oxygen Delivery Method Room Air 03/26/23 08:16 Oxygen Flow Rate 0 03/26/23 08:16 Pain Level 5 03/26/23 08:16 Lab/Test Results Lab/Test Results: 03/26/23 08:46 Urine - Reflex from Ua Urine Culture - Pending Laboratory Tests Range/Units 03/26/23 03/26/23 08:43 08:46 WBC (4.4-10.8) 10^3/uL 5.91 RBC (4.36-5.78) 10^6/uL 4.84 Hgb (13.5-17.5) g/dL 14.8 Hct (40.0-50.0) % 43.3 MCV (80-95) fL 90 MCH (27.0-33.0) pg 30.6 MCHC (32.0-36.0) % 34.2 RDW (11.8-14.1) % 12.1 Plt Count (130-400) 10^3/uL 233 MPV (8.0-11.0) fL 9.9 Immature Gran % 0.2 Neutrophils % 51.6 Lymphocytes % 30.5 Monocytes % 12.2 Eosinophils % 4.1 Basophils % 1.4 Nucleated RBC % (0.0-0.3) % 0.0 Absolute Neutrophils (1.2-6.7) 10^3/uL 3.06 Absolute Lymphocytes (1.2-3.4) 10^3/uL 1.80 Absolute Monocytes (0.1-0.8) 10^3/uL 0.72 Absolute Eosinophils (0.0-0.7) 10^3/uL 0.24 Absolute Basophils (0.0-0.2) 10^3/uL 0.08 Sodium (136-145) mmol/L 140 Potassium (3.5-5.1) mmol/L 4.5 Chloride (98-107) mmol/L 105 Carbon Dioxide (21.0-32.0) mmol/L 28.0 Anion Gap (3-11) mmol/L 7.0 BUN (7-18) mg/dL 22 H Creatinine (0.70-1.30) mg/dL 1.0 Est GFR (CKD-EPI 2020) (mL/min/1.73m2) 86.70 Glucose (74-106) mg/dL 116 H Calcium (8.5-10.1) mg/dL 10.0 Total Bilirubin (0.2-1.0) mg/dL 1.0 AST (15-37) U/L 19 ALT (16-63) U/L 33 Alkaline Phosphatase (46-116) U/L 69 Total Protein (6.4-8.2) g/dL 7.7 Albumin (3.4-5.0) g/dL 4.2 Lipase (16-77) U/L 42 Urine Color (Yellow) Yellow Urine Clarity (Clear) Clear Urine pH (5-8) 6.0 Ur Specific [place] (1.005-1.025) >= 1.030 H Urine Protein (Negative) mg/dL 100 H Urine Ketones (Negative) mg/dL Negative Urine Blood (Negative) Moderate H Urine Nitrite (Negative) Negative Urine Bilirubin (Negative) Negative Urine Urobilinogen (Up to 0.2) mg/dL 0.2 Ur Leukocyte Esterase (Negative) Small H Urine RBC (0-2) HPF 10-20 H Urine WBC (0-5) HPF 3-5 Ur Epithelial Cells (Negative) HPF Rare Urine Crystals (Negative) HPF Negative Urine Bacteria (Negative) HPF Rare Urine Casts (Negative) LPF 0-2 Hyaline Urine Mucus (Negative) Negative Ur Culture Indicated? Yes Urine Glucose (Negative) mg/dL Negative
== END 2023-03-26 11:07 | disposition home or self-care (01) ==
PROVIDERS: Emergency Provider Physician Assistant; PCP Nurse Practitioner Family
DX: R10.32 Left lower quadrant pain (principal); N30.90 Cystitis, unspecified without hematuria; C67.9 Malignant neoplasm of bladder, unspecified
CPT/HCPCS: 36415; 80053; 83690; 99285; 74177; 81003; 81015; 85025; 87086; J3490

== ENCOUNTER 2023-04-12 01:58 | Outpatient (CLI) | payer OTHER, SELFPAY ==
[2023-04-12 08:16] LABS: Calculated LDL 86 mg/dL (<100); Cholesterol 148 mg/dL (<200); HDL Cholesterol 54 mg/dL (40-60); Triglyceride 41 mg/dL (<150)
== END 2023-04-12 01:59 | disposition home or self-care (01) ==
LOC: LBO 01:59
PROVIDERS: PCP Nurse Practitioner Family; Visit Provider Nurse Practitioner Family
DX: E78.5 Hyperlipidemia, unspecified (principal)
CPT/HCPCS: 36415; 80061

== ENCOUNTER 2023-04-18 19:12 | Outpatient (REF) | payer OTHER, SELFPAY | END 2023-04-18 19:13 | disposition home or self-care (01) | LOC: LBN 19:12 | PROVIDERS: PCP Nurse Practitioner Family; Visit Provider Urology | DX: R30.0 Dysuria (principal); R39.15 Urgency of urination | CPT/HCPCS: 87086 ==

== ENCOUNTER 2023-04-30 08:06 | Day surgery (SDC) | payer OTHER, SELFPAY ==
--- NOTE | 2023-04-30 08:46 | W.COLOREPORT ---
Date of service: 04/30/23 Time of Service: 09:47 Colonoscopy Report Procedure Description: PROCEDURES PERFORMED: 1. Colonoscopy PREOPERATIVE DIAGNOSIS: Screening colonoscopy POSTOPERATIVE DIAGNOSIS: Hyperplastic sigmoid/rectal polyps SURGEON: Tanvir Ritchie MD INDICATION for procedure: The patient is a 58-year-old man who is overdue for a screening colonoscopy. Coincidentally, he has been having on and off cramping abdominal discomfort in the left lower quadrant and some on and off rectal bleeding. No family history of colon cancer. FINDINGS: Normal terminal ileum. I did not appreciate any obvious diverticular disease. There is no inflammation. The sigmoid colon is notably redundant and had a couple of sharp turns and almost kinks in it. However there is no stricture and no obvious explanation or reason why there would be kinking(no tumors and no diverticulosis). In the distal sigmoid and rectum are multiple, flat, hyperplastic?appearing polyps and 3 were removed with cold forceps technique to confirm hyperplastic histology. SURVEILLANCE-INTERVAL/FOLLOW-UP: 10 years. He can consider outpatient follow-up to discuss his left lower quadrant discomfort and what options might exist. He may be having intermittent volvulus of the segment causing his symptoms and surgical intervention may have a role. Specimens: None EBL: Minimal COMPLICATIONS: None QUALITY of prep: Excellent Procedure in detail: The patient gave written consent and was in agreement with the indications, the potential risks as well as the benefits of the procedure. They were taken to the endoscopy suite and laid in the left lateral decubitus position. A timeout was performed and anesthesia was administered which was tolerated well. I started the procedure. Digital rectal and visual examination was performed and grossly within normal limits. A well-lubricated flexible colonoscope was then introduced and passed without any notable difficulty all the way to the cecum identified by the ileocecal valve and the appendiceal orifice. The terminal ileum was briefly intubated and looked normal visually. The scope was then slowly withdrawn with the above-noted findings. The patient tolerated the procedure well and was taken to the PACU in hemodynamically stable condition.
--- NOTE | 2023-04-30 08:48 | PDOC.DSDIS_ITS ---
Date of service: 04/30/23 Time of Service: 08:48 Discharge Plan Disposition Patient Disposition: Home Condition: Good Discharge Details Attending Provider: Jeffrey Ritchie Primary Care Provider: Kody Huerta Home Meds and New Rx's Prescriptions: No Action One-A-Day Men's 50 Plus(vit K) 400-20-370 mcg tablet 1 tab PO DAILY omega 6-gfw-xni-fish oil [Fish Oil] 1,000 mg (120 mg-180 mg) capsule 1 cap PO DAILY ibuprofen 800 mg tablet 800 mg PO Q8H PRN (Reason: Pain) rosuvastatin 40 mg tablet 40 mg PO DAILY Qty: 90 3RF polyethylene glycol 3350 17 gram/dose powder 238 g PO ONCE Qty: 238 0RF Rx Instructions: take per colonoscopy instructions bisacodyl [Dulcolax (bisacodyl)] 5 mg tablet,delayed release (DR/EC) 5 mg PO ONCE Qty: 4 0RF Rx Instructions: take per colonoscopy instructions oxybutynin chloride 5 mg tablet extended release 24hr 5 mg PO DAILY Qty: 30 1RF omeprazole 40 mg capsule,delayed release(DR/EC) 40 mg PO DAILY Qty: 90 3RF acetaminophen 500 mg tablet 1,000 mg PO Q8H PRN (Reason: pain) Qty: 90 3RF Discharge Instructions Additional Instructions: FINDINGS: There is a loop of your colon that seems to be partially twisting and that may be contributing to the cramping, episodic pain you sometimes get. There were otherwise no polyps found. There was no inflammation. No tumors. You can follow-up in the office to discuss your symptoms further. This is optional. Call [facility] and ask to have a follow-up visit with Dr. Ritchie if you want to discuss further. Stand Alone Forms: Colonoscopy Post Instructions Activity:: Activity as Tolerated Diet:: As Tolerated
[2023-04-30 08:50] VITALS: BP 115/65; PULSE 57; RESP 16; TEMP 36.4; O2SAT 100
[2023-04-30] MEDS: Lactated Ringers 1,000 ML 80 ML IV (08:58)
--- NOTE | 2023-04-30 09:15 | W.ANESPRE ---
General Info Date of Service Date Performed: 04/30/23 Height: 5 ft 7 in Weight: 72.6 kg Body Mass Index (BMI): 25.0 Surgical Procedure: Operation Date: 04/30/23 09:50 Proposed Procedure Side Surgeon p Colonoscopy Jeffrey Ritchie MD Meds Allergies and Home Medications Allergies Allergy/AdvReac Type Severity Reaction Status Date / Time No Known Allergies Allergy Verified 04/30/23 08:41 Home Medication Medication Instructions Recorded ypqrkiccoqiy-sjs-fyxas acid-vit 1 tab PO DAILY 05/29/19 K-lycop 400 mcg-20 mcg-370 mcg tablet (One-A-Day Men's 50 Plus (with vitamin K)) omega 8-mfk-ulr-fish oil 1,000 mg 1 cap PO DAILY 05/29/19 (120 mg-180 mg) capsule (Fish Oil) acetaminophen 500 mg tablet 1,000 mg (2 x 500 mg) PO Q8H PRN 07/27/20 pain #90 tabs ibuprofen 800 mg tablet 800 mg PO Q8H PRN Pain 07/04/22 rosuvastatin 40 mg tablet 40 mg PO DAILY #90 tabs 07/04/22 omeprazole 40 mg capsule,delayed 40 mg PO DAILY #90 caps 03/06/23 release bisacodyl 5 mg tablet,delayed 5 mg PO ONCE colonscopy bowel prep 04/11/23 release (Dulcolax (bisacodyl)) #4 tabs polyethylene glycol 3350 17 238 g PO ONCE colonoscopy prep 04/11/23 gram/dose oral powder #238 grams oxybutynin chloride 5 mg 5 mg PO DAILY #30 tabs 04/18/23 tablet,extended release 24 hr Current Visit Medications: Current Medications Generic Name Dose Route Start Last Admin Trade Name Freq PRN Reason Stop Dose Admin Ringer's Solution 1,000 mls @ 80 mls/hr 04/30/23 06:00 04/30/23 08:58 IV 04/30/23 23:59 80 mls/hr INFUSION BETH Administration IV Miscellaneous Supplies 1 each 04/30/23 06:00 Iv Access IV 04/30/23 23:59 DIRECTED BETH Sodium Chloride 0 ml 04/30/23 06:00 Normal Saline Flush 10 Ml Syr IV 04/30/23 23:59 PRN PRN Sodium Chloride 0 ml 04/30/23 06:00 Normal Saline 10 Ml Vial IJ 04/30/23 23:59 DIRECTED PRN Sterile Water 0 ml 04/30/23 06:00 Water,Injection,Sterile 10 Ml Vial IJ 04/30/23 23:59 DIRECTED PRN PFSH Active Problems Active Problems: Problem Status Onset Code LLQ pain R10.32 Tendinitis of ankle or foot M77.50 Dysesthesia R20.8 Nicotine dependence F17.200 Personal history of nicotine dependence Z87.891 Hyperlipidemia E78.5 Medical History Medical History Hx of gastroesophageal reflux (GERD) Cervicalgia Base of neck without deformity or radiculopathy Urothelial carcinoma of bladder Medical History Comments:: daily taylor, last t-1 Surgical History Surgical History History of total right hip replacement (07/27/20) Tobacco Smoking/Tobacco Use Status: Current every day Tobacco Type: cigarettes Smoking packs per day: 1 Smoking cigarettes per day: 20.0 Passive smoking exposure: Yes Second hand exposure: Yes Alcohol Alcohol Intake: current Alcohol intake frequency: holidays/special occasions only Alcohol type: beer Substance Use Substance use: Daily Substance use type: marijuana Details: marijuana last use t-1 Vital Signs and Lab Results Vital Signs Most Recent Vital Signs in EMR: Most Recent Vital Signs Temp Pulse Resp BP Pulse Ox 36.4 C L 57 L 16 115/65 100 04/30/23 08:50 04/30/23 08:50 04/30/23 08:50 04/30/23 08:50 04/30/23 08:50 Lab Results Blood Type / Crossmatch: No Data to Display Complete Blood Count: No Data to Display Complete Metabolic Panel: No Data to Display Liver Function Panel: No Data to Display Coagulation Panel: No Data to Display Cardiac Panel: No Data to Display Arterial Blood Gas: No Data to Display Venous Blood Gas: No Data to Display Pancreas Panel: No Data to Display Thyroid Panel: No Data to Display Infectious Disease: No Data to Display Blood Cultures: No Data to Display Toxicology Panel: No Data to Display Imaging and Studies Imaging and Studies Study information below may be from another EMR and interpreted by another provider. Please see original notes in EMR for more complete details. EKG Summary: 12/31: sinus elsy. Anesthesia Assessment and Plan Anesthesia History Personal History: No History of Anesthesia Complications Family History: No Family History of Anesthesia Complications Exercise Tolerance Exercise Tolerance: Metabolic Equivalents>4 Cardiac & Pulmonary Exam Cardiac Exam: Normal S1/S2 Heart Sounds Pulmonary Exam: Clear Bilateral Breath Sounds Implantable Cardiac Device Does patient have a Pacemaker or an ICD?: No Airway Exam Known Difficult Airway: No Mallampati Class: 2 Mouth Opening: Normal (> 3cm) Thyromental Distance: Greater than 3 cm Neck Range of Motion: Full ROM Neck Circumference: Normal Teeth Condition: Loose or Chipped ASA Classification ASA Score: ASA 3 Emergency Case?: No NPO Status NPO Status: NPO Clears >2 hours, Solids >8 hours Anesthesia Plan Resuscitation Status: Full Code Anesthesia Technique: General Anesthesia Airway Planned: Natural Airway Monitors Used: Standard Monitors
[2023-04-30 09:17] VITALS: BMI 25.0
--- NOTE | 2023-04-30 09:38 | BOWEL_PTH ---
PATIENT: Hayes Grijalva LOC: [facility] U#:[id number] AGE/SX: 58/M ROOM: RE04/30/[address]: Jeffrey Ritchie : 1965 BED: DIS: 04/30/2023 SPEC #: [id number] RECD: 04/30/23 12:47 STATUS: DIDI ULLOA #: [id number] TAE: 04/30/23 09:[address]: Jeffrey Ritchie DEPT: Surgical Specimen RECD BY: Alessia Newton ENTERED: 04/30/23 12:47 SP TYPE: Bowel OTHR DR: Kody Huerta, [employer]PARAT[employer] ENGINEERING TECHNOLOGIST Tissues: 1 - BIOPSY BOWEL Procedures: GROSS AND MICRO LEVEL 4 Comments: [id number]
[2023-04-30 09:51] VITALS: BP 103/68; PULSE 56; RESP 18; TEMP 36.4; O2SAT 99
[2023-04-30 10:13] VITALS: BP 123/75; PULSE 64; RESP 18; TEMP 35.6; O2SAT 100
--- NOTE | 2023-04-30 10:55 | W.ANESPOSTOP ---
Postoperative Evaluation Date, Time and Location Date Performed: 04/30/23 Time Performed: 09:55 Patient Location: Day Surgery Unit Vital Signs Most Recent Imported Vital Signs: Most Recent Vital Signs Temp Pulse Resp BP Pulse Ox 35.6 C L 64 18 123/75 100 04/30/23 10:13 04/30/23 10:13 04/30/23 10:13 04/30/23 10:13 04/30/23 10:13 Pain Score Most Recent Pain Score: Most Recent Pain Score Pain Level 0 04/30/23 09:51 Assessment Mental Status: Awake (Alert & Oriented to Patient Baseline) Airway and Respiratory Function: Patent airway with normal (patient baseline) respiratory exam Cardiovascular Function: Hemodynamically Stable Hydration Status: Adequately Hydrated Nausea & Vomiting: No Nausea or Vomiting Pain: Pt. Denies Any Pain Peripheral Nerve Block: Patient did not receive a nerve block
== END 2023-04-30 10:28 | disposition home or self-care (01) ==
PROVIDERS: PCP Nurse Practitioner Family; Visit Provider Student in an Organized Health Care Education/Training Program
PROC: 0DJD8ZZ Inspection of Lower Intestinal Tract, Via Natural or Artificial Opening Endoscopic (ICD-10-PCS; CPT 45378; principal; 2023-04-30 09:45)
DX: Z12.11 Encounter for screening for malignant neoplasm of colon (principal); K63.5 Polyp of colon; R10.32 Left lower quadrant pain; F17.200 Nicotine dependence, unspecified, uncomplicated; K63.89 Other specified diseases of intestine
CPT/HCPCS: 45380; 00123; 88305; J2001

== ENCOUNTER 2023-05-29 09:55 | Emergency (ER) | payer OTHER, SELFPAY ==
[2023-05-29] VITALS (9 sets, daily range): BP systolic 108–142; BP diastolic 45–71; PULSE 45–94; RESP 16–19; TEMP 36.3–36.8; O2SAT 60–99
--- NOTE | 2023-05-29 09:58 | ED.GENADUL_ITS ---
HPI General Date/Time Provider Initiated Documentation: 05/29/23 09:58 . HPI Narrative: 5 patient presents to the emergency department complaining of right lower abdominal pain and urinary urgency inability to urinate since last night. Reports chills but no fevers states that he urinated a fleshy yellow material. Patient has a history of bladder cancer patient has intra vesicle mithramycin given. States that since then has been getting frequently urinary infections and pain. Denies any nausea denies any vomiting denies any flank pain Related Data Home Medications Medication Instructions Recorded Confirmed zeurgygeutmt-vtg-ichti acid-vit 1 tab PO DAILY 05/29/19 04/30/23 K-lycop 400 mcg-20 mcg-370 mcg tablet (One-A-Day Men's 50 Plus (with vitamin K)) omega 8-dtn-tjb-fish oil 1,000 mg 1 cap PO DAILY 05/29/19 04/30/23 (120 mg-180 mg) capsule (Fish Oil) acetaminophen 500 mg tablet 1,000 mg (2 x 500 mg) PO Q8H PRN 07/27/20 04/30/23 pain #90 tabs rosuvastatin 40 mg tablet 40 mg PO DAILY #90 tabs 07/04/22 04/30/23 omeprazole 40 mg capsule,delayed 40 mg PO DAILY #90 caps 03/06/23 04/30/23 release bisacodyl 5 mg tablet,delayed 5 mg PO ONCE colonscopy bowel prep 04/11/2304/30 release (Dulcolax (bisacodyl)) #4 tabs polyethylene glycol 3350 17 238 g PO ONCE colonoscopy prep 04/11/23 04/30/23 gram/dose oral powder #238 grams oxybutynin chloride 5 mg 5 mg PO DAILY #30 tabs 04/18/23 04/30/23 tablet,extended release 24 hr ibuprofen 800 mg tablet See Rx Instructions .Route 05/04/23 .COMPLEX #90 tabs amoxicillin 875 mg-potassium 1 tab PO BID #14 tabs 05/29/23 clavulanate 125 mg tablet Previous Rx's Medication Instructions Recorded acetaminophen 500 mg tablet 1,000 mg (2 x 500 mg) PO Q8H PRN 07/27/20 pain #90 tabs rosuvastatin 40 mg tablet 40 mg PO DAILY #90 tabs 07/04/22 omeprazole 40 mg capsule,delayed 40 mg PO DAILY #90 caps 03/06/23 release bisacodyl 5 mg tablet,delayed 5 mg PO ONCE colonscopy bowel prep 04/11/23 release (Dulcolax (bisacodyl)) #4 tabs polyethylene glycol 3350 17 238 g PO ONCE colonoscopy prep 04/11/23 gram/dose oral powder #238 grams oxybutynin chloride 5 mg 5 mg PO DAILY #30 tabs 04/18/23 tablet,extended release 24 hr ibuprofen 800 mg tablet See Rx Instructions .Route 05/04/23 .COMPLEX #90 tabs amoxicillin 875 mg-potassium 1 tab PO BID #14 tabs 05/29/23 clavulanate 125 mg tablet Allergies Allergy/AdvReac Type Severity Reaction Status Date / Time No Known Allergies Allergy Verified 04/30/23 08:41 General JONE: 3 Review of Systems Narrative: Review of Systems: Constitutional: No fevers, chills, sweats Eye: No recent visual problems ENT: No ear pain, nasal congestion, sore throat Respiratory: No shortness of breath, cough Cardiovascular: No Chest pain, palpitations, syncope Gastrointestinal: No nausea, vomiting, diarrhea Genitourinary: No hematuria Steven/Lymph: Negative for bruising tendency, swollen lymph glands Endocrine: Negative for excessive thirst, excessive hunger Musculoskeletal: No back pain, neck pain, joint pain, muscle pain, decreased range of motion Integumentary: No rash, pruritus, abrasions Neurologic: Alert & oriented X 4 Psychiatric: No anxiety, depression PFSH All Active Problems (Updated 05/29/23 @ 12:36 by Quan Quiles MD) Bladder cancer (Acute) Urinary tract infection (Acute) LLQ pain (Acute) Tendinitis of ankle or foot (Acute) Dysesthesia (Acute) left fingers Nicotine dependence (Acute) Personal history of nicotine dependence (Acute) 3.,1ppd, 30 plus yr pk yr hx Hyperlipidemia (Acute) Medical History Hx of gastroesophageal reflux (GERD) Cervicalgia Base of neck without deformity or radiculopathy Urothelial carcinoma of bladder Surgical History History of total right hip replacement (03/17/21) Family History Mother No problems noted. Father , age 74 Hyperlipidemia COPD (chronic obstructive pulmonary disease) Brother Alcohol abuse Substance abuse Son No problems noted. Social History Smoking/Tobacco Use Status: Current every day Tobacco Type: cigarettes Smoking packs per day: 1 Smoking cigarettes per day: 20.0 Tobacco: How many years used: 35 Quit status: considering quitting Second Hand Exposure: Yes Smoking risk assessment performed?: Yes Alcohol Intake: current Alcohol Intake frequency: holidays/special occasions only Alcohol type: beer Drug use: Daily Substance use type: marijuana Details: marijuana last use t-1 Caregiver/Support person: No Household members: significant other and family Housing: apartment Communication Needs: None Do you need help understanding health information?: Rarely Pets and animals: Yes Pets and animals: dog(s) Sexually active: Yes Do you think of yourself as: straight/heterosexual Current gender identity: male What is your relationship status?: How often do you talk on the phone with friends or family?: three or more times per week How often do you get together with friends or relatives?: three or more times per week How often do you attend yarsanism or episcopalian services?: decline to answer Do you belong to any clubs or organized social groups?: no Panel score (0-1 are the most socially isolated patients): 1 What type of physical activity do you participate in: walking Duration: > 90 minutes/day Frequency: 5-6 times per week Dai/Confucianism: None Special dai needs: No Seatbelt use: always Helmet use: Yes Helmet use: always Drive intox or ride w/intox service car driver: No Do you feel safe at home: Yes Do you feel safe in your relationship?: Yes Additional Social history: Unable to assess privately Exam Narrative Exam Narrative: Exam; vitals signs as reported above normal Constitutional; In no acute distress, afebrile General: cooperative, healthy appearing, comfortable and no acute distress HEENT: Head: normal to inspection, no palpable skull fracture and normocephalic atraumatic Eyes: : appearance normal, both eyes and all related structures EOM intact bilaterally Pupils: PERRL : conjunctiva normal Direct ophthalmoscopy: normal light reflex, normal conjunctiva, normal visual acuity Ears: Normal TM, normal external canal Nose: normal no rhinorreha Neck no JVD, supple non tender Neck: normal visual inspection, full ROM and no lymphadenopathy Chest: normal inspection of the chest Respiratory : normal respiratory effort and able to speak in complete sentences no wheezing no rales Cardio Rate: regular rate, rhythm: regular rhythm normal heart sounds S1 and S2 no murmurs, gallops, or rubs GI : normal to inspection, normal bowel sounds, soft, non tender, non distended, no organomegaly Back/Spine/ no CVA tenderness Thoracic/Lumbar Spine: no tenderness or deformities Skin no rashes or lesions Neuro: patient alert oriented x 4 and no meningeal signs, Cranial Nerves: CN's II-XI intact bilaterally, Cognition: normal cognition, Speech: speech normal, Gait: normal gait, Depp tendon reflexes normal 2+ muscle strength 5/5 bilaterally Extremities, no edema, full range of motion, normal strength : normal Medical Decision Making MDM: Summary: Patient resents emergency department complaining of lower abdominal pain dysuria urgency. Labs were done which show pyuria but no white count. He was given IV fluids analgesics which improved his symptoms. Labs do not show elevated white count but urinalysis does show pyuria and hematuria he was given IV ceftriaxone for this. A CAT scan was done which shows growth in the bladder which he knows he has bladder cancer but did improve after March when he had his last cystoscopy. I spoke with Clare at Dr. Huber's office the urologist who will see the patient soon for another cystoscopy. Data Review Analysis All the data on this patient was reviewed by me including laboratory and imaging studies as well as bedside studies performed by me Independent review of Studies Imaging CT scan showing a bladder mass Lab: Labs showing pyuria compatible with UTI Risk Stratification: Likely with UTI and also with bladder cancer who will be treated with antibiotics discharged home with close follow-up with this week with urology Differential Diagnosis: 1. Urinary tract infection 2. Bladder cancer 3. kidney stones 4. 5. Consultants: Clare at Dr. Huber's office agrees with disposition Shared disposition: Patient understands and his the instructions will be discharged home with close follow-up Impression: Medical Records Medical records reviewed: Yes I reviewed the patient's medical records. Imaging Data Radiologic Study: Attestation: I personally reviewed and interpreted this imaging study as follows: Imaging: CT Scan Radiologist's impression: Patient Name: Hayes Grijalva Unit #: [id number] Loc: ER Ordering Provider: Quan Quiles M.D. Status: REG ER Primary Care Provider: Kody Huerta NP Date of Exam: 05/29/23 Sex: M : 1965 Age: 58 Exam(s) a CT:CT abdomen & pelvis w Exam(s) CT ABDOMEN PELVIS W EXAM: CT ABDOMEN PELVIS W CLINICAL HISTORY: pelvic pain and dysuria. TECHNIQUE: Imaging Protocol: Axial computed tomography images with coronal and sagittal reformatted images were created and reviewed CONTRAST MATERIAL: Intravenous: Omnipaque-350 100cc Oral: None COMPARISON: CT CT ABDOMEN PELVIS W from 03/26/2023 FINDINGS: VISUALIZED LUNG BASES: No nodules nor pleural effusions evident. ABDOMEN: There is no ascites. LIVER: There are no focal hepatic lesions evident. No dilated intrahepatic ducts. GALLBLADDER/BILIARY: No obvious gallbladder pathology. CBD is not dilated. PANCREAS: No evidence of pancreatic mass nor dilatation of the pancreatic duct. SPLEEN: Spleen is not enlarged. No obvious intrasplenic lesions. Splenic and portal veins are patent. ADRENALS: There are no significant adrenal masses. KIDNEYS:No cysts evident. No solid renal masses. No calculi nor hydronephrosis.. ABDOMINAL AORTA: Moderate atherosclerotic involvement. Maximum diameter 2 cm. There is some calcified plaque in the common iliac arteries and there is fusiform dilatation of the distal left common iliac artery which exhibits diameter 1.5 cm. No aneurysm in the right iliac vessels. LYMPH NODES:There is no retroperitoneal nor paraaortic adenopathy. ABDOMINAL WALL: No evidence of significant anterior abdominal wall nor inguinal hernia. GI: There is no evidence of bowel obstruction, free air, nor abscess. PELVIS: GI: No evidence of appendicitis.No evidence of sigmoid diverticulitis. LYMPH NODES: There is no intrapelvic nor inguinal adenopathy. REPRODUCTIVE: Prostate not enlarged. URINARY BLADDER: Although the bladder it is partially obscured by beam hardening artifact from right hip prosthesis, there is an abnormal mural mass in the anterior aspect of the bladder which is highly suspicious for neoplasm. There is also other density within the bladder lumen which may represent calculi possibly some hemorrhage. OSSEOUS: Right hip prosthesis. No fractures. No significant osseous lesions. IMPRESSION: 1. There is a malignant-appearing mass in the urinary bladder, most prominent anteriorly. There also other hyperdense intraluminal densities in the bladder which were not evident on prior CT scan of 03/26/2023. This may be related to interval cystoscopic procedure. 2. 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 No dissection. 3. There is a right hip prosthesis again evident Called by myself to ER physician Lab Data Lab results reviewed: Yes I reviewed the patient's lab results. Quality:SDOH Health Related Social Needs: No Data to Display Discharge Plan Disposition Patient Disposition: Home Condition: Improving Discharge Details Clinical Impression: Urinary tract infection, Bladder cancer Primary Care Provider: Kody Huerta ED Provider: Quan Quiles Home Meds and New Rx's Prescriptions: New amoxicillin-pot clavulanate 875-125 mg tablet 1 tab PO BID Qty: 14 0RF Continued One-A-Day Men's 50 Plus(vit K) 400-20-370 mcg tablet 1 tab PO DAILY omega 2-fpx-pny-fish oil [Fish Oil] 1,000 mg (120 mg-180 mg) capsule 1 cap PO DAILY rosuvastatin 40 mg tablet 40 mg PO DAILY Qty: 90 3RF polyethylene glycol 3350 17 gram/dose powder 238 g PO ONCE Qty: 238 0RF Rx Instructions: take per colonoscopy instructions bisacodyl [Dulcolax (bisacodyl)] 5 mg tablet,delayed release (DR/EC) 5 mg PO ONCE Qty: 4 0RF Rx Instructions: take per colonoscopy instructions oxybutynin chloride 5 mg tablet extended release 24hr 5 mg PO DAILY Qty: 30 1RF omeprazole 40 mg capsule,delayed release(DR/EC) 40 mg PO DAILY Qty: 90 3RF ibuprofen 800 mg tablet See Rx Instructions .ROUTE .COMPLEX Qty: 90 0RF Dose Instruction: TAKE 1 TABLET BY MOUTH EVERY 8 HOURS NEEDED FOR PAIN Rx Instructions: TAKE 1 TABLET BY MOUTH EVERY 8 HOURS NEEDED FOR PAIN acetaminophen 500 mg tablet 1,000 mg PO Q8H PRN (Reason: pain) Qty: 90 3RF Discharge Instructions Instructions: Urinary Tract Infection in Men (ED) Referrals: Albaro Huber MD [ [facility] STAFF PHYSICIAN] - 3 days Discharge Data Discharge Physician: Quan Quiles
--- NOTE | 2023-05-29 10:15 | DI.CT_ITS ---
Exam(s) CT ABDOMEN PELVIS W EXAM: CT ABDOMEN PELVIS W CLINICAL HISTORY: pelvic pain and dysuria. TECHNIQUE: Imaging Protocol: Axial computed tomography images with coronal and sagittal reformatted images were created and reviewed CONTRAST MATERIAL: Intravenous: Omnipaque-350 100cc Oral: None COMPARISON: CT CT ABDOMEN PELVIS W from 03/26/2023 FINDINGS: VISUALIZED LUNG BASES: No nodules nor pleural effusions evident. ABDOMEN: There is no ascites. LIVER: There are no focal hepatic lesions evident. No dilated intrahepatic ducts. GALLBLADDER/BILIARY: No obvious gallbladder pathology. CBD is not dilated. PANCREAS: No evidence of pancreatic mass nor dilatation of the pancreatic duct. SPLEEN: Spleen is not enlarged. No obvious intrasplenic lesions. Splenic and portal veins are paten t. ADRENALS: There are no significant adrenal masses. KIDNEYS:No cysts evident. No solid renal masses. No calculi nor hydronephrosis.. ABDOMINAL AORTA: Moderate atherosclerotic involvement. Maximum diameter 2 cm. There is some calcifi ed plaque in the common iliac arteries and there is fusiform dilatation of the distal left common pily ac artery which exhibits diameter 1.5 cm. No aneurysm in the right iliac vessels. LYMPH NODES:There is no retroperitoneal nor paraaortic adenopathy. ABDOMINAL WALL: No evidence of significant anterior abdominal wall nor inguinal hernia. GI: There is no evidence of bowel obstruction, free air, nor abscess. PELVIS: GI: No evidence of appendicitis.No evidence of sigmoid diverticulitis. LYMPH NODES: There is no intrapelvic nor inguinal adenopathy. REPRODUCTIVE: Prostate not enlarged. URINARY BLADDER: Although the bladder it is partially obscured by beam hardening artifact from right hip prosthesis, there is an abnormal mural mass in the anterior aspect of the bladder which is highly suspicious for neoplasm. There is also other density within the bladder lumen which may represent c alculi possibly some hemorrhage. OSSEOUS: Right hip prosthesis. No fractures. No significant osseous lesions. IMPRESSION: 1. There is a malignant-appearing mass in the urinary bladder, most prominent anteriorly. There also other hyperdense intraluminal densities in the bladder which were not evident on prior CT scan of . This may be related to interval cystoscopic procedure. 2. 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 No dissection. 3. There is a right hip prosthesis again evident Called by myself to ER physician RADIATION DOSE DELIVERED: 702.05mGy.cm Total DLP DATA REPOSITORY: All CT scans at this facility are submitted to the National Radiology Data Registry (NRDR) Dose Index Registry (DIR) with the [employer] (ACR). RADIATION OPTIMIZATION: All CT scans at this facility use at least one of these dose optimization te chniques: automated exposure control; mA and/or kV adjustment per patient size (includes targeted exa ms where dose is matched to clinical indication); or iterative reconstruction.
[2023-05-29 10:30] LABS: Lactate 0.7 mmol/L (0.6-1.4)
[2023-05-29 10:31] LABS: Abs Immature Grans 0.02 10^3/uL (0.0-0.06); Absolute Basophil Count 0.04 10^3/uL (0.0-0.2); Absolute Eosinophil Count 0.19 10^3/uL (0.0-0.7); Absolute Lymphocyte Count 2.34 10^3/uL (1.2-3.4); Absolute Monocyte Count 0.64 10^3/uL (0.1-0.8); Absolute Neutrophil Count 3.11 10^3/uL (1.2-6.7); Basophils % 0.6; HCT 40.3 % (40.0-50.0); HGB 13.9 g/dL (13.5-17.5); Immature Grans % 0.3; Lymphocytes % 36.9; MCH 30.8 pg (27.0-33.0); MCHC 34.5 % (32.0-36.0); MCV 89 fL (80-95); Monocytes % 10.1; Neutrophils % 49.1; Platelet Count 206 10^3/uL (130-400); RBC 4.51 10^6/uL (4.36-5.78); RDW 12.3 % (11.8-14.1); RDW-SD 40.4 fL; WBC 6.34 10^3/uL (4.4-10.8)
[2023-05-29] MEDS: MORPHine 4 MG/ML SYR IVP (10:38)
[2023-05-29] MEDS: Normal Saline 1,000 ML 1000 ML IV (10:39)
[2023-05-29 10:41] LABS: Clarity Clear (Clear); Specific Gravity 1.022 (1.005-1.025)
[2023-05-29] MEDS: Omnipaque 350 MG/ML 100 ML BTL IJ (10:43)
[2023-05-29] MEDS: Normal Saline - Diluent 50 ML VIAL IJ (10:44)
[2023-05-29 10:47] LABS: Bacteria Few HPF (Negative); C & S Indicated? Yes; Casts Negative LPF (Negative); Crystals Negative HPF (Negative); Epithelial Cells Rare HPF (Negative); Mucus Negative (Negative); RBC >50 HPF (0-2); WBC >50 HPF (0-5)
[2023-05-29 10:51] LABS: ALT 36 U/L (16-63); AST 19 U/L (15-37); Albumin 3.9 g/dL (3.4-5.0); Alkaline Phosphatase 61 U/L (46-116); BUN 17 mg/dL (7-18); Bilirubin, Total 0.9 mg/dL (0.2-1.0); Calcium 9.1 mg/dL (8.5-10.1); Chloride 105 mmol/L (98-107); Glucose 92 mg/dL (74-106); Potassium 3.9 mmol/L (3.5-5.1); Sodium 139 mmol/L (136-145); Total Protein 7.2 g/dL (6.4-8.2)
[2023-05-29] MEDS: cefTRIAXone 1 GM/50 ML BAG IVPB (11:51)
== END 2023-05-29 12:39 | disposition home or self-care (01) ==
PROVIDERS: Emergency Provider Emergency Medicine Emergency Medical Services; PCP Nurse Practitioner Family
DX: R10.31 Right lower quadrant pain (principal); R30.0 Dysuria; C67.9 Malignant neoplasm of bladder, unspecified; F17.210 Nicotine dependence, cigarettes, uncomplicated; N39.0 Urinary tract infection, site not specified
CPT/HCPCS: 36415; 80053; 87040; 96361; 96365; 96375; 99285; 74177; 81003; 81015; 83605; 85025; 87086; 99284; J0696; J2270; J3490

== ENCOUNTER 2023-06-13 07:42 | Day surgery (SDC) | payer OTHER, SELFPAY ==
[2023-06-13 07:50] VITALS: BP 119/62; PULSE 65; RESP 16; TEMP 36.2; O2SAT 100
[2023-06-13] MEDS: Lactated Ringers 1,000 ML 80 ML IV (08:25)
--- NOTE | 2023-06-13 08:43 | ANES.PREOP_ITS ---
General Info Date of Service Date Performed: 06/13/23 Height: 5 ft 7 in Weight: 75.6 kg Body Mass Index (BMI): 26.1 Surgical Procedure: Operation Date: 06/13/23 09:55 Proposed Procedure Side Surgeon p Cystoscopy w/Transurethral Resection Bladder Mass Albaro Huber MD Meds Allergies and Home Medications Allergies Allergy/AdvReac Type Severity Reaction Status Date / Time tramadol AdvReac Severe Dizziness/L Unverified 06/13/23 07:59 ighthead Home Medication Medication Instructions Recorded plkjfozyetmz-cft-ypaqx acid-vit 1 tab PO DAILY 05/29/19 K-lycop 400 mcg-20 mcg-370 mcg tablet (One-A-Day Men's 50 Plus (with vitamin K)) omega 4-vsr-mko-fish oil 1,000 mg 1 cap PO DAILY 05/29/19 (120 mg-180 mg) capsule (Fish Oil) acetaminophen 500 mg tablet 1,000 mg (2 x 500 mg) PO Q8H PRN 07/27/20 pain #90 tabs rosuvastatin 40 mg tablet 40 mg PO DAILY #90 tabs 07/04/22 omeprazole 40 mg capsule,delayed 40 mg PO DAILY #90 caps 03/06/23 release oxybutynin chloride 5 mg 5 mg PO DAILY #30 tabs 04/18/23 tablet,extended release 24 hr ibuprofen 800 mg tablet See Rx Instructions .Route 05/04/23 .COMPLEX #90 tabs ciprofloxacin HCl 500 mg tablet 500 mg PO BID #14 tabs 06/06/23 oxycodone 5 mg tablet 5 mg PO Q6H PRN pain #12 tabs 06/11/23 Current Visit Medications: Current Medications Generic Name Dose Route Start Last Admin Trade Name Konstantinq PRN Reason Stop Dose Admin Ciprofloxacin HCl 500 mg 06/13/23 06:00 Ciprofloxacin 500 Mg Tab PO 06/13/23 16:00 PREOP BETH Ringer's Solution 1,000 mls @ 80 mls/hr 06/13/23 06:00 06/13/23 08:25 IV 07/12/23 23:59 80 mls/hr INFUSION BETH Administration IV Miscellaneous Supplies 1 each 06/13/23 06:00 Iv Access IV 07/12/23 23:59 DIRECTED BETH Sodium Chloride 0 ml 06/13/23 06:00 Normal Saline Flush 10 Ml Syr IV 07/12/23 23:59 PRN PRN Sodium Chloride 0 ml 06/13/23 06:00 Normal Saline 10 Ml Vial IJ 07/12/23 23:59 DIRECTED PRN Sterile Water 0 ml 06/13/23 06:00 Water,Injection,Sterile 10 Ml Vial IJ 07/12/23 23:59 DIRECTED PRN PFSH Active Problems Active Problems: Problem Status Onset Code Bladder cancer C67.9 Urinary tract infection N39.0 LLQ pain R10.32 Tendinitis of ankle or foot M77.50 Dysesthesia R20.8 Nicotine dependence F17.200 Personal history of nicotine dependence Z87.891 Hyperlipidemia E78.5 Medical History Medical History Hx of gastroesophageal reflux (GERD) Cervicalgia Base of neck without deformity or radiculopathy Urothelial carcinoma of bladder Medical History Comments:: taylor barraza-1, daily Surgical History Surgical History (Updated 06/13/23 @ 08:08 by Binta Martinez) Hx of cystoscopy H/O transurethral resection of bladder tumor (TURBT) History of total right hip replacement (07/27/20) Tobacco Smoking/Tobacco Use Status: Current every day Tobacco Type: cigarettes Smoking packs per day: 1 Smoking cigarettes per day: 20.0 Passive smoking exposure: Yes Second hand exposure: Yes Alcohol Alcohol Intake: current Alcohol intake frequency: holidays/special occasions only Alcohol type: beer Substance Use Substance use: Daily Substance use type: marijuana Vital Signs and Lab Results Vital Signs Most Recent Vital Signs in EMR: Most Recent Vital Signs Temp Pulse Resp BP Pulse Ox 36.2 C L 65 16 119/62 100 06/13/23 07:50 06/13/23 07:50 06/13/23 07:50 06/13/23 07:50 06/13/23 07:50 Lab Results Blood Type / Crossmatch: No Data to Display Complete Blood Count: White Blood Count 6.34 10^3/uL (4.4-10.8) 05/29/23 10:20 Red Blood Count 4.51 10^6/uL (4.36-5.78) 05/29/23 10:20 Hemoglobin 13.9 g/dL (13.5-17.5) 05/29/23 10:20 Hematocrit 40.3 % (40.0-50.0) 05/29/23 10:20 Platelet Count 206 10^3/uL (130-400) 05/29/23 10:20 Venous Blood Lactate 0.7 mmol/L (0.6-1.4) 05/29/23 10:20 Complete Metabolic Panel: Sodium 139 mmol/L (136-145) 05/29/23 10:20 Potassium 3.9 mmol/L (3.5-5.1) 05/29/23 10:20 Chloride 105 mmol/L (98-107) 05/29/23 10:20 Carbon Dioxide 26.0 mmol/L (21.0-32.0) 05/29/23 10:20 BUN 17 mg/dL (7-18) 05/29/23 10:20 Creatinine 1.0 mg/dL (0.70-1.30) 05/29/23 10:20 Est GFR (CKD-EPI 2020) 86.70 (mL/min/1.73m2) 05/29/23 10:20 Calcium 9.1 mg/dL (8.5-10.1) 05/29/23 10:20 Albumin 3.9 g/dL (3.4-5.0) 05/29/23 10:20 Glucose 92 mg/dL (74-106) 05/29/23 10:20 Liver Function Panel: Alanine Aminotransferase (ALT/SGPT) 36 U/L (16-63) 05/29/23 10: 20 Aspartate Amino Transf (AST/SGOT) 19 U/L (15-37) 05/29/23 10:20 Coagulation Panel: No Data to Display Cardiac Panel: No Data to Display Arterial Blood Gas: No Data to Display Venous Blood Gas: No Data to Display Pancreas Panel: No Data to Display Thyroid Panel: No Data to Display Infectious Disease: No Data to Display Blood Cultures: No Data to Display Toxicology Panel: No Data to Display Imaging and Studies Imaging and Studies Study information below may be from another EMR and interpreted by another provider. Please see original notes in EMR for more complete details. EKG Summary: 12/31: sinus elsy. Anesthesia Assessment and Plan Anesthesia History Personal History: No History of Anesthesia Complications Family History: No Family History of Anesthesia Complications Exercise Tolerance Exercise Tolerance: Metabolic Equivalents>4 Pertinent Negatives Pertinent Negatives: No Symptoms of GERD, No Major Cardiovascular Symptoms or Complaints, No Major Pulmonary Symptoms or Complaints and No History of CVA/TIA Cardiac & Pulmonary Exam Cardiac Exam: Normal S1/S2 Heart Sounds Pulmonary Exam: Clear Bilateral Breath Sounds Implantable Cardiac Device Does patient have a Pacemaker or an ICD?: No Airway Exam Known Difficult Airway: No Mallampati Class: 2 Mouth Opening: Normal (> 3cm) Thyromental Distance: Greater than 3 cm Neck Range of Motion: Full ROM Neck Circumference: Normal Teeth Condition: Loose or Chipped ASA Classification ASA Score: ASA 2 Emergency Case?: No NPO Status NPO Status: NPO Clears >2 hours, Solids >8 hours Anesthesia Plan Resuscitation Status: Full Code Anesthesia Technique: General Anesthesia Airway Planned: Natural Airway Monitors Used: Standard Monitors
[2023-06-13 08:45] VITALS: BMI 26.1
--- NOTE | 2023-06-13 08:48 | HPE_ITS ---
Date of service: 06/13/23 Time of Service: 08:48 Assessment and Plan Assessment and plan (1) Bladder cancer: Status: Acute Assessment and plan: For cystoscoy with TUR and fulguration of the bladder mass seen on CT scan. History of Present Illness History of Present Illness Chief Complaint: Bladder mass Narrative: This is a 58-year-old gentleman who has a history of low-grade, noninvasive, urothelial cell carcinoma of the bladder. He has been treated with transurethra l resections and intravesical perioperative chemotherapy installations. He has been having suprapubic pain and actually passed what appeared to be some fecal material in his urine. Clinically, we are concerned about the presence of a small colovesical fistula. A CT scan shows a masslike lesion in the bladder. He presents now for cystoscopy with transurethral resection and fulguration of the area. He has had history of diverticulitis but he has had a normal colonoscopy recently. Review of Systems Narrative: No fevers or chills No vision change or dysphasia No diabetes or thyroid dysfunction No shortness of breath, cough or hemoptysis No chest pain or palpitations No nausea, vomiting, hepatitis, ulcers, jaundice, diarrhea or constipation No seizures, strokes or peripheral neuropathy No bleeding disorders or anemia No gout PFSH All Active Problems Bladder cancer (Acute) Urinary tract infection (Acute) LLQ pain (Acute) Tendinitis of ankle or foot (Acute) Dysesthesia (Acute) left fingers Nicotine dependence (Acute) Personal history of nicotine dependence (Acute) 3.,1ppd, 30 plus yr pk yr hx Hyperlipidemia (Acute) Medical History Hx of gastroesophageal reflux (GERD) Cervicalgia Base of neck without deformity or radiculopathy Urothelial carcinoma of bladder Surgical History (Updated 06/13/23 @ 08:08 by Binta Martinez) Hx of cystoscopy H/O transurethral resection of bladder tumor (TURBT) History of total right hip replacement (07/27/20) Family History Mother No problems noted. Father , age 74 Hyperlipidemia COPD (chronic obstructive pulmonary disease) Brother Alcohol abuse Substance abuse Son No problems noted. Social History Smoking/Tobacco Use Status: Current every day Tobacco Type: cigarettes Smoking packs per day: 1 Smoking cigarettes per day: 20.0 Tobacco: How many years used: 35 Quit status: considering quitting Second Hand Exposure: Yes Smoking risk assessment performed?: Yes Alcohol Intake: current Alcohol Intake frequency: holidays/special occasions only Alcohol type: beer Drug use: Daily Substance use type: marijuana Caregiver/Support person: No Household members: significant other and family Housing: apartment Communication Needs: None Do you need help understanding health information?: Rarely Pets and animals: Yes Pets and animals: dog(s) Sexually active: Yes Do you think of yourself as: straight/heterosexual Current gender identity: male What is your relationship status?: How often do you talk on the phone with friends or family?: three or more times per week How often do you get together with friends or relatives?: three or more times per week How often do you attend episcopal or zoroastrian services?: decline to answer Do you belong to any clubs or organized social groups?: no Panel score (0-1 are the most socially isolated patients): 1 What type of physical activity do you participate in: walking Duration: > 90 minutes/day Frequency: 5-6 times per week Dai/Judaism: None Special dai needs: No Seatbelt use: always Helmet use: Yes Helmet use: always Drive intox 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 Do you feel safe at home: Yes Additional Social history: Unable to assess privately Meds Allergies and Home Medications Allergies Allergy/AdvReac Type Severity Reaction Status Date / Time tramadol AdvReac Severe Dizziness/L Unverified 06/13/23 07:59 ighthead Home Medications Medication Instructions Recorded Confirmed Type oblsthytnggu-nrt-kevda acid-vit 1 tab PO DAILY 05/29/19 06/13/23 History K-lycop 400 mcg-20 mcg-370 mcg tablet (One-A-Day Men's 50 Plus (with vitamin K)) omega 8-olv-ldz-fish oil 1,000 mg 1 cap PO DAILY 05/29/19 06/13/23 History (120 mg-180 mg) capsule (Fish Oil) acetaminophen 500 mg tablet 1,000 mg (2 x 500 mg) PO Q8H PRN 07/27/20 06/13/23 Rx pain #90 tabs rosuvastatin 40 mg tablet 40 mg PO DAILY #90 tabs 07/04/22 06/13/23 Rx omeprazole 40 mg capsule,delayed 40 mg PO DAILY #90 caps 03/06/23 06/13/23 Rx release oxybutynin chloride 5 mg 5 mg PO DAILY #30 tabs 04/18/23 06/13/23 Rx tablet,extended release 24 hr ibuprofen 800 mg tablet See Rx Instructions .Route 05/04/23 06/13/23 Rx .COMPLEX #90 tabs ciprofloxacin HCl 500 mg tablet 500 mg PO BID #14 tabs 06/06/23 06/13/23 Rx oxycodone 5 mg tablet 5 mg PO Q6H PRN pain #12 tabs 06/11/23 06/13/23 Rx Exam Const General: cooperative Neck Neck: supple Resp Effort & Inspection: normal respiratory effort Auscultation: clear to auscultation bilaterally Cardio Rate: regular rate Rhythm: regular rhythm GI Palpation: soft and no masses Neuro General: patient alert and patient oriented x3 Results Last Vital Signs Temp 36.2 C L 06/13/23 07:50 Pulse 65 06/13/23 07:50 Resp 16 06/13/23 07:50 BP 119/62 06/13/23 07:50 Pulse Ox 100 06/13/23 07:50 Time Spent Time spent with Patient: <40 minutes Time was spent: other
[2023-06-13] MEDS: Lidocaine 2% Jelly 11 ML SYR (10:11)
--- NOTE | 2023-06-13 10:30 | BLADDER_PTH ---
PATIENT: Hayes Grijalva LOC: [facility] U#:[id number] AGE/SX: 58/M ROOM: RE06/13/[address]: Albaro Huber MD : 1965 BED: DIS: 06/13/2023 SPEC #: [id number] RECD: 06/13/23 12:49 STATUS: DIDI ULLOA #: [id number] TAE: 06/13/23 10:[address]: Albaro Huber DEPT: Surgical Specimen RECD BY: Alessia Newton ENTERED: 06/13/23 12:49 SP TYPE: Bladder OTHR DR: Kody Huerta, GYM INSTRUCTOR Tissues: 1 - BLADDER CURRETTINGS Procedures: GROSS AND MICRO LEVEL 5 Comments: [id number]
--- NOTE | 2023-06-13 10:32 | W.PM.DSUDISC ---
Date of service: 06/13/23 Time of Service: 10:33 Discharge Plan Disposition Patient Disposition: Home Condition: Stable Discharge Details Reason For Visit: cystoscopy with TUR bladder mass Attending Provider: Albaro Huber Primary Care Provider: Kody Huerta Home Meds and New Rx's Prescriptions: No Action One-A-Day Men's 50 Plus(vit K) 400-20-370 mcg tablet 1 tab PO DAILY omega 0-zpn-xzo-fish oil [Fish Oil] 1,000 mg (120 mg-180 mg) capsule 1 cap PO DAILY rosuvastatin 40 mg tablet 40 mg PO DAILY Qty: 90 3RF oxybutynin chloride 5 mg tablet extended release 24hr 5 mg PO DAILY Qty: 30 1RF ciprofloxacin HCl 500 mg tablet 500 mg PO BID Qty: 14 0RF omeprazole 40 mg capsule,delayed release(DR/EC) 40 mg PO DAILY Qty: 90 3RF ibuprofen 800 mg tablet See Rx Instructions .ROUTE .COMPLEX Qty: 90 0RF Dose Instruction: TAKE 1 TABLET BY MOUTH EVERY 8 HOURS NEEDED FOR PAIN Rx Instructions: TAKE 1 TABLET BY MOUTH EVERY 8 HOURS NEEDED FOR PAIN oxycodone 5 mg tablet 5 mg PO Q6H MDD 4 PRN (Reason: pain) Qty: 12 0RF acetaminophen 500 mg tablet 1,000 mg PO Q8H PRN (Reason: pain) Qty: 90 3RF Discharge Instructions Additional Instructions: laureano to gravity (large drainage bag or leg bag (patient choice) followup early next week for catheter removal pathology appt 1 to 2 weeks Activity:: off work until catheter removed Shower/Bathe:: 24 hours Diet:: As Tolerated Discharge Orders Discharge Orders: Discharge Order (Routine); Ordered 06/13/23 Ordered By: Albaro Huber DS: Diagnosis Discharge Diagnosis (1) Bladder cancer: Status: Acute
--- NOTE | 2023-06-13 10:38 | W.PM.OP ---
Date of service: 06/13/23 Time of Service: 10:38 Operative Note Operative Note DATE OF PROCEDURE: 06/13/23 PRE-OP DIAGNOSIS: bladder mass POST-OP DIAGNOSIS: same bladder stone Refer to Anesthesia Record ESTIMATED BLOOD LOSS: 10 PATHOLOGY: other (1. Bladder mass 2. Bladder stone) COMPLICATIONS: None Patient was transported to: same day Patient's condition: stable Implants: 16 Kittitian laureano catheter with 10 cc sterile water in balloon Indications: This is a 58-year-old gentleman who has a history of low-grade, noninvasive urothelial cell carcinoma of the bladder. He has been treated with transurethral resections and perioperative intravesical chemotherapy. He has had persistent abdominal pain and on CT scan there appeared to be a new mass within the bladder. He passed some material in his urine that was concerning for bowel contents. He presents for cystoscopy and transurethral resection of any visible bladder mass Findings: Necrotic mass adherent to posterior bladder wall Stone particles adherent to necrotic mass Procedure Description: The patient was brought to the operating room on 06/13/2023. He previously had taken oral antibiotics. After successful induction of general anesthesia, he was placed in the dorsal lithotomy position. His genitalia was prepped and draped. 2% Xylocaine jelly was instilled into the urethra to act as a local anesthetic. A 24 Kittitian resectoscope sheath was passed through the urethra into the bladder. The urethra and bladder were inspected with a 30 degree lens. The pendulous, bulbar and membranous urethra's appeared normal with no strictures. The prostatic urethra showed no mucosal abnormalities. The bladder neck was entered and the bladder mucosa was inspected. Both ureteral orifices appeared normal with no blood seen coming from either side. On the posterior bladder wall, there was necrotic tissue with adherent stone particles. The mucosa on either side of this necrotic tissue was a bit erythematous. We used bipolar cautery and an Arcivr resectoscope to resect the necrotic tissue down until the more normal-appearing bladder was encountered. The necrotic tissue was sent to pathology for permanent section. Some of the stone particles were from the necrotic tissue and sent for chemical analysis. The underlying mucosa was then cauterized using the coagulation current. Once the resection was completed and hemostasis had been obtained, the bladder was filled with irrigant. The resectoscope was removed. A 16 Kittitian Laureano catheter was passed through the urethra into the bladder. The catheter balloon was inflated with 10 cc of sterile water. The catheter was hooked to gravity drainage. The patient tolerated this procedure well with no complications.
[2023-06-13 10:41] VITALS: BP 133/62; PULSE 52; RESP 16; TEMP 36.4; O2SAT 98
[2023-06-13] MEDS: Phenazopyridine 200 MG TAB PO (10:49)
[2023-06-13] MEDS: Oxybutynin 5 MG TAB PO (10:49)
--- NOTE | 2023-06-13 10:55 | W.ANESPOSTOP ---
Postoperative Evaluation Date, Time and Location Date Performed: 06/13/23 Time Performed: 10:42 Patient Location: Day Surgery Unit Vital Signs Most Recent Imported Vital Signs: Most Recent Vital Signs Temp Pulse Resp BP Pulse Ox 36.4 C L 52 L 16 133/62 98 06/13/23 10:41 06/13/23 10:41 06/13/23 10:41 06/13/23 10:41 06/13/23 10:41 Pain Score Most Recent Pain Score: Most Recent Pain Score Pain Level 2 06/13/23 10:41 Assessment Mental Status: Awake (Alert & Oriented to Patient Baseline) Airway and Respiratory Function: Patent airway with normal (patient baseline) respiratory exam Cardiovascular Function: Hemodynamically Stable Hydration Status: Adequately Hydrated Nausea & Vomiting: No Nausea or Vomiting Pain: Pain is tolerable per patient Peripheral Nerve Block: Patient did not receive a nerve block
[2023-06-13] MEDS: oxyCODONE 5 MG TAB PO ×2 (10:57→11:36)
[2023-06-13 11:14] VITALS: BP 153/81; PULSE 51; RESP 18; TEMP 36.6; O2SAT 100
[2023-06-13 12:17] VITALS: BP 148/63; PULSE 51; RESP 17; TEMP 36.6; O2SAT 99
== END 2023-06-13 13:25 | disposition home or self-care (01) ==
PROVIDERS: PCP Nurse Practitioner Family; Visit Provider Urology
PROC: 0TBB8ZZ Excision of Bladder, Via Natural or Artificial Opening Endoscopic (ICD-10-PCS; CPT 52204; principal; 2023-06-13 09:45)
DX: C67.9 Malignant neoplasm of bladder, unspecified (principal); C67.4 Malignant neoplasm of posterior wall of bladder; N21.0 Calculus in bladder
CPT/HCPCS: 52204; 82365; 88307; J2704; J3010

== ENCOUNTER 2023-07-25 10:09 | Emergency (ER) | payer OTHER, SELFPAY ==
[2023-07-25 10:24] VITALS: BP 129/70; PULSE 73; RESP 16; TEMP 36.4; O2SAT 98
--- NOTE | 2023-07-25 10:45 | DI.RAD_ITS ---
Exam(s) XR KNEE LT 4V AP,LAT,PABLO,PAT EXAM: XR KNEE LT 4V AP,LAT,PABLO,PAT CLINICAL HISTORY: knee pain, atraumatic. TECHNIQUE: 2D digital imaging was performed. COMPARISON: CR XR KNEE RT 3V AP,LAT,PABLO from 07/11/2020 FINDINGS: Four views. No evidence acute fracture but there is a joint effusion noted signifying internal derangement. Ther e is no joint space narrowing but there is significant chondrocalcinosis in the medial compartment an d the appearance of this chondrocalcinosis reflects the possibility of the medial meniscus abnormalit y at this level. IMPRESSION: No osseous findings. However, there is a joint effusion and medial compartment chondrocalcinosis wit h implications as above. Suspect possible medial meniscal tear. DATA REPOSITORY: RADIATION DOSE DELIVERED:
--- NOTE | 2023-07-25 11:23 | W.ED.GENAD ---
Discharge Plan Disposition Patient Disposition: Home Condition: Stable Discharge Details Clinical Impression: Knee pain, left Primary Care Provider: Kody Huerta ED Provider: Doris Shirley Home Meds and New Rx's Prescriptions: Continued One-A-Day Men's 50 Plus(vit K) 400-20-370 mcg tablet 1 tab PO DAILY omega 5-fkf-muh-fish oil [Fish Oil] 1,000 mg (120 mg-180 mg) capsule 1 cap PO DAILY rosuvastatin 40 mg tablet 40 mg PO DAILY Qty: 90 3RF varenicline [Chantix Starting Month Box] 0.5 mg (11)- 1 mg (42) tablets,dose pack See Rx Instructions PO PER PKG DIR Qty: 53 0RF Rx Instructions: PO PER PKG DIR silver sulfadiazine [Silvadene] 1 % cream 1 applic topical BID Qty: 50 1RF Rx Instructions: apply a 1.5 mm thickness omeprazole 40 mg capsule,delayed release(DR/EC) 40 mg PO DAILY Qty: 90 3RF ibuprofen 800 mg tablet See Rx Instructions .ROUTE .COMPLEX Qty: 90 0RF Dose Instruction: TAKE 1 TABLET BY MOUTH EVERY 8 HOURS NEEDED FOR PAIN Rx Instructions: TAKE 1 TABLET BY MOUTH EVERY 8 HOURS NEEDED FOR PAIN oxybutynin chloride 5 mg tablet extended release 24hr See Rx Instructions .ROUTE .COMPLEX Qty: 30 0RF Dose Instruction: TAKE 1 TABLET BY MOUTH DAILY Rx Instructions: TAKE 1 TABLET BY MOUTH DAILY acetaminophen 500 mg tablet 1,000 mg PO Q8H PRN (Reason: pain) Qty: 90 3RF Discharge Instructions Instructions: Knee Pain (ED) Additional Instructions: Please call Dr. Ernst's office to schedule a follow-up appointment for evaluation into your knee pain. There is a possibility of a meniscus injury or other soft tissue injury in the knee. I encourage you to use the knee brace for comfort, especially while out of bed walking around. I advise you to use ibuprofen 800 mg every 8 hours as needed for pain control. It may help to take this ylnoys-cwt-pcmnc to help get ahead of the discomfort. Apply ice and elevate your knee as often as possible, preferably for 15 to 20 minutes every hour. Wear well supportive shoes. You may apply Voltaren gel or IcyHot/Biofreeze to your knee for pain control as well. Return to emergency care if you develop new fevers associated with knee pain, overlying redness/swelling/warmth, numbness/tingling down the leg, or if you are very worried and need to be rechecked again immediately Stand Alone Forms: Work Release Referrals: Oh Ernst MD [ [facility] STAFF PHYSICIAN] - [facility] General Date/Time Provider Initiated Documentation: 07/25/23 10:28. HPI Narrative: Hayes is a 58-year-old male who presents to the emergency department today for evaluation of left knee pain. He reports this started Saturday night (4 days ago) while at work, is aggravated with walking, especially when lifting up the leg. He reports it responds well to ice and ibuprofen, says he has been taking to 800 mg tablets for pain control. Tylenol is not as effective. He denies systemic symptoms such as fever/chills, general malaise, change in bowel or bladder function, distal numbness/tingling, overlying redness/swelling/warmth, recent injury. He reports has had similar pain in his knee when he needed his right hip replaced. He denies hip pain. No previous surgery to this knee. Related Data Home Medications Medication Instructions Recorded Confirmed uluuqdukmpxg-bsg-ulljl acid-vit 1 tab PO DAILY 05/29/19 07/25/23 K-lycop 400 mcg-20 mcg-370 mcg tablet (One-A-Day Men's 50 Plus (with vitamin K)) omega 4-jsb-qlr-fish oil 1,000 mg 1 cap PO DAILY 05/29/19 07/25/23 (120 mg-180 mg) capsule (Fish Oil) acetaminophen 500 mg tablet 1,000 mg (2 x 500 mg) PO Q8H PRN 07/27/20 07/25/23 pain #90 tabs rosuvastatin 40 mg tablet 40 mg PO DAILY #90 tabs 07/04/22 07/25/23 omeprazole 40 mg capsule,delayed 40 mg PO DAILY #90 caps 03/06/23 07/25/23 release ibuprofen 800 mg tablet See Rx Instructions .Route 05/04/23 07/25/23 .COMPLEX #90 tabs silver sulfadiazine 1 % topical 1 applic topical BID #50 grams 07/03/23 07/25/23 cream (Silvadene) oxybutynin chloride 5 mg See Rx Instructions .Route 07/09/23 07/25/23 tablet,extended release 24 hr .COMPLEX #30 tabs varenicline 0.5 mg (11)-1 mg (42) See Rx Instructions PO PER PKG DIR 07/15/23 07/25/23 tablets in a dose pack (Chantix #53 dose pk Starting Month Box) Previous Rx's Medication Instructions Recorded acetaminophen 500 mg tablet 1,000 mg (2 x 500 mg) PO Q8H PRN 07/27/20 pain #90 tabs rosuvastatin 40 mg tablet 40 mg PO DAILY #90 tabs 07/04/22 omeprazole 40 mg capsule,delayed 40 mg PO DAILY #90 caps 03/06/23 release ibuprofen 800 mg tablet See Rx Instructions .Route 05/04/23 .COMPLEX #90 tabs silver sulfadiazine 1 % topical 1 applic topical BID #50 grams 07/03/23 cream (Silvadene) oxybutynin chloride 5 mg See Rx Instructions .Route 07/09/23 tablet,extended release 24 hr .COMPLEX #30 tabs varenicline 0.5 mg (11)-1 mg (42) See Rx Instructions PO PER PKG DIR 07/15/23 tablets in a dose pack (Chantix #53 dose pk Starting Month Box) Allergies Allergy/AdvReac Type Severity Reaction Status Date / Time tramadol AdvReac Severe Dizziness/L Unverified 07/25/23 10:32 ighthead General Stated Complaint: Orthopedic JONE: 4 Review of Systems Narrative: see HPI Exam Const General: cooperative, healthy appearing, comfortable and no acute distress Resp Effort & Inspection: normal respiratory effort and able to speak in complete sentences Extrem Left lower extremity: normal capillary refill and knee Details: tenderness Location: of the medial joint line and abnormal ROM (slightly decreased ROM); normal knee ligament exam, no abrasions, no lacerations, no crepitus, no foreign bodies, no deformity and no unusual warmth Course Vital Signs Vital signs: Vital Signs Temperature 36.4 C L 07/25/23 10:24 Pulse 73 07/25/23 10:24 Respiratory Rate 16 07/25/23 10:24 Blood Pressure 129/70 07/25/23 10:24 Pulse Oximetry 98 07/25/23 10:24 Temperature 36.4 C L 07/25/23 10:24 Temperature Source Temporal Artery Scan 07/25/23 10:24 Pulse 73 07/25/23 10:24 Respiratory Rate 16 07/25/23 10:24 Respiratory Effort Normal 07/25/23 10:29 Blood Pressure 129/70 07/25/23 10:24 Pulse Oximetry 98 07/25/23 10:24 Medical Decision Making Hayes is a 58-year-old male who presents to the emergency department today for evaluation of left knee pain. He reports this started Saturday night (4 days ago) while at work, is aggravated with walking, especially when lifting up the leg. He reports it responds well to ice and ibuprofen, says he has been taking to 800 mg tablets for pain control. Tylenol is not as effective. He denies systemic symptoms such as fever/chills, general malaise, change in bowel or bladder function, distal numbness/tingling, overlying redness/swelling/warmth, recent injury. He reports has had similar pain in his knee when he needed his right hip replaced. He denies hip pain. No previous surgery to this knee. Physical exam remarkable for mild tenderness with palpation to superior medial knee joint. No obvious varus or valgus laxity. No redness/swelling/warmth. Full painless range of motion to knee and hip. No pain with palpation along hip. 5/5 muscle strength the lower extremities. Sensation grossly intact. Slight limp favoring left knee. DDx includes but is not limited to osteoarthritis, referred pain from hip. No red flags concerning for septic joint or other serious infectious etiology. X-ray reassuring, it is significant for joint effusion concerning for possible medial meniscal tear. Discussed findings with patient, recommend use of knee brace, anti-inflammatories, and orthopedic follow-up. He is agreeable with plan of care. Imaging Data Radiologic Study: Radiologist's impression: Exam(s) XR KNEE LT 4V AP,LAT,PABLO,PAT EXAM: XR KNEE LT 4V AP,LAT,PABLO,PAT CLINICAL HISTORY: knee pain, atraumatic. TECHNIQUE: 2D digital imaging was performed. COMPARISON: CR XR KNEE RT 3V AP,LAT,PABLO from 07/11/2020 FINDINGS: Four views. No evidence acute fracture but there is a joint effusion noted signifying internal derangement. There is no joint space narrowing but there is significant chondrocalcinosis in the medial compartment and the appearance of this chondrocalcinosis reflects the possibility of the medial meniscus abnormality at this level. IMPRESSION: No osseous findings. However, there is a joint effusion and medial compartment chondrocalcinosis with implications as above. Suspect possible medial meniscal tear. Quality:SDOH Health Related Social Needs: No Data to Display PFSH All Active Problems (Updated 07/25/23 @ 11:34 by Doris Singh) Knee pain, left (Acute) LLQ pain (Acute) Tendinitis of ankle or foot (Acute) Dysesthesia (Acute) left fingers Nicotine dependence (Acute) Personal history of nicotine dependence (Acute) 3.,1ppd, 30 plus yr pk yr hx Hyperlipidemia (Acute) Medical History (Updated 07/25/23 @ 11:34 by Doris Singh) Hx of gastroesophageal reflux (GERD) Cervicalgia Base of neck without deformity or radiculopathy Urothelial carcinoma of bladder Surgical History (Updated 06/13/23 @ 08:08 by Binta Martinez) Hx of cystoscopy H/O transurethral resection of bladder tumor (TURBT) History of total right hip replacement (07/27/20) Family History Mother No problems noted. Father , age 74 Hyperlipidemia COPD (chronic obstructive pulmonary disease) Brother Alcohol abuse Substance abuse Son No problems noted. Social History Smoking/Tobacco Use Status: Current every day Tobacco Type: cigarettes Smoking packs per day: 1 Smoking cigarettes per day: 20.0 Tobacco: How many years used: 35 Quit status: considering quitting Second Hand Exposure: Yes Smoking risk assessment performed?: Yes Alcohol Intake: current Alcohol Intake frequency: holidays/special occasions only Alcohol type: beer Drug use: Daily Substance use type: marijuana Caregiver/Support person: No Household members: significant other and family Housing: apartment Communication Needs: None Do you need help understanding health information?: Rarely Pets and animals: Yes Pets and animals: dog(s) Sexually active: Yes Do you think of yourself as: straight/heterosexual Current gender identity: male What is your relationship status?: How often do you talk on the phone with friends or family?: three or more times per week How often do you get together with friends or relatives?: three or more times per week How often do you attend cheondoism or protestant services?: decline to answer Do you belong to any clubs or organized social groups?: no Panel score (0-1 are the most socially isolated patients): 1 What type of physical activity do you participate in: walking Duration: > 90 minutes/day Frequency: 5-6 times per week Dai/Episcopalian: None Special dai needs: No Seatbelt use: always Helmet use: Yes Helmet use: always Drive intox or ride w/intox taxicab driver: No Do you feel safe at home: Yes Additional Social history: Unable to assess privately
== END 2023-07-25 12:28 | disposition home or self-care (01) ==
PROVIDERS: Emergency Provider Nurse Practitioner Family; PCP Nurse Practitioner Family
DX: M25.561 Pain in right knee (principal); M25.461 Effusion, right knee; F17.210 Nicotine dependence, cigarettes, uncomplicated
CPT/HCPCS: 99283; 73564

== ENCOUNTER 2024-06-26 00:27 | Outpatient (CLI) | payer OTHER, SELFPAY ==
--- NOTE | 2024-06-26 06:45 | DI.MRI_ITS ---
Exam(s) MR LOWER JOINT LT WO EXAM: MR LOWER JOINT LT WO CLINICAL HISTORY: LEFT KNEE PAIN,CHONDROCALCINOSIS,M11,262 TECHNIQUE: Multiplanar multisequence MRI of the knee was performed. COMPARISON: The radiographs of 07/25/2023 reviewed. FINDINGS: EFFUSION: There is a small knee joint effusion. There is no Grijalva cyst in the popliteal fossa. MARROW:There is no signal abnormality in the tibial plateau and fibular head and neck. There is a fo cus of subarticular signal abnormality within the anterior weight-bearing surface region of the inner aspect of the lateral femoral condyle. PATELLOFEMORAL COMPARTMENT: The quadriceps tendon is intact. The patellar ligament is intact. There is mild relatively uniform thinning of the retropatellar cartilage. There is also a tiny super ficial indentation of the mid aspect of the retropatellar cartilage. There isthere is no intraosseou s signal to suggest recent patellar dislocation. Lateral patellar retinaculum appears unremarkable b ut there is significant signal abnormality on the medial aspect of the knee around the medial patella r retinaculum which exhibits tearing CRUCIATE LIGAMENTS: The anterior cruciate ligament is intact.The posterior cruciate ligament is intac t. MEDIAL COMPARTMENT/MEDIAL MENISCUS: There is a complex tear of the medial meniscus involving the mid and outer thirds and extending to involve both the posterior and anterior horns. Part of the torn po sterior horn is extruded towards the para tibial gutter, as suggested on the prior plain films of Jul. There is also significant fluid signal at the junction of the meniscus and MCL. In the mos t inner aspect of the anterior horn of the medial meniscus there is a intrameniscal cyst measuring 5 by 4 by 2.5 mm. This is adjacent to the junction of the anterior horn and inter meniscal ligament. There is moderate of loss of articular cartilage over the main weight-bearing surface of the medial c ompartment. There is, however, no evidence of subarticular intraosseous edema nor osteochondral defe cts in the medial compartment and there are no marginal osteophytes in the medial compartment. MEDIAL COLLATERAL LIGAMENT: There is fluid both around and with in the medial collateral ligament bet ween the deep and superficial layers of this structure. Consistent with intrasubstance injury althou gh there does not appear to be an area of complete disruption of the MCL proper. LATERAL COMPARTMENT/LATERAL MENISCUS: There is a focus of signal abnormality within the anterior weig ht-bearing surface cartilage of the lateral femoral condyle and subjacent intraosseous edema, suspici ous for osteochondral defect at this level. This cartilage defect measures 4 mm wide by 5 mm AP. Th ere is overlying focal intraosseous signal abnormality in the anterior aspect of the lateral condyle ILIOTIBIAL BAND: Intact LATERAL COLLATERAL LIGAMENT COMPLEX: The fibular collateral ligament is intact. The biceps femoris t endon is intact.Popliteus muscle and tendon are intact. IMPRESSION: 1. There is a complex tear of the medial meniscus involving both anterior and posterior horns of this structure as well as the body of the meniscus none. In addition, there is some intrasubstance cysti c change at the junction of the anterior horn of the medial meniscus and the inter meniscal ligament. There are no flipped meniscal fragments although a fragment of the torn meniscus does appear partia lly extruded into the para tibial gutter. 2. There is partial tearing of the medial collateral ligament. This is most prominent anteriorly at its junction with the partially torn medial patellar retinaculum. There is also fluid signal interpo sed between the deep and superficial layers of the medial collateral ligament. 3. There is a small osteochondral defect in the anterior weight-bearing surface over the lateral femo ral condyle, as described above. There does not appear to be an obvious loose intra-articular body. 4. There are no cruciate ligament tears. Iliotibial band is intact as are all 3 components of the la teral collateral ligament complex. Mild patellofemoral compartment findings as above. DATA REPOSITORY:
== END 2024-06-26 00:47 ==
LOC: DI 00:27
PROVIDERS: PCP Nurse Practitioner Family; Visit Provider Student in an Organized Health Care Education/Training Program
DX: M11.262 Other chondrocalcinosis, left knee (principal)
CPT/HCPCS: 73721

== ENCOUNTER 2024-07-01 10:39 | Day surgery (SDC) | payer OTHER, SELFPAY ==
[2024-07-01] VITALS (17 sets, daily range): BP systolic 116–138; BP diastolic 53–78; PULSE 52–67; RESP 12–25; TEMP 36.1–37; O2SAT 94–99; BMI 27.4
--- NOTE | 2024-07-01 09:35 | PDOC.DSDIS_ITS ---
Date of service: 07/01/24 Discharge Plan Disposition Patient Disposition: Home Condition: Good Discharge Details Reason For Visit: Left knee internal derangement Attending Provider: Oh Ernst Primary Care Provider: Kody Huerta Home Meds and New Rx's Prescriptions: New hydrocodone-acetaminophen 5-325 mg tablet 1 tab PO Q6H PRN (Reason: severe pain) Qty: 6 0RF Rx Instructions: Take one tablet up to every 6 hours as needed for severe postoperative pain Continued One-A-Day Men's 50 Plus(vit K) 400-20-370 mcg tablet 1 tab PO DAILY omega 6-uqz-pin-fish oil [Fish Oil] 1,000 mg (120 mg-180 mg) capsule 1 cap PO DAILY omeprazole 40 mg capsule,delayed release(DR/EC) 40 mg PO DAILY Qty: 90 3RF rosuvastatin 40 mg tablet 40 mg PO DAILY Qty: 90 3RF oxybutynin chloride 5 mg tablet extended release 24hr See Rx Instructions .ROUTE .COMPLEX Qty: 30 3RF Dose Instruction: TAKE 1 TABLET BY MOUTH DAILY Rx Instructions: TAKE 1 TABLET BY MOUTH DAILY hydrocodone-acetaminophen 5-325 mg tablet 1 tab PO Q8H MDD 3 tabs PRN (Reason: pain) Qty: 30 0RF ibuprofen 800 mg tablet See Rx Instructions .ROUTE .COMPLEX Qty: 90 0RF Dose Instruction: TAKE 1 TABLET BY MOUTH EVERY 8 HOURS NEEDED FOR PAIN Rx Instructions: TAKE 1 TABLET BY MOUTH EVERY 8 HOURS NEEDED FOR PAIN acetaminophen 500 mg tablet 1,000 mg PO Q8H PRN (Reason: pain) Qty: 90 3RF Discharge Instructions Stand Alone Forms: Anesthesia Discharge Inst., Crutch Training Instructions, [facility] ([facility]) Referrals: Oh Ernst MD [ [facility] STAFF PHYSICIAN] - 07/13/24 9:30 am Equipment/Supplies: Partial Weight Bearing Crutches Activity:: Elevate Remove Dressings/Wound Care:: 72 hours Shower/Bathe:: 72 hours Diet:: As Tolerated Discharge Orders Discharge Orders: Discharge Order (Routine); Ordered 07/01/24 Ordered By: Heather Glaser
--- NOTE | 2024-07-01 11:11 | HPE_ITS ---
Assessment and Plan Assessment and plan (1) Tear of medial meniscus of left knee: Status: Acute Assessment and plan: Hayes is a 59-year-old male who has a medial meniscal tear about the left knee. He has failed other nonoperative options and at this point I will arthroscopic invention. I discussed the technical features of arthroscopic partial medial meniscectomy. I reviewed the potential complications including bleeding, infection, pain, stiffness, worsening arthritis, need for repeat procedures. Despite these risk, he elects to proceed. History of Present Illness History of Present Illness Chief Complaint: Left Knee Pain Narrative: Hayes is a 59-year-old active male who has had worsening and persistent left knee pain. He has a history of chondrocalcinosis of the left knee. However, he has had persistent pain about the left knee, mostly over the medial aspect of the knee, for the past few months. He has failed other nonoperative options. Recent MRI demonstrated a displaced medial meniscal tear. He denies any chest pain or shortness of breath. He denies any recent illness. Review of Systems All systems reviewed & are unremarkable except as noted in HPI and below PFSH All Active Problems Tear of medial meniscus of left knee (Acute) Skin lesion (Acute) Chondrocalcinosis of left knee (Acute) DEPO MEDROL 05/01/24; 08/15/23 LLQ pain (Acute) Tendinitis of ankle or foot (Acute) Dysesthesia (Acute) left fingers Nicotine dependence (Acute) Personal history of nicotine dependence (Acute) .,1ppd, 30 plus yr pk yr hx Hyperlipidemia (Acute) Medical History Hx of gastroesophageal reflux (GERD) Cervicalgia Base of neck without deformity or radiculopathy Urothelial carcinoma of bladder Surgical History Hx of cystoscopy H/O transurethral resection of bladder tumor (TURBT) History of total right hip replacement (07/27/20) Family History Mother No problems noted. Father , age 74 Hyperlipidemia COPD (chronic obstructive pulmonary disease) Brother Alcohol abuse Substance abuse Son No problems noted. Social History Smoking/Tobacco Use Status: Current every day Tobacco Type: cigarettes Smoking packs per day: 1 Smoking cigarettes per day: 20.0 Tobacco: How many years used: 45 Quit status: not considering quitting Second Hand Exposure: Yes Smoking risk assessment performed?: Yes Alcohol Intake: current Alcohol Intake frequency: holidays/special occasions only Alcohol type: beer Drug use: Daily Substance use type: marijuana Details: 07/01/24: pt smoked 5 cigarettes prior to admission to [facility] today Caregiver/Support person: No Household members: significant other and family Housing: apartment Communication Needs: None Do you need help understanding health information?: Rarely Pets and animals: Yes Pets and animals: dog(s) Sexually active: Yes Do you think of yourself as: straight/heterosexual Current gender identity: male What is your relationship status?: How often do you talk on the phone with friends or family?: three or more times per week How often do you get together with friends or relatives?: three or more times per week How often do you attend presybeterian or moravian services?: decline to answer Do you belong to any clubs or organized social groups?: no Panel score (0-1 are the most socially isolated patients): 1 What type of physical activity do you participate in: walking Duration: > 90 minutes/day Frequency: 5-6 times per week Dai/Samaritan: None Special dai needs: No Seatbelt use: always Helmet use: Yes Helmet use: always Drive intox or ride w/intox mobile lounge driver or operator: No Additional Social history: Unable to assess privately Meds Allergies and Home Medications Allergies Allergy/AdvReac Type Severity Reaction Status Date / Time tramadol AdvReac Severe Dizziness/L Verified 07/01/24 11:16 ighthead Home Medications ?Medication ?Instructions ?Recorded ?Confirmed ?Type ycrtmpzgimkd-nqq-aovjs acid-vit 1 tab PO DAILY 05/29/19 06/30/24 History K-lycop 400 mcg-20 mcg-370 mcg tablet (One-A-Day Men's 50 Plus (with vitamin K)) omega 8-phx-hsk-fish oil 1,000 mg 1 cap PO DAILY 05/29/19 06/30/24 History (120 mg-180 mg) capsule (Fish Oil) acetaminophen 500 mg tablet 1,000 mg (2 x 500 mg) PO Q8H PRN 07/27/20 06/30/24 Rx pain #90 tabs omeprazole 40 mg capsule,delayed 40 mg PO DAILY #90 caps 01/02/24 06/30/24 Rx release rosuvastatin 40 mg tablet 40 mg PO DAILY #90 tabs 01/02/24 06/30/24 Rx oxybutynin chloride 5 mg See Rx Instructions .Route 05/22/24 06/30/24 Rx tablet,extended release 24 hr .COMPLEX #30 tabs hydrocodone 5 mg-acetaminophen 325 1 tab PO Q8H PRN pain #30 tabs 06/29/24 06/30/24 Rx mg tablet ibuprofen 800 mg tablet See Rx Instructions .Route 06/29/24 06/30/24 Rx .COMPLEX #90 tabs hydrocodone 5 mg-acetaminophen 325 1 tab PO Q6H PRN severe pain #6 07/01/24 Rx mg tablet tabs Exam Const General: cooperative, healthy appearing, comfortable and no acute distress Resp Effort & Inspection: normal respiratory effort Auscultation: clear to auscultation bilaterally Cardio Rate: regular rate Rhythm: regular rhythm
--- NOTE | 2024-07-01 11:31 | W.ANESPRE ---
General Info Date of Service Date Performed: 07/01/24 Height: 5 ft 6.5 in Weight: 78.325 kg Body Mass Index (BMI): 27.4 Surgical Procedure: Operation Date: 07/01/24 13:40 Proposed Procedure Side Surgeon p Left Knee arthroscopic partial medial menisectomy Left Oh Ernst MD Meds Allergies and Home Medications Allergies Allergy/AdvReac Type Severity Reaction Status Date / Time tramadol AdvReac Severe Dizziness/L Verified 07/01/24 11:16 ighthead Home Medication ?Medication ?Instructions ?Recorded dzlrbzfnntlf-mjm-bhgsm acid-vit 1 tab PO DAILY 05/29/19 K-lycop 400 mcg-20 mcg-370 mcg tablet (One-A-Day Men's 50 Plus (with vitamin K)) omega 4-aha-tqq-fish oil 1,000 mg 1 cap PO DAILY 05/29/19 (120 mg-180 mg) capsule (Fish Oil) acetaminophen 500 mg tablet 1,000 mg (2 x 500 mg) PO Q8H PRN 07/27/20 pain #90 tabs omeprazole 40 mg capsule,delayed 40 mg PO DAILY #90 caps 01/02/24 release rosuvastatin 40 mg tablet 40 mg PO DAILY #90 tabs 01/02/24 oxybutynin chloride 5 mg See Rx Instructions .Route 05/22/24 tablet,extended release 24 hr .COMPLEX #30 tabs hydrocodone 5 mg-acetaminophen 325 1 tab PO Q8H PRN pain #30 tabs 06/29/24 mg tablet ibuprofen 800 mg tablet See Rx Instructions .Route 06/29/24 .COMPLEX #90 tabs hydrocodone 5 mg-acetaminophen 325 1 tab PO Q6H PRN severe pain #6 07/01/24 mg tablet tabs Current Visit Medications: Current Medications Generic Name Dose Route Start Last Admin Trade Name Freq PRN Reason Stop Dose Admin Acetaminophen 650 mg 07/01/24 09:35 Acetaminophen 325 Mg Tab PO 07/31/24 09:34 Q4H PRN PRN Hydrocodone Bitart/Acetaminophen 0 tab 07/01/24 09:35 Hydrocodone 5/Acetaminophen 325 Tab PO 07/31/24 09:34 Q3H PRN PRN Pain Ringer's Solution 1,000 mls @ 80 mls/hr 07/01/24 06:00 IV 07/01/24 23:59 INFUSION BETH Cefazolin Sodium/Dextrose 2 gm in 50 mls @ 100 mls/hr 07/01/24 06:00 Ancef Duplex IVPB 07/01/24 23:59 PREOP BETH Tranexamic Acid/Sodium Chloride 1,000 mg in 100 mls @ 600 mls/hr 07/01/24 06:00 IVPB 07/01/24 23:59 PREOP BETH IV Miscellaneous Supplies 1 each 07/01/24 06:00 Iv Access IV 07/01/24 23:59 DIRECTED BETH Sodium Chloride 0 ml 07/01/24 06:00 Normal Saline Flush 10 Ml Syr IV 07/01/24 23:59 PRN PRN Sodium Chloride 0 ml 07/01/24 06:00 Normal Saline 10 Ml Vial IJ 07/01/24 23:59 DIRECTED PRN Sterile Water 0 ml 07/01/24 06:00 Water,Injection,Sterile 10 Ml Vial IJ 07/01/24 23:59 DIRECTED PRN PFSH Active Problems Active Problems: Problem Status Onset Code Tear of medial meniscus of left knee Acute S83.242A Skin lesion Acute L98.9 Chondrocalcinosis of left knee Acute M11.262 LLQ pain Acute R10.32 Tendinitis of ankle or foot Acute M77.50 Dysesthesia Acute R20.8 Nicotine dependence Acute F17.200 Personal history of nicotine dependence Acute Z87.891 Hyperlipidemia Acute E78.5 Medical History Medical History Hx of gastroesophageal reflux (GERD) Cervicalgia Base of neck without deformity or radiculopathy Urothelial carcinoma of bladder Surgical History Surgical History Hx of cystoscopy H/O transurethral resection of bladder tumor (TURBT) History of total right hip replacement (07/27/20) Tobacco Smoking/Tobacco Use Status: Current every day Tobacco Type: cigarettes Smoking packs per day: 1 Smoking cigarettes per day: 20.0 Passive smoking exposure: Yes Second hand exposure: Yes Alcohol Alcohol Intake: current Alcohol intake frequency: holidays/special occasions only Alcohol type: beer Substance Use Substance use: Daily Substance use type: marijuana Details: 07/01/24: pt smoked 5 cigarettes prior to admission to [facility] today Vital Signs and Lab Results Vital Signs Most Recent Vital Signs in EMR: Most Recent Vital Signs Temp Pulse Resp BP Pulse Ox 37 C 63 16 116/77 98 07/01/24 11:08 07/01/24 11:08 07/01/24 11:08 07/01/24 11:08 07/01/24 11:08 Lab Results Blood Type / Crossmatch: No Data to Display Complete Blood Count: No Data to Display Complete Metabolic Panel: No Data to Display Liver Function Panel: No Data to Display Coagulation Panel: No Data to Display Cardiac Panel: No Data to Display Arterial Blood Gas: No Data to Display Venous Blood Gas: No Data to Display Pancreas Panel: No Data to Display Thyroid Panel: No Data to Display Infectious Disease: No Data to Display Blood Cultures: No Data to Display Toxicology Panel: No Data to Display Imaging and Studies Imaging and Studies Study information below may be from another EMR and interpreted by another provider. Please see original notes in EMR for more complete details. EKG Summary: 12/31: sinus elsy. Anesthesia Assessment and Plan Anesthesia History Personal History: No History of Anesthesia Complications Family History: No Family History of Anesthesia Complications Exercise Tolerance Exercise Tolerance: Metabolic Equivalents>4 Pertinent Negatives Pertinent Negatives: No Symptoms of GERD Cardiac & Pulmonary Exam Cardiac Exam: Normal S1/S2 Heart Sounds Pulmonary Exam: Clear Bilateral Breath Sounds Implantable Cardiac Device Does patient have a Pacemaker or an ICD?: No Airway Exam Known Difficult Airway: No Mallampati Class: 2 Mouth Opening: Normal (> 3cm) Thyromental Distance: Greater than 3 cm Neck Range of Motion: Full ROM Neck Circumference: Normal Teeth Condition: Loose or Chipped ASA Classification ASA Score: ASA 2 Emergency Case?: No NPO Status NPO Status: NPO Clears >2 hours, Solids >8 hours Anesthesia Plan Resuscitation Status: Full Code Anesthesia Technique: General Anesthesia Airway Planned: LMA Monitors Used: Standard Monitors
[2024-07-01] MEDS: Lactated Ringers 1,000 ML 80 ML IV (11:38)
[2024-07-01] MEDS: Bupivacaine 0.25% Pres-Free W/EPI 30 ML VIAL (13:30)
[2024-07-01] MEDS: TRANEXAMIC ACID/SOD. CHL. 1,000 MG/100 ML BAG 600 MG IVPB (13:32)
[2024-07-01] MEDS: ceFAZolin 2 GM/50 ML BAG IVPB (13:32)
[2024-07-01] MEDS: EPINEPHrine 10 MG/10 ML ML (13:52)
--- NOTE | 2024-07-01 15:13 | W.ANESPOSTOP ---
Postoperative Evaluation Date, Time and Location Date Performed: 07/01/24 Time Performed: 14:02 Patient Location: Day Surgery Unit Vital Signs Most Recent Imported Vital Signs: Most Recent Vital Signs Temp Pulse Resp BP Pulse Ox 36.3 C L 54 L 14 127/64 98 07/01/24 14:47 07/01/24 14:47 07/01/24 14:47 07/01/24 14:47 07/01/24 14:47 Pain Score Most Recent Pain Score: Most Recent Pain Score Pain Level 4 07/01/24 14:47 Assessment Mental Status: Awake (Alert & Oriented to Patient Baseline) Airway and Respiratory Function: Patent airway with normal (patient baseline) respiratory exam Cardiovascular Function: Hemodynamically Stable Hydration Status: Adequately Hydrated Nausea & Vomiting: No Nausea or Vomiting Pain: Pain is tolerable per patient Peripheral Nerve Block: Patient did not receive a nerve block Postoperative Comments:: Discussed aspiration s/s with patient and . Will go home with handout and return is any symptoms of illness appear. Currently denies SOB, slight pain on taking a deep breath, good room air saturation. Will present to ED if needed.
[2024-07-01] MEDS: HYDROcodone 5/Acetaminophen 325 TAB PO (15:20)
--- NOTE | 2024-07-01 21:11 | ROE_ITS ---
Operative Note Operative Note PRE-OP DIAGNOSIS: Left medial meniscal tear POST-OP DIAGNOSIS: same PROCEDURE: Arthroscopic partial medial meniscectomy, left knee SURGEON: Oh Ernst ANESTHESIA TYPE: General LMA/ETT Refer to Anesthesia Record ESTIMATED BLOOD LOSS: 0 PATHOLOGY: none sent COMPLICATIONS: None Patient was transported to: PACU Patient's condition: stable Indications: I have seen Hayes in clinic for symptoms of a meniscus tear. This was confirmed based on MRI and exam findings. Nonoperative measures were exhausted but disability and pain persisted. I discussed knee arthroscopy with meniscal inter vention with the patient. I reviewed the risks of the procedure to include, but not limited to, bleeding, infection, pain, stiffness, damage to nerves or vessels, recurrence, blood clot. Despite these risks, the patient elected to proceed. Findings: A diagnostic arthroscopy was performed with the following findings: Suprapatellar Pouch: No significant inflammation, No loose bodies Medial Compartment: Complex medial meniscal tear, Intact meniscal root, No significant chondromalacia or signs of arthritis, No loose bodies Notch: ACL and PCL were intact Lateral Compartment: No meniscal tear, Intact meniscal root, No significant chondromalacia or signs of arthritis, No loose bodies Patellofemoral Compartment: Grade I chondromalacia mostly of the patella, No apparent patellar maltracking Procedure Description: Hayes was greeted in the preoperative holding area where the correct side was identified and marked. The consent was reviewed with the patient and signed. The history and physical was updated. All questions were answered. He was taken back to the operating room. The patient was placed into the supine position on the operating room table. A nonsterile tourniquet was placed high onto the leg but not used. All bony prominences were well padded. Prophylactic antibiotics in the form of Cefazolin were administered. The left leg was then prepped with Chloraprep and draped in a standard fashion with stockinette and extremity drape. A timeout to confirm correct identity, side and site, procedure, allergies, anesthesia, and medical concerns was performed. The leg was placed into a pneumatic leg delarosa, [id number]. A standard lateral portal was made at the lateral border of the patella tendon in line with the inferior pole of the patella, soft spot. The skin and deep tissue was incised sharply and the blunt trochar was inserted atraumatically. A diagnostic arthroscopy was performed and the findings are listed above. The suprapatellar pouch had no significant inflammatory change. The patellofemoral articulation showed minimal grade I chondromalacia as well as good tracking. The lateral gutter had no loose bodies and the medial gutter had no loose bodies. The knee was brought into some valgus stress in extension to open the medial compartment. A medial portal was made, localized by a spinal needle. The portal was created with an #11 blade through skin and capsule under direct visualization avoiding any meniscal injury. A probe was then inserted into the medial compartment. The medial compartment was fully inspected. The chondral surface of the tibia showed no significant chondromalacia and the surface of the femur showed no significant chondromalacia. The medial meniscus had a complex tear with a flipped, displaced fragment medially. This was mostly at the posterior horn who with of extension of a horizontal type tear posteriorly. After evaluation, the meniscus was debrided down to a stable base using a series of biters and arthroscopic ralph. It was probed afterwards to confirm that the tear had been removed and the meniscus was stable. The notch was then inspected which showed an intact ACL and an intact PCL. The leg was then brought into a figure of 4 position. The lateral compartment was fully inspected with the arthroscope and a probe. The chondral surface of the lateral femur showed no significant chondromalacia. The chondral surface of the lateral tibia showed no significant chondromalacia. The lateral meniscus had no meniscal tear. The arthroscope was brought back into the suprapatellar pouch and the leg was in full extension. The knee was thoroughly irrigated with the arthroscopic fluid on high flow and pressure. Inflow was stopped and excess fluid was removed. The wounds were closed with 4-0 Nylon. They were dressed with Xeroform, 4x4 gauze, ABD pad, Kerlix and an LUCY wrap. A cryo-cuff was applied. The patient tolerated the procedure well and was returned to the Same Day Surgery area in a stable condition suffering no known complication. Date of Procedure: 07/01/24
== END 2024-07-01 16:00 | disposition home or self-care (01) ==
LOC: SUR 10:40
PROVIDERS: PCP Nurse Practitioner Family; Visit Provider Student in an Organized Health Care Education/Training Program
PROC: (CPT 29870; principal; 2024-07-01 13:30)
DX: M23.232 Derangement of other medial meniscus due to old tear or injury, left knee (principal); M11.262 Other chondrocalcinosis, left knee; F17.210 Nicotine dependence, cigarettes, uncomplicated; E78.5 Hyperlipidemia, unspecified; K21.9 Gastro-esophageal reflux disease without esophagitis; M22.42 Chondromalacia patellae, left knee
CPT/HCPCS: 29881; J0330; J0690; J1100; J1885; J2250; J2405; J2704